=== PATIENT | female | born 1970 | race Caucasian/White ===

== ENCOUNTER 2020-07-13 10:07 | Outpatient (REF) | payer OTHER, SELFPAY ==
[2020-07-13 11:13] LABS: MANUAL DIFF FLAG NO
[2020-07-13 11:23] LABS: Basophils Absolute Auto 0.1 X10*3/uL (0.0-0.2); Basophils Percent Auto 1.2 % (0-2); Eosinophils Absolute Auto 0.1 X10*3/uL (0.0-0.4); Eosinophils Percent Auto 1.4 % (0-4); Hematocrit 41.6 % (37-47); Hemoglobin 13.9 g/dl (12.0-16.0); Imm Gran Abs Auto 0.05 X10*3/uL (0.00-0.03); Imm Gran Pct Auto 0.8 % (0.0-0.4); Lymphocytes Absolute Auto 1.7 X10*3/uL (1.2-4.9); Lymphocytes Percent Auto 29.2 % (20-40); Mean Corpuscular HGB Conc 33.4 g/dl (31.0-35.0); Mean Corpuscular Hemoglobin 30.6 pg (27.0-33.0); Mean Corpuscular Volume 91.6 fL (80-98); Mean Platelet Volume 10.9 fL (9.4-12.3); Monocytes Absolute Auto 0.5 X10*3/uL (0.1-1.2); Monocytes Percent Auto 8.3 % (2-11); Neutrophils Absolute Auto 3.5 X10*3/uL (2.0-8.3); Neutrophils Percent Auto 59.1 % (45-73); Platelet Count 292 X10*3/uL (160-400); Red Blood Count 4.54 X10*6/uL (4.20-5.50); Red Cell Distribution Width 12.1 % (11.0-16.0); White Blood Count 5.9 X10*3/uL (4.8-10.8)
[2020-07-13 11:53] LABS: Alanine Aminotransferase 12 U/L (0-31); Anion Gap 11 (12-20); Aspartate Amino Transferase 15 U/L (5-31); Blood Urea Nitrogen 11 mg/dL (9-16); Calcium 9.1 mg/dL (8.4-10.2); Carbon Dioxide 25 mmol/L (22-29); Chloride 105 mmol/L (96-108); Cholesterol 210 mg/dL; Estimated Glomerular Filt Rate > 60; Glucose Fasting 82 mg/dL (60-99); HDL Cholesterol 84 mg/dL; LDL Cholesterol Calculated 113 mg/dl; Potassium 4.3 mmol/l (3.3-5.1); Sodium 137 mmol/L (135-145); Triglycerides 68 mg/dL
[2020-07-13 12:15] LABS: Free T4 (Free Thyroxine) 1.49 ng/dL (0.71-1.85); Thyroid Stimulating Hormone 1.07 uIU/mL (0.32-4.0)
== END 2020-07-13 10:08 | disposition home or self-care (01) ==
LOC: HO.HMGCLDS 10:07
PROVIDERS: PCP Internal Medicine; Visit Provider Internal Medicine
DX: E03.9 Hypothyroidism, unspecified (principal); Z00.01 Encounter for general adult medical examination with abnormal findings; I10 Essential (primary) hypertension
CPT/HCPCS: 36415; 80048; 80061; 84439; 84443; 84450; 84460; 85025

== ENCOUNTER → 2020-10-25 14:42 | Outpatient (REF) | payer OTHER, SELFPAY ==
--- NOTE | 2020-10-25 14:46 | CA_ITS ---
Transthoracic Echocardiogram Patient (Last, First, Middle): Sujey Rodriguez, Gender: Female Date of : 1970 Age: 50 Procedure Date: 10/25/2020 Procedure Type: Transthoracic Echocardiogram Location: OP Height: 157.48 cm Weight: 58.97 kg BSA: 1.59 m2 Heart Rate: bpm BP: 110 / 50 mmHg General Practice: [facility] Referring MD: Corin Shah MD Symptoms: R00.2 - Palpitations Study Quality: Good ECG Rhythm: Sinus Conclusions: - The left ventricular systolic function is normal. The visually estimated ejection fraction is between 60-65%. - No obvious valvular pathology seen on this study. Findings Left Ventricle Normal left ventricular cavity size. There is normal left ventricular wall thickness. The left ventricular systolic function is normal. The visually estimated ejection fraction is between 60-65%. The calculated ejection fraction is 67% by biplane method. There is no evidence of regional wall motion abnormalities. Diastolic function is normal for age. Right Ventricle Normal right ventricular cavity size and systolic function. Atria Both atria are normal in size. Aortic Valve There is a normal trileaflet aortic valve. There is no aortic valve stenosis. There is no aortic valve regurgitation. Mitral Valve The mitral valve appears normal. There is trace mitral valve regurgitation. There is no mitral valve stenosis. Pulmonic Valve The pulmonic valve was not well visualized. Tricuspid Valve Normal tricuspid valve structure. There is trace tricuspid valve regurgitation. The pulmonary artery systolic pressure is normal. Great Vessels The aortic annulus, sinuses of valsalva, and asc aorta are normal in size. Venous The inferior vena cava is normal in size and collapses greater than 50% with inspiration. Pericardium/Pleural There is no evidence of pericardial effusion. Prior Study Comparison No prior study available for comparison. Recommendations, Care & Conclusions No obvious valvular pathology seen on this study. Measurements 2D Linear Measurements IVSd: 0.72 0.6-0.9/0.6-1.0 cm LVIDd: 4.31 3.9-5.3/4.2-5.9 cm LVIDd Index: 2.71 2.4-3.2/2.2-3.1 cm/m2 LVIDs: 3.11 2.0-3.6 cm LVPWd: 0.68 0.7-1.1 cm Ao Root: 2.80 2.1-3.5 cm LA Diam: 2.90 2.7-3.8/3.0-4.0 cm LAIDs Index: 1.82 1.5-2.3 cm/m2 LV Mass: 110.55 67-162/88-224 g LV Mass Index: 69.53 43-95/49-115 g/m2 LVOT Diam: 2.00 3.0+(-)1.3 cm 2D Systolic Function EF 4C: 65.50 >55% EF 2C: 67.40 >55% EF BiP: 66.80 >55% Mitral Valve MV Pk E: 0.88 MV PK A: 0.52 MV Decel Time: 246.00 E/A: 1.70 E'Lateral: 12.70 E'Medial: 10.30 E/E' Med: 8.60 E/E' Lat: 6.90 PHT: 72.00 MVA PHT: 3.06 Decel Clarke: 3.58 Aortic Valve AoV Pk Michael: 1.52 AoV Mn Michael: 0.94 AoV VTI: 0.27 AoV Pk Grad: 9.00 Aov Mn Grad: 4.00 KARIE Cont.VTI: 2.12 LVOT LVOT Pk Michael: 1.00 LVOT Mn Michael: 0.61 LVOT VTI: 0.18 LVOT Pk Grad: 4.00 LVOT Mn Grad: 2.00 LVOT Diam: 2.00 LVOT Area: 3.14 Diastolic Function MV Pk E: 0.88 MV Pk A: 0.52 E/A: 1.70 E'Medial: 10.30 E/E' Med: 8.60 E' Laterial: 12.70 E/E' Lat: 6.90 Tricuspid Valve TR Pk Michael: 2.02 TR Pk Grad: 16.00 RA Press: 3.00 RVSP: 19.00 Great Vessels Aorta Ao Root-2D: 2.80 2.0-3.7 cm Ao Asc: 2.60 2.1-3.4 cm Ao Arch: 2.70 Updated in Other Vendor System with Status of Final Kehinde Valenzuela MD electronically signed on 10/27/2020 2:31:32 PM with status of Final
== END ==
LOC: HO.CARD 14:42
PROVIDERS: PCP Internal Medicine; Visit Provider Internal Medicine
DX: R00.2 Palpitations (principal)
CPT/HCPCS: 93306

== ENCOUNTER → 2020-11-27 14:45 | Outpatient (BNVA) | payer OTHER, SELFPAY | PROVIDERS: PCP Internal Medicine; Visit Provider Anesthesiology ==

== ENCOUNTER 2021-01-16 06:25 | Outpatient (REF) | payer OTHER, SELFPAY ==
--- NOTE | ~2021-01-16 | FL_ITS ---
EXAMINATION: XR FLUOROSCOPY WITH IMAGES CLINICAL INFORMATION: Sacrococcygeal disorder. COMPARISON: None. TECHNIQUE: Fluoroscopy performed by Desiree Haas. Fluoroscopy time: 0.1 minutes DAP: 1.25 Gycm2 Images: 2 FINDINGS: There are 2 images obtained of left SI joint with needle overlying the left SI joint and contrast opacifying the soft tissues adjacent to left SI joint. Visualized bones and soft tissues are normal. FL/FL guidance in treatment room IMPRESSION: Fluoroscopy was provided to Desiree Haas for left SI joint injection
== END 2021-01-16 06:26 | disposition home or self-care (01) ==
LOC: HO.RADIR 06:25
PROVIDERS: Visit Provider Anesthesiology
DX: M53.3 Sacrococcygeal disorders, not elsewhere classified (principal)
CPT/HCPCS: 27096; J3300; Q9967

== ENCOUNTER 2021-02-06 12:23 | Outpatient (REF) | payer OTHER, SELFPAY ==
[2021-02-06 14:41] LABS: Free T4 (Free Thyroxine) 1.74 ng/dL (0.71-1.85); Thyroid Stimulating Hormone 0.47 uIU/mL (0.32-4.0)
== END 2021-02-06 12:24 | disposition home or self-care (01) ==
LOC: HO.HMGCLDS 12:23
PROVIDERS: PCP Internal Medicine; Visit Provider Internal Medicine
DX: E03.9 Hypothyroidism, unspecified (principal)
CPT/HCPCS: 36415; 84439; 84443

== ENCOUNTER → 2021-02-28 10:59 | Outpatient (BNVA) | payer OTHER, SELFPAY | PROVIDERS: PCP Internal Medicine; Visit Provider Anesthesiology ==

== ENCOUNTER 2021-07-13 12:30 | Outpatient (REF) | payer OTHER, SELFPAY ==
[2021-07-13 14:35] LABS: Alanine Aminotransferase 15 U/L (0-31); Anion Gap 14 (12-20); Aspartate Amino Transferase 17 U/L (5-31); Blood Urea Nitrogen 9 mg/dL (9-16); Calcium 9.8 mg/dL (8.4-10.2); Carbon Dioxide 24 mmol/L (22-29); Chloride 105 mmol/L (96-108); Cholesterol 238 mg/dL; Estimated Glomerular Filt Rate > 60; Glucose Fasting 77 mg/dL (60-99); Potassium 4.3 mmol/L (3.3-5.1); Sodium 139 mmol/L (135-145); Triglycerides 74 mg/dL
[2021-07-13 14:41] LABS: HDL Cholesterol 92 mg/dL; LDL Cholesterol Calculated 132 mg/dl
[2021-07-13 14:58] LABS: Free T4 (Free Thyroxine) 1.45 ng/dL (0.71-1.85); Thyroid Stimulating Hormone 1.09 uIU/mL (0.32-4.0); Vitamin D 25-OH Total 22.7 ng/mL (>30)
== END 2021-07-13 12:31 | disposition home or self-care (01) ==
LOC: HO.HMGCLDS 12:30
PROVIDERS: PCP Internal Medicine; Visit Provider Internal Medicine
DX: Z00.01 Encounter for general adult medical examination with abnormal findings (principal); E03.9 Hypothyroidism, unspecified; E55.9 Vitamin D deficiency, unspecified; I10 Essential (primary) hypertension
CPT/HCPCS: 36415; 80048; 80061; 82306; 84439; 84443; 84450; 84460

== ENCOUNTER → 2021-07-18 13:33 | Outpatient (BNVA) | payer OTHER, SELFPAY | PROVIDERS: PCP Internal Medicine; Referring Provider Internal Medicine; Visit Provider Nurse Practitioner Family ==

== ENCOUNTER 2021-09-06 07:25 | Day surgery (SDC) | payer BC, SELFPAY ==
[2021-08-31 10:44] VITALS: BMI 24.7
--- NOTE | 2021-09-05 09:31 | HO.ANESPROP2 ---
Documented by User: Nguyen Rust NP 09/05/21 09:40 HPI - Anesthesia Eval Consult details Narrative: 51yo F Colonoscopy PMFSH Active Problems Active Problems: All Active Problems (Updated 03/08/21 @ 10:32 by Corin Shah MD) Vitamin D deficiency (Acute) Acute anxiety (Acute) Sacroiliac joint dysfunction of left side (Acute) Pain of left sacroiliac joint (Acute) Encounter for general adult medical examination with abnormal findings (Acute) Acquired hypothyroidism (Acute) Adenomyosis (Acute) Past Medical History Medical History Acquired hypothyroidism Acute anxiety Adenomyosis History of diverticulitis Pain of left sacroiliac joint Sacroiliac joint dysfunction of left side Vitamin D deficiency Family History Family History Father Unknown family medical history Substance use disorder Mother CVD (cardiovascular disease) Brother Melanoma Substance use disorder Daughter No problems noted. 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 Current occupational exposures/hazards: No Meds Allergies Allergy/AdvReac Type Severity Reaction Status Date / Time codeine AdvReac Unknown stomach Verified 08/05/21 17:08 upset Home Medications Medication Instructions Recorded Confirmed Last Taken Type norethindrone 1 mg-ethinyl 1 tab PO DAILY 05/25/20 08/31/21 09/05/21 06:30 History estradiol 10 mcg (24)-iron 10 mcg(2) tablet Exam Exam Date and Time: September 05, 2021 0931 Height,Weight and Vital Signs: Height 5 ft 2 in Weight 61.36 kg Pertinent Lab Results Pertinent Lab Results: Laboratory Tests 07/13/20 07/13/21 10:18 12:34 WBC 5.9 Hgb 13.9 Hct 41.6 Plt Count 292 Sodium 139 Potassium 4.3 Chloride 105 Carbon Dioxide 24 BUN 9 Creatinine 0.73 Assessment and Plan Assessment Anesthesia Assessment: Chart Reviewed Documented by User: Racquel Cotton MD 09/06/21 08:05 [facility] Past Medical History Medical History Acquired hypothyroidism Acute anxiety Adenomyosis History of diverticulitis Pain of left sacroiliac joint Sacroiliac joint dysfunction of left side Vitamin D deficiency Functional capacity: independent ambulation Patient : No Family History Family History Father Unknown family medical history Substance use disorder Mother CVD (cardiovascular disease) Brother Melanoma Substance use disorder Daughter No problems noted. 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 Current occupational exposures/hazards: No Meds Allergies Allergy/AdvReac Type Severity Reaction Status Date / Time codeine AdvReac Unknown stomach Verified 08/05/21 17:08 upset Home Medications Medication Instructions Recorded Confirmed Last Taken Type norethindrone 1 mg-ethinyl 1 tab PO DAILY 05/25/20 08/31/21 09/05/21 06:30 History estradiol 10 mcg (24)-iron 10 mcg(2) tablet Exam Airway Mallampati Class: II TM Dist: >3cm Neck ROM: Full Heart: RRR Lungs: CTA Assessment and Plan Final Anesthetic Review Family History of Problems with Anesthesia: No History of Problems with Anesthesia: No NPO: Yes ASA Class: II Final Preanesthetic Review: No Changes in Pt Med Stat, Meds/Allgs Chart Reviewed, Consent Obtained/Reviewed and Anes Risks/Benef Reviewed Patient Risk: Low Procedure Risk: Low Anesthetic Plan Anesthetic Plan: MAC: Disposition: Standard PACU
[2021-09-06 07:54] VITALS: BP 126/67; PULSE 75; RESP 16; TEMP 36.6; O2SAT 99
[2021-09-06] MEDS: Lactated Ringers 1,000 ML 100 ML IVCONT (08:01)
--- NOTE | 2021-09-06 08:34 | MHC.SHP ---
Pre-Procedural Eval Section A Date of Service: 09/06/21 Section B Chief Complaint: Screening Relevant Family History (Specify if Yes): No Relevant Social History: None Present Medications: see Short Stay Collaborative assessment Medical History: Significant History (Acquired hypothyroidism Acute anxiety Adenomyosis History of diverticulitis Pain of left sacroiliac joint Sacroiliac joint dysfunction of left side Vitamin D deficiency) History of Previous Operations: Relevant previous surgery/procedure and date(s) (Hx of cholecystectomy Hx of colonoscopy) Allergies: Allergies Allergy/AdvReac Type Severity Reaction Status Date / Time codeine AdvReac Unknown stomach Verified 08/05/21 17:08 upset Review of Systems Sugical H&P ROS: Negative: Constitution, Cardiovascular, Respiratory, Neurological, Psychiatric, Hem-Onc, Allergic/Immunologic, Gastrointestinal, Genitourinary, Musculoskeletal, Integumentary, Endocrine and Eyes/Ears/Nose/Throat Exam Surgical H&P Exam: Normal: HEENT, Normal: Heart, Normal: Lungs, Normal: Extremities, Normal: Abdomen, Normal: Skin and Normal: Neurological Plan Diagnosis/Plan: Unchanged I have reviewed the history and physical and performed a pertinent physical examination on my patient. No changes have occurred unless specified.
--- NOTE | 2021-09-06 08:36 | P.BOP_ITS ---
Brief Operative Note Date of Service: 09/06/21 Pre-op diagnosis: colon screening Post-op diagnosis: same Procedure: see op note Surgeon: Jeni Miller MD Anesthesia: MAC Was an [employer] used for this Procedure?: No Estimated blood loss (mL): 0 Condition: stable Disposition: PACU
--- NOTE | 2021-09-06 08:59 | W.PM.OPN ---
Operative Note Operative Note Date of Service: 09/06/21 Narrative: Operative Information Procedure Description: Colonoscopy COLONOSCOPY Instrument: Olympus variable stiffness pediatric scope 190L Colonoscopy Monitoring: Vital signs and clinical assessment, continuous EKG monitoring, Pulse oximetry, Carbon Dioxide monitoring and blood pressure monitoring were done throughout the procedure. Colon withdrawal time was 7 minutes. Procedure: The patient was placed in the left lateral decubitis position and pre-procedure medications were administered. After a digital rectal examination of the ano-rectum, the video colonoscope was inserted into the rectum and advanced through the colon to the cecum/TI. The colonoscope was slowly withdrawn in a retrograde panoramic fashion and the colon mucosa was carefully examined including a retroflexed view of the rectum. Findings and interventions are described below. Procedure Difficulty: easy Findings: Terminal Ileum-normal right sided retroflexion was normal Cecum: 4-5- mm sessile polyp removed with forceps Ascending Colon: normal Transverse Colon -normal Descending Colon:normal Sigmoid Colon: moderate severe diverticula of varying sizes with tight colon, and mucosal hypertrophy Rectum: Retroflexion with small internal hemorrhoids, grade II Anorectum - internal hemorrhoids seen at anal verge Colon preparation: Paterson Bowel Preparation Scale Right colon; 2 Transverse colon: 3 Left colon; 2 (0 = Unprepared colon segment with mucosa not seen due to solid stool that cannot be cleared. 1 = Portion of mucosa of the colon segment seen, but other areas of the colon segment not well seen due to staining, residual stool and/or opaque liquid. 2 = Minor amount of residual staining, small fragments of stool and/or opaque liquid, but mucosa of colon segment seen well. 3 = Entire mucosa of colon segment seen well with no residual staining, small fragments of stool or opaque liquid) Impression and Post Procedure Diagnosis: polyp internal hemorrhoids diverticular disease Plan: High fiber diet leaflet Avoid straining at stool, epsom salts and sitz bath, anusol supps or cream Repeat Colonoscopy in 5-7 years if adenomatous polyp or 10 yrs if benign or earlier if clinically indicated Above findings were reviewed with the patient and relevant handouts were provided if indicated.
[2021-09-06 09:02] VITALS: BP 103/56; PULSE 68; RESP 16; TEMP 36.1; O2SAT 99
--- NOTE | 2021-09-06 09:11 | PC.NURSE ---
patient sitting up in bed. md kirby by bedside.
[2021-09-06 09:17] VITALS: BP 127/57; PULSE 66; RESP 16; TEMP 36.2; O2SAT 100
--- NOTE | 2021-09-06 12:54 | HO.POSTANES ---
Post Anesthesia Evaluation Post Anesthesia Evaluation Vital Signs: Vital Signs Temp Pulse Resp BP Pulse Ox 09/06/21 09:17 97.1 F 66 16 127/57 L 100 09/06/21 09:02 96.9 F 68 16 103/56 L 99 09/06/21 07:54 97.8 F 75 16 126/67 99 Anesthesia: Monitored Mental Status: Awake Pain Control: Satisfactory Nausea/Vomiting: None Hydration: Adequate Anesthesia-Related Issues: No Anes. Related Issues
== END 2021-09-06 09:53 | disposition home or self-care (01) ==
PROVIDERS: PCP Internal Medicine; Visit Provider Internal Medicine Gastroenterology
PROC: 0DJD8ZZ Inspection of Lower Intestinal Tract, Via Natural or Artificial Opening Endoscopic (ICD-10-PCS; CPT 45378; principal; 2021-09-06 08:30)
DX: Z12.11 Encounter for screening for malignant neoplasm of colon (principal); D12.0 Benign neoplasm of cecum; K57.30 Diverticulosis of large intestine without perforation or abscess without bleeding; K64.1 Second degree hemorrhoids; E03.9 Hypothyroidism, unspecified; F41.1 Generalized anxiety disorder; E55.9 Vitamin D deficiency, unspecified; N80.0 Endometriosis of uterus; Z79.899 Other long term (current) drug therapy; Z90.49 Acquired absence of other specified parts of digestive tract
CPT/HCPCS: 45380; 88305

== ENCOUNTER → 2021-09-25 08:00 | Outpatient (BNVA) | payer BC, SELFPAY | PROVIDERS: Referring Provider Internal Medicine; Visit Provider Nurse Practitioner Family ==

== ENCOUNTER 2022-11-01 08:33 | Outpatient (REF) | payer BC, SELFPAY ==
[2022-11-01 12:46] LABS: Alanine Aminotransferase 13 U/L (0-31); Anion Gap 10 (12-20); Aspartate Amino Transferase 14 U/L (5-31); Blood Urea Nitrogen 8 mg/dL (9-16); Carbon Dioxide 26 mmol/L (22-29); Chloride 109 mmol/L (96-108); Cholesterol 206 mg/dL; Estimated Glomerular Filt Rate > 60; Free T4 (Free Thyroxine) 1.25 ng/dL (0.71-1.85); Glucose Fasting 90 mg/dL (60-99); HDL Cholesterol 89 mg/dL; LDL Cholesterol Calculated 104 mg/dl; Potassium 4.1 mmol/L (3.3-5.1); Sodium 141 mmol/L (135-145); Thyroid Stimulating Hormone 4.48 uIU/mL (0.32-4.0); Triglycerides 69 mg/dL; Vitamin D 25-OH Total 31.4 ng/mL (>30)
== END 2022-11-01 08:34 | disposition home or self-care (01) ==
LOC: HO.HMGCLDS 08:33
PROVIDERS: PCP Internal Medicine; Visit Provider Internal Medicine
DX: E03.9 Hypothyroidism, unspecified (principal); E55.9 Vitamin D deficiency, unspecified; F41.9 Anxiety disorder, unspecified
CPT/HCPCS: 36415; 80048; 80061; 82306; 84439; 84443; 84450; 84460

== ENCOUNTER 2022-11-05 10:27 | Outpatient (AMB) | payer BC, SELFPAY ==
[2022-11-05 10:41] VITALS: BP 122/80; PULSE 74; O2SAT 98; BMI 25.0
--- NOTE | 2022-11-05 10:41 | A.OFFPC_ITS ---
Vital Signs 11/05/22 10:41 Height 5 ft 2 in Weight 137 lb 2 oz BMI 25.0 BP 122/80 Blood Pressure Location Lt brachial Position Sitting Pulse 74 Pulse Source Pulse Oximeter Pulse Oximetry (%) 98 Oxygen Delivery Method Room Air Intake Visit Reasons: Medication follow up Intake Note: Pt is here today for med f/u Allergies codeine Adverse Reaction (Unknown, Verified 05/22/23 13:05) stomach upset Medication List - Last Reconciled 11/05/22 by Corin Shah MD hydroxyzine HCl 25 mg PO BEDTIME PRN levothyroxine 112 mcg PO DAILY norethindrone-e.estradiol-iron 1 mg-10 mcg (24)/10 mcg (2) (Lo Loestrin Fe) 0 tabs PO Tobacco use date assessed: 11/05/22 HPI Medication follow up HPI Details 52-year-old lady with hypothyroidism, he re today for follow-up. Currently on levothyroxine 112 mcg once a day, states she is feeling well on medication. Has anxiety disorder, currently takes hydroxyzine as needed [facility] Medical History (Updated 11/05/22 @ 10:53 by Corin Shah MD) History of diverticulitis Vitamin D deficiency Acute anxiety Sacroiliac joint dysfunction of left side Pain of left sacroiliac joint Acquired hypothyroidism Adenomyosis Surgical History Hx of colonoscopy Hx of cholecystectomy Family History Father Unknown family medical history Substance use disorder Mother CVD (cardiovascular disease) Brother Melanoma Substance use disorder Daughter No problems noted. 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 1. Little interest or pleasure in doing things: not at all 2. Feeling down, depressed, or hopeless: not at all 3. Trouble falling or staying asleep, or sleeping too much: not at all 4. Feeling tired or having little energy: not at all 5. Poor appetite or overeating: not at all 6. Feeling bad about yourself - or that you are a failure or have let yourself or your family down: not at all 7. Trouble concentrating on things, such as reading the newspaper or watching television: not at all 8. Moving or speaking so slowly that other people could have noticed. Or the opposite - being so fidgety or restless that you have been moving around a lot more than usual: not at all 9. Thoughts that you would be better off or of hurting yourself in some way: not at all Total score: 0 Depression Screening Interpretation: Negative 42131 - PHQ-9 Billing: Yes Source: Developed by Drs. Christian Aden, Vicky Nayak, Dayton Ziegler and colleagues, with an educational harjeet from [employer]. Thrive Questionnaire Date Thrive assessed: 11/05/22 I am a: Patient What is your living situation today?: I have a steady place to live Within the past 12 months, did the food you bought not last and you didn't have the money to get more?: Never true Within the past 12 months, did you worry whether your food would run out before you got money to buy more?: Never true Do you have trouble paying for medicines?: No Do you have trouble getting transportation to medical appointments?: No Do you have trouble paying your heating and electricity bill?: No Do you have trouble taking care of your child, family member or friend?: No Do you have trouble with day-to-day activities such as bathing, preparing meals, shopping, managing finances, etc.?: No Are you currently unemployed and looking for a job?: No Are you interested in more education?: No AUDIT C Alcohol Use Questionnaire (AUDIT-C) 1. How often do you have a drink containing alcohol?: Monthly or less 2. How many drinks containing alcohol do you have on a typical day when you are drinking?: 1 or 2 3. How often do you have six or more drinks on one occasion?: Never Total Score: 1 LOGAN-7 AMB Questionnaire LOGAN-7 Date LOGAN - 7 assessed: 11/05/22 Feeling nervous, anxious, or on edge: 0 = Not at all Not being able to stop or control worryin = Not at all Worrying too much about different things: 0 = Not at all Trouble relaxin = Not at all Being so restless that it is hard to sit still: 0 = Not at all Becoming easily annoyed or irritable: 0 = Not at all Feeling afraid as if something awful might happen: 0 = Not at all Total LOGAN-7 score (0-4 normal; 5-9 mild; 10-14 moderate; 15-21 severe): 0 Source: Developed by Drs. Christian Aden, Vicky Nayak, Dayton Ziegler and colleagues, with an educational harjeet from [employer]. LOGAN-7 Assessment Billing LOGAN-7 Assessment Tool: LOGAN-7 Assessment 80082 Review of Systems Const Denies fever(s), Denies headache(s) and Denies malaise Eyes Denies change in vision ENT Reports no additional complaints, Reports Normal hearing present, Denies dysphagia, Denies dizziness, Denies headache(s) and Denies nasal congestion Card Reports no additional complaints Resp Reports no additional complaints GI Denies abdominal pain, Denies melena, Denies change in bowel habits, Denies dysphagia, Denies dyspepsia and Denies heartburn Reports no additional complaints Musc Reports no additional complaints Neuro Reports no additional complaints, Reports Normal hearing present, Denies dizziness, Denies headache(s) and Denies Sensory deficit (Neuro) Psych Reports no additional complaints Endo Reports no additional complaints Physical exam (Primary Care) Vital Signs: Last Vital Signs Pulse 74 11/05/22 10:41 BP 122/80 11/05/22 10:41 Pulse Ox 98 11/05/22 10:41 Oxygen Delivery Method Room Air 11/05/22 10:41 BMI result Body Mass Index 25.0 Tobacco/Smoking Status: Tobacco use Status Tobacco use date assessed 11/05/22 11/05/22 10:48 Patient Tobacco Use Status Never used Tobacco 11/05/22 10:48 e-Cigarette/Vaping Use Never Used 11/05/22 10:48 PHQ-9: PHQ-9 Score PHQ-9: Total score 0 11/05/22 10:53 Depression Screening Interpretation: Negative Thrive Assessment: Date of Thrive Assessment Date Thrive assessed 11/05/22 11/05/22 10:48 Const General: cooperative, healthy appearing, no acute distress and alert Limitations: no limitations HENMT Head: Yes normal to inspection and Yes normocephalic Face and sinus: Yes normal facial exam and Yes face symmetric Mouth: Normal oral and palatal mucosa present, oropharynx normal and moist mucous membranes Eyes Conjunctivae: conjunctivae normal Sclerae: sclerae normal Pupils: Equal, round and reactive pupils present EOM: EOMs intact bilaterally Neck Neck: Yes full ROM and Yes no lymphadenopathy Thyroid: Thyroid normal Carotids: normal carotid upstroke Lymphatic: no lymphadenopathy noted Resp Effort & Inspection: normal respiratory effort and able to speak in complete sentences Auscultation: clear to auscultation bilaterally Cardio Jugular venous distension: no JVD Rate: regular rate Rhythm: regular rhythm Heart sounds: S1 normal heart sound present and S2 normal heart sound present GI Inspection: Yes normal to inspection Palpation (GI): Soft to palpation Auscultation: normal bowel sounds Neuro Cranial nerves: Yes Equal, round and reactive pupils present and Yes Normal hearing present Sensory Exam: No Sensory deficit (Neuro) Extrem General: Yes normal to inspection, Yes full ROM, Yes no pedal edema and Yes normal gait Psych Appearance: grossly normal and well kempt Mental Status: mental status grossly normal Speech and movement: Normal speech and movement present Affect: normal affect Attitude: cooperative Thought process: Normal thought process present Thought content: Normal thought content present Results Reviewed Results Reviewed: RUN: 11/05/22 1053 PAGE 1 [facility] [address] [place] [id number] Carburetor Mechanic: Fabricio Saldana M.D. Specimen Inquiry Name: Sujey Rodriguez Age/Sex: 52/F : 1970 [id number]#: [id number] Attend Dr: Corin Shah MD Re11/01/22 Status: DEP [facility] Disch: SPEC : [id number] ANDRES: 11/01/22 STATUS: COMP REQ : [id number] RECD: 11/01/[address]: Corin Shah MD COMP: 11/01/22 ENTERED: 11/01/[address] [facility] [address]: ORDERED: Met Prof Fast, AST, ALT, Lipid Panel, Vitamin D 25-OH, Free T4, TSH Test Result Flag Reference Site Sodium 141 135-145 mmol/L Potassium 4.1 3.3-5.1 mmol/L CL 109 H 96-108 mmol/L CO2 26 22-29 mmol/L Gap 10 L 12-20 BUN 8 L 9-16 mg/dL Creat 0.78 0.5-1.4 mg/dL EGFR > 60 NOTE: For -[place] individuals, multiply the result by 1.210. Chronic Kidney Disease: Estimated GFR < 60 mL/min/1.73m2 Severe Kidney Disease: Estimated GFR < 15 mL/min/1.73m2 FBS 90 60-99 mg/dL CA 9.0 # 8.4-10.2 mg/dL AST (GOT) 14 5-31 U/L ALT (GPT) 13 0-31 U/L Triglyceride 69 mg/dL Desirable Triglyceride: less than 150 mg/dL Borderline High Triglyceride 150-199 mg/dL High Triglyceride: 200-499 mg/dL Very High Triglyceride: greater than or equal to 5OO mg/dL Chol 206 mg/dL Desirable Cholesterol: less than 200 mg/dL Borderline High Cholesterol: 200-239 mg/dL High Cholesterol: greater than 239 mg/dL LDL Calculated 104 mg/dl Desirable LDL: less than 100 mg/dL Near Optimal/Above Optimal LDL: 110-129 mg/dL Borderline High LDL: 130-159 mg/dL High LDL: 160-189 mg/dL Very High LDL: greater than or equal to 190 mg/dL HDL 89 mg/dL Desirable HDL: greater than 40 mg/dL Note: This HDL assay may give artificially low results in patients with liver disease. Vit D 25-OH Tot 31.4 >30 ng/mL Health Based Reference Values* < 20 ng/mL Deficient 20-30 ng/mL Insufficient > 30 ng/mL Sufficient *Joss CARNEY. N Engl J Med. 2007;357:266-280 Care must be taken in interpreting Vitamin D results from different laboratories and methodologies. Published data demonstrated that results from patients undergoing hemodialysis may show a negative bias when tested with various automated 25-OH vitamin D assays when compared to LC-MS/MS. When testing samples from patients whose predominant form of Vitamin D is Vitamin D2, such as patients receiving Vitamin D2 supplementation, results that are subtherapeutic should be confirmed with another method such as LC-MS/MS. Free T4 1.25 0.71-1.85 ng/dL TSH 3rd Gen. 4.48 H 0.32-4.0 uIU/mL Note: A sustained TSH level above 2.5 uIU/mL may warrant further investigation. TSH 3rd Generation ([facility]) Assessment and Plan Assessment & Plan (1) Acquired hypothyroidism: Code(s): E03.9 - Hypothyroidism, unspecified Plan: Reviewed thyroid levels, within normal limits, continued on current dose of levothyroxine, recheck again in 6 my Orders: Orders Free T4 (Free Thyroxine) 6 Months E03.9 - Hypothyroidism, unspecified, Z78.0 - Asymptomatic menopausal state, Z00.01 - Encounter for general adult medical examination with abnormal findings Lipid Panel 6 Months E03.9 - Hypothyroidism, unspecified, Z78.0 - Asymptomatic menopausal state, Z00.01 - Encounter for general adult medical examination with abnormal findings Alanine Aminotransferase 6 Months E03.9 - Hypothyroidism, unspecified, Z78.0 - Asymptomatic menopausal state, Z00.01 - Encounter for general adult medical examination with abnormal findings Glucose Fasting 6 Months E03.9 - Hypothyroidism, unspecified, Z78.0 - Asymptomatic menopausal state, Z00.01 - Encounter for general adult medical examination with abnormal findings Vitamin D 25-OH Total 6 Months E03.9 - Hypothyroidism, unspecified, Z78.0 - Asymptomatic menopausal state, Z00.01 - Encounter for general adult medical examination with abnormal findings Thyroid Stimulating Hormone 6 Months E03.9 - Hypothyroidism, unspecified, Z78.0 - Asymptomatic menopausal state, Z00.01 - Encounter for general adult medical examination with abnormal findings Aspartate Amino Transferase 6 Months E03.9 - Hypothyroidism, unspecified, Z78.0 - Asymptomatic menopausal state, Z00.01 - Encounter for general adult medical e xamination with abnormal findings Medications: New norethindrone-e.estradiol-iron 1 mg-10 mcg (24)/10 mcg (2) (Lo Loestrin Fe) 0 tabs PO Refilled levothyroxine 112 mcg PO DAILY 90 tabs 3RF E03.9 - Hypothyroidism, unspecified Coding Level of Care Code Est Pt Level 3 (58464) Diagnoses Acquired hypothyroidism E03.9 Additional Codes LOGAN-7 Assessment Billing - LOGAN-7 Assessment Tool: LOGAN-7 Assessment 70131 ([id number])
== END 2022-11-05 11:06 | disposition home or self-care (01) ==
LOC: HO.HMGC 10:27
PROVIDERS: PCP Internal Medicine; Visit Provider Internal Medicine
DX: E03.9 Hypothyroidism, unspecified (principal)
CPT/HCPCS: 99213

== ENCOUNTER 2023-05-22 12:52 | Outpatient (AMB) | payer BC, SELFPAY ==
--- NOTE | 2023-05-22 12:55 | MHC.PC.OV ---
Vital Signs 05/22/23 12:57 Height 5 ft 2 in Weight 135 lb 2 oz BMI 24.7 BP 130/88 Blood Pressure Location Lt brachial Position Sitting Pulse 91 Pulse Source Pulse Oximeter Pulse Oximetry (%) 99 Oxygen Delivery Method Room Air Intake Visit Reasons: Annual PE Intake Note: pt is here for annual PE Is last menstrual period known: Yes Last menstrual period: 09/04/22 Allergies codeine Adverse Reaction (Unknown, Verified 05/22/23 13:05) stomach upset Medication List - Last Reconciled 05/22/23 by Corin Shah MD fluorouracil 5% 1 appl topical BID hydroxyzine HCl 25 mg PO BEDTIME PRN levothyroxine 112 mcg PO DAILY norethindrone-e.estradiol-iron 1 mg-10 mcg (24)/10 mcg (2) (Lo Loestrin Fe) 0 tabs PO valacyclovir 1,000 mg PO TID Tobacco use date assessed: 05/22/23 Dental Screening Dental Screen Date: 05/22/23 Did you have a dental visit in the last 12 months?: Yes Did you have a dental problem in the last 6 months where you did not have access to dental care?: No Was dental information given to patient?: Patient has dentist [facility] Medical History (Updated 05/22/23 @ 13:45 by Corin Shah MD) History of adenomatous polyp of colon Actinic keratosis Herpes zoster History of diverticulitis Vitamin D deficiency Acute anxiety Sacroiliac joint dysfunction of left side Pain of left sacroiliac joint Acquired hypothyroidism Adenomyosis Surgical History (Updated 05/22/23 @ 13:23 by Corin Shah MD) History of arthroscopic surgery of shoulder Hx of colonoscopy Hx of cholecystectomy Family History Father Unknown family medical history Substance use disorder Mother CVD (cardiovascular disease) Brother Melanoma Substance use disorder Daughter No problems noted. 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 Depression Screening Interpretation: Negative Depression Screening Done: Yes Source: Developed by Drs. Christian Aden, Vicky Nayak, Dayton Ziegler and colleagues, with an educational harjeet from [employer] [place]. Thrive Questionnaire Date Thrive assessed: 11/05/22 LOGAN-7 AMB Questionnaire LOGAN-7 Date LOGAN - 7 assessed: 11/05/22 Source: Developed by Drs. Christian Aden, Vicky Nayak, Dayton Ziegler and colleagues, with an educational harjeet from [place]. Review of Systems Const Denies fever(s), Denies headache(s) and Denies malaise Eyes Details: sees Dr Russell at [facility] Denies change in vision ENT Details: She goes to her dentist for dental prophylaxis every 6 months Reports no additional complaints, Reports Normal hearing present, Denies dysphagia, Denies dizziness, Denies headache(s) and Denies nasal congestion Card Reports no additional complaints Resp Reports no additional complaints GI Details: Up-to-date with her screening colonoscopy Denies abdominal pain, Denies melena, Denies change in bowel habits, Denies dysphagia, Denies dyspepsia and Denies heartburn Details: Up-to-date with her screening for cervical cancer, goes to [facility] in [place] Reports no additional complaints Musc Reports no additional complaints Skin/Breast Details: She sees [facility], up-to-date her screening mammogram, recently diagnosed with herpes zoster in left anterior cervical area, currently on Valtrex Denies breast skin changes, Denies breast pain and Denies breast mass Neuro Reports no additional complaints, Reports Normal hearing present, Denies dizziness, Denies headache(s) and Denies Sensory deficit (Neuro) Psych Reports no additional complaints Endo Reports no additional complaints Jim/Lymph Reports no additional complaints Aller/Immun Reports no additional complaints Physical exam (Primary Care) Vital Signs: Last Vital Signs Pulse 91 05/22/23 12:57 BP 130/88 05/22/23 12:57 Pulse Ox 99 05/22/23 12:57 Oxygen Delivery Method Room Air 05/22/23 12:57 BMI result Body Mass Index 24.7 Tobacco/Smoking Status: Tobacco use Status Tobacco use date assessed 05/22/23 05/22/23 13:04 Patient Tobacco Use Status Never used Tobacco 05/22/23 12:56 e-Cigarette/Vaping Use Never Used 05/22/23 12:56 Depression Screening Interpretation: Negative Thrive Assessment: Date of Thrive Assessment Date Thrive assessed 11/05/22 05/22/23 12:56 Const General: cooperative, healthy appearing, no acute distress and alert Limitations: no limitations HENMT Head: Yes normal to inspection and Yes normocephalic Ears: Abnormal EAC present cerumen impaction bilateral Face and sinus: Yes normal facial exam and Yes face symmetric Mouth: Normal oral and palatal mucosa present, oropharynx normal and moist mucous membranes Eyes Conjunctivae: conjunctivae normal Sclerae: sclerae normal Pupils: Equal, round and reactive pupils present EOM: EOMs intact bilaterally Neck Neck: Yes full ROM and Yes no lymphadenopathy Thyroid: Thyroid normal Carotids: normal carotid upstroke Lymphatic: no lymphadenopathy noted Resp Effort & Inspection: normal respiratory effort and able to speak in complete sentences Auscultation: clear to auscultation bilaterally Cardio Jugular venous distension: no JVD Rate: regular rate Rhythm: regular rhythm Heart sounds: S1 normal heart sound present and S2 normal heart sound present GI Inspection: Yes normal to inspection Palpation (GI): Soft to palpation Auscultation: normal bowel sounds General: Yes no CVA tenderness Back/Spine/Pelvis Back: no CVA tenderness and No back tenderness Skin General skin exam: no rashes or lesions noted Neuro Cranial nerves: Yes Equal, round and reactive pupils present and Yes Normal hearing present Sensory Exam: No Sensory deficit (Neuro) Extrem General: Yes normal to inspection, Yes full ROM, Yes no pedal edema and Yes normal gait Psych Appearance: grossly normal and well kempt Mental Status: mental status grossly normal Speech and movement: Normal speech and movement present Affect: normal affect Attitude: cooperative Thought process: Normal thought process present Thought content: Normal thought content present Assessment and Plan Assessment & Plan (1) Annual visit for general adult medical examination with abnormal findings: Code(s): Z00.01 - Encounter for general adult medical examination with abnormal findings Plan: Will check appropriate labs. Continue regular dental visit every 6 months and regular eye exams, at least every 2 years. Take adequate calcium in diet and vitamin-D 3 at 2000 IU per cap once a day, in addition to weight-bearing exercises to help maintain good muscle tone and weight control. Instructed to do self-breast exam, and is up-to-date with her yearly mammogram,, and cervical cancer screening up-to-date with her screening colonoscopy due again in 2026. Patient does not want to get the new COVID booster or her yearly flu vaccine (2) Actinic keratosis: Comment: ff'd at [facility] Code(s): L57.0 - Actinic keratosis Plan: Followed by [facility] (3) Acquired hypothyroidism: Code(s): E03.9 - Hypothyroidism, unspecified Plan: Continue with current dose of levothyroxine, lab ordered check for TSH and free T4 (4) Adenomyosis: Comment: By her OBGYN- [facility] Code(s): N80.0 - Endometriosis of uterus Plan: Followed by her OBGYN [facility] in [place], up-to-date with her pelvic exam and her cervical cancer screening (5) History of adenomatous polyp of colon: Code(s): Z86.010 - Personal history of colonic polyps Plan: Due for her screening colonoscopy in 2026 Coding Level of Care Code Est Pt Prev Care 40-64y(98585) Diagnoses Annual visit for general adult medical examination with abnormal findings Z00.01 Actinic keratosis L57.0 Acquired hypothyroidism E03.9 Adenomyosis N80.0 History of adenomatous polyp of colon Z86.010
[2023-05-22 12:57] VITALS: BP 130/88; PULSE 91; O2SAT 99; BMI 24.7
== END 2023-05-22 13:34 | disposition home or self-care (01) ==
PROVIDERS: Visit Provider Internal Medicine
DX: Z00.01 Encounter for general adult medical examination with abnormal findings (principal); L57.0 Actinic keratosis; E03.9 Hypothyroidism, unspecified; N80.00 Endometriosis of the uterus, unspecified; Z86.010 Personal history of colon polyps
CPT/HCPCS: 99396

== ENCOUNTER 2023-05-29 11:25 | Outpatient (REF) | payer BC, SELFPAY ==
[2023-05-29 13:44] LABS: Free T4 (Free Thyroxine) 1.41 ng/dL (0.71-1.85); Thyroid Stimulating Hormone 0.81 uIU/mL (0.32-4.0); Vitamin D 25-OH Total 49.4 ng/mL (>30)
== END 2023-05-29 11:26 | disposition home or self-care (01) ==
LOC: HO.HMGCLDS 11:25
PROVIDERS: PCP Internal Medicine; Visit Provider Internal Medicine
DX: Z00.01 Encounter for general adult medical examination with abnormal findings (principal); E03.9 Hypothyroidism, unspecified; Z78.0 Asymptomatic menopausal state
CPT/HCPCS: 36415; 82306; 84439; 84443

== ENCOUNTER 2024-09-10 12:42 | Outpatient (AMB) | payer BC, SELFPAY ==
--- NOTE | 2024-09-10 12:39 | MHC.PC.OV ---
Intake Visit Reasons: left lower quad abd pain/abt Allergies codeine Adverse Reaction (Unknown, Verified 09/10/24 12:50) stomach upset Medication List - Last Reconciled 09/10/24 by Corin Shah MD levothyroxine 112 mcg PO DAILY Tobacco use date assessed: 09/10/24 Dental Screening Dental Screen Date: 09/10/24 Did you have a dental visit in the last 12 months?: Yes Did you have a dental problem in the last 6 months where you did not have access to dental care?: No Was dental information given to patient?: Patient has dentist HPI left lower quad abd pain/abt HPI Details 54-year-old lady with history of hypothyroidism, and sigmoid diverticulosis, here today complaining of gradual onset of cramping, occasionaly sharp pain in her left lower quadrant, accompanied by bloating which has been present now on and off for a week and and getting worse over the last 3 days. Patient has been passing a regular bowel movement, denies fever or chills, no nausea . Eating makes it worse. Patient states she has had acute diverticulitis in the past and her symptoms feels the same. [facility] Medical History (Updated 09/10/24 @ 12:56 by Corin Shah MD) History of herpes zoster History of adenomatous polyp of colon Actinic keratosis History of diverticulitis Vitamin D deficiency Acute anxiety Sacroiliac joint dysfunction of left side Acquired hypothyroidism Adenomyosis Surgical History History of arthroscopic surgery of shoulder Hx of colonoscopy Hx of cholecystectomy Family History Father Unknown family medical history Substance use disorder Mother CVD (cardiovascular disease) Brother Melanoma Substance use disorder Daughter No problems noted. 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 1. Little interest or pleasure in doing things: not at all 2. Feeling down, depressed, or hopeless: not at all 3. Trouble falling or staying asleep, or sleeping too much: not at all 4. Feeling tired or having little energy: not at all 5. Poor appetite or overeating: not at all 6. Feeling bad about yourself - or that you are a failure or have let yourself or your family down: not at all 7. Trouble concentrating on things, such as reading the newspaper or watching television: not at all 8. Moving or speaking so slowly that other people could have noticed. Or the opposite - being so fidgety or restless that you have been moving around a lot more than usual: not at all 9. Thoughts that you would be better off or of hurting yourself in some way: not at all Total score: 0 Depression Screening Interpretation: Negative Depression Screening Done: Yes 60220 - PHQ-9 Billing: Yes Source: Developed by Drs. Christian Aden, Vicky Nayak, Dayton Ziegler and colleagues, with an educational harjeet from [employer]. Thrive Questionnaire Date Thrive assessed: 09/10/24 I am a: Patient What is your living situation today?: I have a steady place to live Within the past 12 months, did the food you bought not last and you didn't have the money to get more?: Never true Within the past 12 months, did you worry whether your food would run out before you got money to buy more?: Never true Do you have trouble paying for medicines?: No Do you have trouble getting transportation to medical appointments?: No Do you have trouble paying your heating and electricity bill?: No Do you have trouble taking care of your child, family member or friend?: No Do you have trouble with day-to-day activities such as bathing, preparing meals, shopping, managing finances, etc.?: No Are you currently unemployed and looking for a job?: No Are you interested in more education?: No THRIVE Score: 0 AUDIT C Alcohol Use Questionnaire (AUDIT-C) 1. How often do you have a drink containing alcohol?: Monthly or less 2. How many drinks containing alcohol do you have on a typical day when you are drinking?: 1 or 2 3. How often do you have six or more drinks on one occasion?: Never Total Score: 1 LOGAN-7 AMB Questionnaire LOGAN-7 Date LOGAN - 7 assessed: 09/10/24 Feeling nervous, anxious, or on edge: 0 = Not at all Not being able to stop or control worryin = Not at all Worrying too much about different things: 0 = Not at all Trouble relaxin = Not at all Being so restless that it is hard to sit still: 0 = Not at all Becoming easily annoyed or irritable: 0 = Not at all Feeling afraid as if something awful might happen: 0 = Not at all Total LOGAN-7 score (0-4 normal; 5-9 mild; 10-14 moderate; 15-21 severe): 0 Source: Developed by Drs. Christian Aden, Vicky Nayak, Dayton Ziegler and colleagues, with an educational harjeet from [employer]. LOGAN-7 Assessment Billing LOGAN-7 Assessment Tool: LOGAN-7 Assessment 55405 Review of Systems Const All systems reviewed & are unremarkable except as noted in HPI and below Physical exam (Primary Care) Tobacco/Smoking Status: Tobacco use Status Tobacco use date assessed 09/10/24 09/10/24 12:42 Patient Tobacco Use Status Never used Tobacco 09/10/24 12:42 e-Cigarette/Vaping Use Never Used 09/10/24 12:42 PHQ-9: PHQ-9 Score PHQ-9: Total score 0 09/11/24 17:22 Depression Screening Interpretation: Negative Thrive Assessment: Date of Thrive Assessment Date Thrive assessed 09/10/24 09/10/24 12:42 Telehealth Telehealth Telehealth Platform: [facility] Location of provider rendering services: practice address Location of patient: address on file Patient Identification confirmed using: Name, : Yes Telehealth method: video Patient verbally consented to treatment: Yes Patient verbally consented to billing insurance company: Yes Patient informed of any privacy concerns related to visit: Yes Minutes spent on Phone/Video with Pt.: 15 Coding Level of Care Code Tele Est Pt Level 3 (89910) Diagnoses Left lower quadrant abdominal pain R10.32 Acquired hypothyroidism E03.9 Additional Codes PHQ-9 - 99136 - PHQ-9 Billing: Yes ([id number]) LOGAN-7 Assessment Billing - LOGAN-7 Assessment Tool: LOGAN-7 Assessment 57521 ([id number]) Assessment & Plan Assessment & Plan (1) Left lower quadrant abdominal pain: Code(s): R10.32 - Left lower quadrant pain Category: Medical Plan: Empirically treated for possible acute diverticulitis, with ciprofloxacin 500 mg to take 1 tablet every 12 hours for 10 days. Together with metronidazole 500 mg to take 1 tablet every 12 hours for 10 days as well. Always take medication with food. As possible side effects of medication which may cause diarrhea, metallic taste in the mouth. Advise patient to go to the ER if symptoms does not improve with antibiotics after to 3 days especially if accompanied by any fever, nausea, hematochezia or vomiting. (2) Acquired hypothyroidism: Code(s): E03.9 - Hypothyroidism, unspecified Category: Medical Plan: Already to get her thyroid levels checked, already ordered, will include fasting lipid panel and liver enzymes as well as vitamin-D and CBC Orders: Orders Lipid Panel 09/10/24 E03.9 - Hypothyroidism, unspecified, R10.32 - Left lower quadrant pain, Z13.220 - Encounter for screening for lipoid disorders, Z78.0 - Asymptomatic menopausal state, Z86.010 - Personal history of colon polyps Aspartate Amino Transferase 09/10/24 E03.9 - Hypothyroidism, unspecified, R10.32 - Left lower quadrant pain, Z13.220 - Encounter for screening for lipoid disorders, Z78.0 - Asymptomatic menopausal state, Z86.010 - Personal history of colon polyps Basic Metabolic Panel Fasting 09/10/24 E03.9 - Hypothyroidism, unspecified, R10.32 - Left lower quadrant pain, Z13.220 - Encounter for screening for lipoid disorders, Z78.0 - Asymptomatic menopausal state, Z86.010 - Personal history of colon polyps Vitamin D 25-OH Total 09/10/24 E03.9 - Hypothyroidism, unspecified, R10.32 - Left lower quadrant pain, Z13.220 - Encounter for screening for lipoid disorders, Z78.0 - Asymptomatic menopausal state, Z86.010 - Personal history of colon polyps Complete Blood Count Auto Diff 09/10/24 E03.9 - Hypothyroidism, unspecified, R10.32 - Left lower quadrant pain, Z13.220 - Encounter for screening for lipoid disorders, Z78.0 - Asymptomatic menopausal state, Z86.010 - Personal history of colon polyps Alanine Aminotransferase 09/10/24 E03.9 - Hypothyroidism, unspecified, R10.32 - Left lower quadrant pain, Z13.220 - Encounter for screening for lipoid disorders, Z78.0 - Asymptomatic menopausal state, Z86.010 - Personal history of colon polyps Medications: New ciprofloxacin HCl 500 mg PO Q12H 20 tabs 0RF R10.32 - Left lower quadrant pain metronidazole Take with food 500 mg PO Q12H 20 tabs 0RF R10.32 - Left lower quadrant pain
--- OUTSIDE RECORDS SUMMARY | 2024-09-10 13:22 | XMS_ITS ---
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 Yes How often did you have a dri nk containing alcohol in the past year? 2 to 3 times a week (3 points) How many drinks did you have on a typical day when you were drinking in the past year? 1 or 2 drinks (0 point) How often did you have 6 or more drinks on one occasion in the past year? Never (0 point) Points 3 Interpretation Positive Vital Signs Temperature 97.3 degrees Fahrenheit 05/04/20 24 Blood pressure systolic 110 mm Hg 05/04/20 24 Blood pressure diastolic 80 mm Hg 024 Height 62 in 05/04/2024 Weight 131 lbs 05/04/2024 BMI 23.96 kg/m2 05/04/2024 Encounters Encounter Location Date Provider Diagnosis [facility] [address] 05/04/2024 RADHACarmen MADRIDTAMEZ Encounter for gynecological examination (general) (routine) without abnormal findings Z01.419 ; Encounter for screening mammogram for malignant neoplasm of breast Z12.31 and Other benign neoplasm of uterus, unspecified D26.9 Assessments Encounter Date Diagnosis (ICD Code) Assessment Notes Treatment Notes Treatment Clinical Notes Section Notes 05/04/2024 Encounter for gynecological examination (general) (routine) without abnormal findings (ICD-10 - Z01.419) During the visit, the following areas of concern were addressed: Discussed cervical cancer screening with either cytology alone every 3 years or high risk HPV co-testing every 5 years as per ASCCP guidelines. Advised continued annual pelvic exams. Patient encouraged to increase her level of exercise. SBE technique encouraged/tau ght. Patient reminded when annual mammogram is due. Patient encouraged to keep colon screening up to date. 05/04/2024 Encounter for screening mammogram for malignant neoplasm of breast (ICD-10 - Z12.31) 05/04/2024 Other benign neoplasm of uterus, unspecified (ICD-10 - D26.9) She states her can get her a low or no-cost ultrasound where he works. Ultrasound is to rule out uterine fibroid or adnexal mass (there is a fullness palpable behind the uterus) Plan Of Treatment Treatment Notes Assessment Notes Encounter for gynecological examination (general) (routine) without abnormal findings During the visit, the following areas of concern were addressed: Discussed cervical cancer screening with either cytology alone every 3 years or high risk HPV co-testing every 5 years as per ASCCP guidelines. Advised continued annual pelvic exams. Patient encouraged to increase her level of exercise. SBE technique encouraged/taught. Patient reminded when annual mammogram is due. Patient encouraged to keep colon screening up to date. Other benign neoplasm of uterus, unspeci fied She states her can get her a low or no-cost ultrasound where he works. Ultrasound is to rule out uterine fibroid or adnexal mass (there is a fullness palpable behind the uterus) Pending Test Test Name Order Date ULTRASOUND: PELVIC W/TRANSVAGINAL 2023 MM Digital Screening Mammogram 3D 2023 Next Appt Details Follow Up: 1 Year, Reason: Y early School Adjustment Counselor Exam Provider Name:RADHA Schaffer, 05/12/2025 09:00:00 AM, [address], [address], [place], [address], Progress Notes * CANDY MCCORDB:[birth year] (54 yo F)Acc No.[id number]:05/04/2024 PROGRESS NOTES Patient:SUJEY DUFFY Provider:?RADHA TAMEZ MD :1970???Age:54 Y???Sex:Female D ate:05/04/2024 Address:[address] [place], [place] [id number] Pcp:EMELIA SOLARES MD Subjective: * Chief Complaints: * ???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 ? She has been in state of good health since her last exam. She has the following concerns: none ? She has received the Moderna Covid-19 vaccine. ? Relationship status: for 31 years.? She is sexually active. Sexual partner(s): male. She does not wish to have STI testing. ? Menses: absent;? ?she actually stopped taking OCPs in 11/2023 - has had no bleeding since then. ? Contraception:? none, is likely menopausal ? She does not report vaginal dryness. She does not have hot flashes/night sweats. ? The patient has never had an abnormal pap smear. Her most recent pap smear was 07/04/2020 - NIL, neg HR HPV. Next due for cotesting in 2024. ? She has not been diagnosed with breast cancer. She does not have a family history of breast cancer. Her last mammogram was 09/24/22 at [facility]?- incomplete due to inadequate film of axilla due to lack of mobility of arm. She feels she's had one in the last year. ? She does not have a family history of colon cancer. She a has had a colonoscopy. The last colonoscopy was 09/06/21 - polyp found, to be repeated in 5 yrs. ? The patient does not exercise. She feels she is active at home. * ROS:?Annual School Adjustment Counselor Exam ROS:?Bowel habit changes?denies.?Bladder symptoms?denies.?Vaginal discharge, unusual?denies.?Vaginal itch or odor?denies.?weight or appetite changes?denies.?Chest pains, SOB?denies.?depression?denies.?Breast:?Denies?Breast lump.?Denies?Nipple discharge.?Hematology:?Denies?Swollen glands.?Skin:?Patient denies?changing moles.?Comments?gets yearly skin check.?Psychiatric:?Denies?Anxiety.? * Medical History:? * School Adjustment Counselor History:?/ Para?08/04.?Sexual activity?currently sexually active.?Last Pap Smear:?07/04/20 NIL, NEG HPV, 03/28/20 No Interpretation Possible, 03/2019, neg.?Mammogram:?09/24/22 > 75% density, 05/08/2021 > 75% density, 04/27/20 > 75% density, 07/21/17.?Abnormal Pap Smear:?no history of abnormal pap smears.?History of STD's:?none.?Menarche?11.?Colonoscopy?09/06/2021 WNL.?Gardasil:?has not had vaccine.?*Hep B Vac?2009.? * OB History:?Total pregnancies?.? # 1:?normal spontaneous vaginal delivery (), 01/19/96, Ivis, 6lb 8oz, no complications.? * Surgical History:?Cholecyste ctomy 2013R Breast Biopsy (benign) 2008L Shoulder surgery 05/2022 * Hospitalization/Major Diagno stic Procedure:?childbirth * Family History:?Mother: elaina sandhu 74 yrs, heart flutter.?Father: alive 74 yrs, estranged.?Spouse: alive 57 yrs, well.?StepFather: alive 73 yrs, well.? brother - Nash - at age 43 from melanoma Denies family history of breast, colon, uterine or ovarian cancers. * Social History:?Tobacco Use:?Tobacco Use/Smoking?Are you a?nonsmoker ???Sexual History:?Details of Sexual History?Are you sexually active??Yes ???Drugs/Alcohol:?Drugs?Have you used drugs other than those for medical reasons in the past 12 months??No ?Alcohol Screen (Audit-C)?Did you have a drink containing alcohol in the past year??Yes ?How often did you have a drink containing alcohol in the past year??2 to 3 times a week (3 points) ?How many drinks did you have on a typical day when you were drinking in the past year??1 or 2 drinks (0 point) ?How often did you have 6 or more drinks on one occasion in the past year??Never (0 point) ?Points?3 ?Interpretation?Positive ???Miscellaneous:?Children: yes, 1. ?Domestic violence: no. ?Home smoke detector use: yes, smoke detectors, carbon monoxide detector. ?Housing: owns a home. ?Living with: spouse. ?Marital status: , Christopher. ?Natural support system: yes. 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. ?Pets: none. ?Sexual abuse: no. ?Sexually active: yes, monogamous relationship. ?Verbal abuse: no. * Medications:?TakingLevothyro xine Sodium 112 MCG Tablet Orally Taking Levothyroxine Sodium 112 MCG Tablet Orally DiscontinuedLo Loestrin Fe 1 MG-10 MCG / 10 MCG Tablet 1 tablet Orally one active pill a day. Skip inactive pills Medication List reviewed and reconciled with the patientDiscontinued Lo Loestrin Fe 1 MG-10 MCG / 10 MCG Tablet 1 tablet Orally one active pill a day. Skip inactive pills Medication List reviewed and reconciled with the patient * Allergies:?Codeine: Vomiting - Side Effectsno[Allergies Verified] Objective: * Vitals:?Ht: 62 in, Wt:131lbs , BMI:23.96Index, BP:110/80mm Hg, Temp:97.3F. * Examination: ???General Examination: ?GENERAL APPEARANCE:?in no acute distress, well developed, well nourished, maternity floor supervisor present in room.?HEAD:?normocephalic, atraumatic.?NECK/THYROID:?neck supple, full range of motion, thyroid normal.?LYMPH NODES:?no axillary or supraclavicular adenopathy.?SKIN:? normal, good turgor, no rashes, no suspicious lesions.?BREASTS:? normal, no dimpling, no discharge, no drainage, no masses palpable bilaterally, nontender.?ABDOMEN:? soft, non-tender, non distended without masses or hepatosplenomegay.?RECTAL:?deferred at patient request.?BACK:? no costovertebral angle tenderness.?FEMALE GENITOURINARY:?Vulva without lesions or masses, vagina pink without abnormal discharge, lesions or masses, cervix appears normal and is not tender to palpation, uterus is normal size, mobile, nontender and anteverted, posterior uterine fullness detected - ?fibroid vs ovary vs retroflexed uterus?, ovaries are not palpable.?NEUROLOGIC:? alert and oriented, gait normal.?PSYCH:? alert, oriented, cognitive function intact, cooperative with exam, good eye contact, mood/affect full range, speech clear.? Assessment: * Assessment: 1.?Encounter for gynecologic al examination (general) (routine) without abnormal findings - Z01.419 (Primary)???2.?Encounter for screening mammogram for malignant neoplasm of breast - Z12.31???3.?Other benign neoplasm of uterus, unspecified - D26.9? ? Plan: * Treatment: 2.?Encounter for screening m ammogram for malignant neoplasm of breast?Imaging: MM Digital Screening Mammogram 3D 3.?Other benign neoplasm of uterus, unspecified?Imaging: ULTRASOUND: PELVIC W/TRANSVAGINAL Notes: She states her can get her a low or no-cost ultrasound where he works. Ultrasound is to rule out uterine fibroid or adnexal mass (there is a fullness palpable behind the uterus)?? * Procedure Codes:? * Follow Up:?1 Year (Reason: Y early School Adjustment Counselor Exam) * Images: Billing Information: * Visit Code:? 06029 Preventive Care Est Pt. Age 40-64. * Procedure Codes:? * Sign off status: Completed true * Provider:?RADHA TAMEZ MD Date:?2023 Generated for Low ureña/Giuliano/eTransmitting on:?09/10/2024 01:22 PM EST History and Physical Notes * HPI (History of Present Illness) Category Sub-Category Detail Notes Category Not es Constitutional Sujey is a 54yo with amenorrhea. She has been in state of good health since her last exam. She has the following concerns: none She has received the Moderna Covid-19 vaccine. Relationship status: for 31 years. She is sexually active. Sexual partner(s): male. She does not wish to have STI testing. Menses: absent; she actually stopped taking OCPs in 11/2023 - has had no bleeding since then. Contraception: none, is likely menopausal She does not report vaginal dryness. She does not have hot flashes/night sweats. The patient has never had an abnormal pap smear. Her most recent pap smear was 07/04/2020 - NIL, neg HR HPV. Next due for cotesting in 2024. She has not been diagnosed with breast cancer. She does not have a family history of breast cancer. Her last mammogram was 09/24/22 at [facility] - incomplete due to inadequate film of axilla due to lack of mobility of arm. She feels she's had one in the last year. She does not have a family history of colon cancer. She a has had a colonoscopy. The last colonoscopy was 09/06/21 - polyp found, to be repeated in 5 yrs. The patient does not exercise. She feels she is active at home. Examination Category Sub-Category Detail Notes Category Not es General Examination GENERAL APPEARANCE: in no ac clint distress, well developed, well nourished, maternity floor supervisor present in room HEAD: normocephalic, atrau matic NECK/THYROID: neck supple, full ra nge of motion, thyroid normal ABDOMEN: soft, non-tender, no n distended without masses or hepatosplenomegay NEUROLOGIC: alert and oriented, gait normal SKIN: normal, good turgor, no rashes, no suspicious lesions BACK: no costovertebral an gle tenderness BREASTS: normal, no dimpling, no discharge, no drainage, no masses palpable bilaterally, nontender LYMPH NODES: no axillary or supra clavicular adenopathy RECTAL: deferred at patient request PSYCH: alert, oriented, cog nitive function intact, cooperative with exam, good eye contact, mood/affect full range, speech clear FEMALE GENITOURINARY: Vulva without lesi ons or masses, vagina pink without abnormal discharge, lesions or masses, cervix appears normal and is not tender to palpation, uterus is normal size, mobile, nontender and anteverted, posterior uterine fullness detected - ?fibroid vs ovary vs retroflexed uterus?, ovaries are not palpable
--- OUTSIDE RECORDS SUMMARY | 2024-09-10 13:22 | XMS_ITS ---
Author Organization [facility] Address [address] [facility] [address] [place] [address] Care Team Providers Care Patient Care Representative Name Role Phone BECK TORRES, EMELIA Primary Care Provider Unav ailable RADHA TAMEZ Unavailable [phone] REASON FOR VISIT Bleeding, non-urgent Encounters Encounter Location Date Provider Diagnosis [facility] [address] [place] [address] 06/15/2024 RADHA TAMEZ Plan Of Treatment Next Appt Details Provider Name:RADHA Schaffer, 05/12/2025 09:00:00 AM, [address] [place] [address], [facility] [address], [place], [address], Progress Notes * SURI GLADYSADOB:[birth year] (54 yo F)Acc No.[id number]:06/15/2024 Patient:?GLADYS MCCORDA :1970???Age:54 Y???Sex:Female Address:[address] [place] [address], [address] * true * Date:? Generated for Low ureña/Giuliano/eTransmitting on:?09/10/2024 01:22 PM EST
--- OUTSIDE RECORDS SUMMARY | 2024-09-10 13:22 | XMS_ITS ---
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 Skip inactive pills for 84 days Active Social History Tobacco Use: Social History [...] Never (0 point) Points 3 Interpretation Positive Problems Problem Type SNOMED Code ICD Code Onset Dates Problem Status W/U Status Risk Notes Problem COVID-19 (723800581) COVID-19 (U07.1) Active confirmed Vital Signs Temperature 96.9 degrees Fahrenheit 05/01/20 23 Blood pressure systolic 102 mm Hg 05/01/20 23 Blood pressure diastolic 76 mm Hg 023 Height 62 in 05/01/2023 Weight 131 lbs 05/01/2023 BMI 23.96 kg/m2 05/01/2023 Encounters Encounter Location Date Provider Diagnosis Total [address] [place] [address] 05/01/2023 RADHA TAMEZ Encounter for gynecological examination (general) (routine) without abnormal findings Z01.419 ; Encounter for screening mammogram for malignant neoplasm of breast Z12.31 and Encounter for surveillance of contraceptive pills Z30.41 Assessments Encounter Date Diagnosis (ICD Code) Assessment Notes Treatment Notes Treatment Clinical Notes Section Notes 05/01/2023 Encounter for gynecological examination (general) (routine) without [...] to keep colon screening up to date. 05/01/2023 Encounter for screening mammogram for malignant neoplasm of breast (ICD-10 - Z12.31) 05/01/2023 Encounter for surveillance of contraceptive pills (ICD-10 - Z30.41) No contraindications to combined hormonal contraception use. Symptoms of thromboembolic events weree reviewed using the ACHES acronym. Plan Of Treatment Medication Medication Name Sig Start Date Stop Date Notes Lo Loestrin Fe 1 MG-10 MCG / 10 MCG 1 tablet Orally one active pill a day. Skip inactive pills for 84 days Treatment Notes Assessment Notes Encounter for gynecological [...] to keep colon screening up to date. Encounter for surveillance o f contraceptive pills No contraindications to combined hormona l contraception use. Symptoms of thromboembolic events weree reviewed using the ACHES acronym. 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 She did have 3 cycles when she came off OCPs last year, so was restarted on them. ? She has been in state of good health since her last exam. She has the following concerns: post void dribbling (no loss with sneezing, coughing) - not bothersome enough to warrant a referral to urology. ? She has received the Moderna Covid-19 vaccine. ? Relationship status: for 30 years. Going to visit friends in [place] this weekend to celebrate. Going to [facility] in August. She is sexually active. Sexual partner(s): male. She does not wish to have STI testing. ? Menses: absent ? Contraception: OCPs continuously - will attempt another cessation of pills after her trip to [facility] ? She does not report vaginal dryness. She does not have hot flashes/night sweats. ? The patient has not ever had an abnormal pap smear. Her most recent pap smear was 07/04/2020 - NIL, neg HR HPV. Next due for cotesting in 2024. ? She has not been diagnosed with breast cancer. She does not have a family history of breast cancer. Her last mammogram was 09/24/22 - incomplete due to inadequate film of axilla due to lack of mobility of arm. ? She does not have a family history of colon cancer. She a has had a colonoscopy. The last colonoscopy was 09/06/21 - polyp found, to be repeated in 5 yrs. ? The patient does exercise. She exercises by walking a couple of times per week. * ROS:?Annual Manager Business Intelligence Exam ROS:?Bowel habit changes?denies.?Bladder symptoms? admits,?dripping after voiding concludes.?Vaginal discharge, unusual?denies.?Vaginal itch or odor?denies.?weight or appetite changes?denies.?Chest pains, SOB?denies.?depression?denies.?Breast:?Denies?Breast lump.?Denies?Nipple discharge.?Hematology:?Denies?Swollen glands.?Skin:?Patient denies?changing moles.?Psychiatric:?Admits?Anxiety,?has a prescription for meds if needed, rarely uses; does use breathing.? * Medical History:? * Manager Business Intelligence History:?/ Para?08/04.?Sexual activity?currently sexually active.?Last Pap Smear:?07/04/20 NIL, NEG HPV, 03/28/20 No Interpretation Possible, 03/2019, neg.?Mammogram:?09/24/22 > 75% density, 05/08/2021 > 75% density, 04/27/20 > 75% density, 07/21/17.?Abnormal Pap Smear:?no history of abnormal pap smears.?LMP and menses?Cont OCP.?History of STD's:?none.? Control:?LO Loestrin Fe 1mg.?Menarche?11.?Colonoscopy? 09/06/2021 WNL.?Gardasil:?has not had vaccine.?*Hep B Vac?2009.? * OB History:?Total pregnancies?.? # 1:?normal spontaneous vaginal delivery (), 01/19/96, Ivis, 6lb 8oz, no complications.? * Surgical History:?Cholecyste ctomy 2013R Breast Biopsy (benign) 2009L Shoulder surgery 05/2022 * Hospitalization/Major Diagno stic Procedure:?childbirth * Family History:?Mother: elaina e 73 yrs, heart flutter.?Father: alive 73 yrs, estranged.?Spouse: alive 56 yrs, well.?StepFather: alive 72 yrs, well.? brother - Nash - at [...] (0 point) ?Points?3 ?Interpretation?Positive ???Miscellaneous:?Children: yes, 1. ?no Domestic violence. ?Home smoke detector use: yes, smoke detectors, carbon monoxide detector. ?Housing: owns a home. ?Living with: spouse. ?Marital status: , Christopher. ?Natural support system: yes. 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 ?Pets: none. ?no Sexual abuse. ?Sexually active: yes, monogamous relationship. ?no Verbal abuse. * Medications:?TakingLevothyro xine Sodium 112 MCG Tablet Orally Lo Loestrin Fe 1 MG-10 MCG / 10 MCG Tablet 1 tablet Orally one active pill a day. Skip inactive pillsMedication List reviewed and reconciled with the patientTaking Levothyroxine Sodium 112 MCG Tablet Orally Taking Lo Loestrin Fe 1 MG-10 MCG / 10 MCG Tablet 1 tablet Orally one active pill a day. Skip inactive pillsMedication List reviewed and reconciled with the patient * Allergies:?Codeine: Vomiting - Side Effectsno[Allergies Verified] Objective: * Vitals:?Ht: 62 in, Wt:131 lb s, BMI:23.96 Index, BP:102/76 mm Hg, Temp:96.9 F. * Examination: ???General Examination: ?GENERAL APPEARANCE:?in no acute distress, well developed, well nourished, well testing operator present in room.?HEAD:?normocephalic, atraumatic.?NECK/THYROID:?neck supple, full range of motion, thyroid normal.?LYMPH NODES:?no axillary or supraclavicular adenopathy.?SKIN:? normal, good turgor, no rashes, no suspicious lesions.?BREASTS:? normal, no dimpling, no discharge, no drainage, no masses palpable bilaterally, nontender.?ABDOMEN:? soft, non-tender, non distended without masses or hepatosplenomegay.?RECTAL:? normal tone, no masses palpable.?BACK:? no costovertebral angle tenderness.?FEMALE GENITOURINARY:?Vulva without lesions or masses, vagina pink without abnormal discharge, lesions or masses, cervix appears normal and is not tender to palpation, uterus is normal size, mobile, nontender and anteverted, ovaries are not palpable.?NEUROLOGIC:? alert and oriented, gait normal.?PSYCH:? alert, oriented, cognitive function intact, cooperative with exam, good eye contact, mood/affect full range, speech clear.? Assessment: * Assessment: 1.?Encounter for gynecologic al examination (general) (routine) without abnormal findings - Z01.419 (Primary)?2.?Encounter for screening mammogram for malignant neoplasm of breast - Z12.31?3.?Encounter for surveillance of contraceptive pills - Z30.41? Plan: * Treatment: 2.?Encounter for screening m ammogram for malignant neoplasm of breast?Imaging: MM Digital Screening Mammogram 3D 3.?Encounter for surveillanc e of contraceptive pills? Refill Lo Loestrin Fe Tablet, 1 MG-10 MCG / 10 MCG, 1 tablet, Orally, one active pill a day. Skip inactive pills, 84 days, 4 Pack, Refills 4.?? Notes: No contraindications to combined hormonal contraception use. Symptoms of thromboembolic events weree reviewed using the ACHES acronym.?? * Procedure Codes:? * Preventive Medicine:?There are risks to being on estrogen-containing contraception (pills, patch, vaginal ring.) The risks are low for healthy people. The risks increase with the presence of high blood pressure, diabetes, migraines with aura, a family history of clotting disorders and if you are a smoker over the age of 35. It appears to me that you have none of these risk factors. Despite not having risk factors, your risk is not zero. The biggest and scariest risk is the formation of blood clots in your blood vessels, which can lead to heart attacks, stroke, pulmonary embolism and . I want you to be aware of the warning signs using the ACHES acronym. You should call immediately with severe Abdominal pain, Chest pain, severe Headaches, Eye changes, or Severe leg cramps. ~~~~~~~~~~~~~ STRENGTH TRAINING ~~~~~~~~~~~~~ Anyone, at any fitness level, can and should add strength training to their routine. Strength training is an important part of an overall fitness program, mainly because lean muscle mass naturally diminishes with age. You'll increase the percentage of fat in your body if you don't do anything to replace the lean muscle you lose over time. Strength training can help you preserve and enhance your muscle mass (at any age!), develop strong bones and reduce the risk of osteoporosis, manage or lose weight and increase your metabolism to help you burn more calories. It will also improve your ability to do everyday activities and reduce symptoms of chronic conditions such as arthritis, back pain, obesity, heart disease and diabetes. Some research suggests that regular strength training may help improve thinking and learning skills. Don't be intimidated. You can strength train at home or in the gym, and you have plenty of options. You can rely on your body weight and do many exercises with little or no equipment, like pushups, pullups, planks and leg squats. Or you can go pro and choose to go with resistance tubing (a lightweight tubing that provides resistance when stretched), free weights like barbells and dumbbells, or weight machines at the gym. ~~~~~~~~~~~~~~~~~~~~~~~~~~~~~~~~~~~~~~~~~~~ SARCOPENIA AND THE IMPORTANCE OF STRENGTH TRAINING EXERCISE ~~~~~~~~~~~~~~~~~~~~~~~~~~~~~~~~~~~~~~~~~~~ What is sarcopenia? ~~~~~~~~~~~~ Sarcopenia refers to the process of losing skeletal muscle mass and strength. 'Sarco' is the Welsh word referring to flesh, and 'penia' means a reduction in amount. Thus, the word describes a progressive weakening of the body caused by a 'change in body compensation in favor of fat and at the expense of muscle.' Everyone, beginning around age 25, starts to lose muscle mass, though the actual symptoms of this loss do not usually begin showing up until around the age of 40 or so. The process begins really picking up speed after the age of 65. In fact, around the age of 40, most women will lose almost a half-pound of muscle every year and replace it with fat. The result of this gradual loss of muscle is an insidious weakening of the body, loss of balance, loss of confidence upon walking, and a reduced ability to recover from near falls. As we lose strength, we become more inactive. This makes sense, because if we have less muscle, it takes much more effort to move, and we fatigue more easily. But also, with loss of strength comes loss of balance and stability. The fear of falling keeps many people sedentary, and a sedentary lifestyle opens the door for chronic illness. ~~~~~~~~~~~~~~ Take back your muscle ~~~~~~~~~~~~~~ And now for great news: you can delay sarcopenia and even reverse it. How? By lifting weights. Even though you cannot grow new muscles cells to replace the ones you have already lost, you can develop the ones that you have left. In fact, you can become stronger than you ever have in your life by simply beginning a strength training program. No matter how old you are, it is not too late to start. Even patients in nursing homes have seen transformation. After strength training, bedridden patients were able to begin walking with walkers, walker-dependent patients graduated to canes, and so on. And no matter how young you are, it is not too early to start! By starting early, you can significantly delay the effects of sarcopenia. As you begin lifting weights, you will notice a transformation in your body. You will have more energy, you will perform everyday tasks with noticeably more ease and your clothes will begin sagging on you, because you will be building muscle and burning up the fat deposits. You will have greater balance and more confidence. And perhaps best of all is the insurance policy you pay premiums on every time you choose to lift, because you are laying a strong, solid foundation for your later years. You are laying up health, independence and the ability to live well, not just long. DON'T LET ANOTHER DAY GO BY THAT YOU ARE LOSING MUSCLE. Take it back, and get ready to feel better than you ever have!. * Follow Up:?1 Year (Reason: Y early Manager Business Intelligence Exam) * Images: Billing Information: * Visit Code:? 36684 Preventive Care Est Pt. Age 40-64. * Procedure Codes:? 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 She did have 3 cycles when she came off OCPs last year, so was restarted on them. She has been in state of good health since her last exam. She has the following concerns: post void dribbling (no loss with sneezing, coughing) - not bothersome enough to warrant a referral to urology. She has received the Moderna Covid-19 vaccine. Relationship status: for 30 years. Going to visit friends in [place] this weekend to celebrate. Going to [facility] in August. She is sexually active. Sexual partner(s): male. She does not wish to have STI testing. Menses: absent Contraception: OCPs continuously - will attempt another cessation of pills after her trip to [facility] She does not report vaginal dryness. She does not have hot flashes/night sweats. The patient has not ever had an abnormal pap smear. Her most recent pap smear was 07/04/2020 - NIL, neg HR HPV. Next due for cotesting in 2024. She has not been diagnosed with breast cancer. She does not have a family history of breast cancer. Her last mammogram was 09/24/22 - incomplete due to inadequate film of axilla due to lack of mobility of arm. She does not have a family history of colon cancer. She a has had a colonoscopy. The last colonoscopy was 09/06/21 - polyp found, to be repeated in 5 yrs. The patient does exercise. She exercises by walking a couple of times per week. Examination Category Sub-Category Detail Notes Category Not es General Examination GENERAL APPEARANCE: in no ac clint distress, well developed, well nourished, well testing operator present in room HEAD: normocephalic, atrau matic [...] no axillary or supra clavicular adenopathy RECTAL: normal tone, no mass es palpable PSYCH: alert, oriented, cog nitive function intact, cooperative with exam, good eye contact, mood/affect full range, speech clear FEMALE GENITOURINARY: Vulva without lesi ons or masses, vagina pink without abnormal discharge, lesions or masses, cervix appears normal and is not tender to palpation, uterus is normal size, mobile, nontender and anteverted, ovaries are not palpable
--- OUTSIDE RECORDS SUMMARY | 2024-09-10 13:22 | XMS_ITS | Clinical Summary ---
Author Organization [facility] Address [address] [place] [address] Phone Care Team Providers Care Emissions Engineer Name Role Phone Unavailable Primary Care Provider Unavailabl e Surgical History Surgery Date Site/Laterality Comments OTHER SURGICAL HISTORY PROCEDURE: ---- OTHER ----; COMMENT: breast biopsy CHOLECYSTECTOMY PROCEDURE: HISTORICAL CHOLECYSTECTOMY BREAST BIOPSY 2008 Right PROCEDURE: BX BREAST; PERC NEEDLE CORE W/IMAG GUID; COMMENT: neg Medical History Medical History Date Comments Hypothyroid DX:Hypothyroid Vitamin D deficiency DX:Vitamin D deficiency Family History Medical History Relation Name Comments Other: skin ca Brother 1 melanoma Other: unknown Father Relation Name Status Comments Brother 1 Brother 2 Alive MELANOMA Father Alive ? Maternal Grandfather (Age early 60's) Maternal Grandmother Alive Mother Alive SVT Paternal Grandfather Paternal Grandmother Social History Tobacco Use Types Packs/Day Years Used Date Smoking Tobacco: Never Smokeless Tobacco: Never Alcohol Use Standard Drinks/Week Comments Yes 0.8 (1 standard drink = 0.6 oz p ure alcohol) Sex and Gender Information Value Date Recorded Sex Assigned at Not on file Gender Identity Not on file Sexual Orientation Not on file Obstetrics History Plan of Treatment Health Maintenance Due Date Last Done Comments Cervical Cancer Screening: Pap Smear 1990 Hepatitis B Vaccines (2 of 3 - 19+ 3-dose series) 07/25/2010 06/27/2010 Zoster Vaccines (1 of 2) 2019 DTaP,Tdap,and Td Vaccines (2 - Td or Tdap) 06/06/2020 06/06/2010 Colorectal Cancer Screening: Colonoscopy 07/13/2022 Depression Screening 07/13/2022 HIV Screening 07/13/2022 Hepatitis C Screening 07/13/2022 Social Influencers of Health Screening 07/13/2022 COVID-19 Vaccine (2023- season) 2024 Influenza Vaccine (#1) 2024 Breast Cancer Screening 06/01/2026 06/01/20, 09/24/2022, 05/08/2021, Additional history exists HIB Vaccines Aged Out No longer eligi ble based on patient's age to complete this topic HPV Vaccines Aged Out No longer eligi ble based on patient's age to complete this topic Hepatitis A Vaccines Aged Out No long er eligible based on patient's age to complete this topic IPV Vaccines Aged Out No longer eligi ble based on patient's age to complete this topic MMR Vaccines Aged Out No longer eligi ble based on patient's age to complete this topic Meningococcal ACWY Vaccine Aged Out N o longer eligible based on patient's age to complete this topic Pneumococcal Vaccine: Pediatrics (0 to 5 Years) and At-Risk Patients (6 to 64 Years) Aged Out No longer eligible based on patient's age to complete this topic RSV Immunization Patients Under 20 months Aged Out No longer eligible based on patient's age to complete this topic Varicella Vaccines Aged Out No longer eligible based on patient's age to complete this topic Procedures Procedure Name Priority Date/Time Associated Diagnosis Comments ASHLEY SCREENING DIGITAL Routine 06/01/2024 3:26 PM EDT from Last 3 Months or Most Recently Relevant to Health Maintenance Results * ASHLEY SCREENING DIGITAL (06/01/2024 3:26 PM EDT) Anatomical Region Laterality Modality Mammography 06/01/2024 1:57 PM EDT Narrative 06/01/2024 3:26 PM EDT [facility] Diagnostic Imaging Department [address] [place] [id number] Patient: ??SUJEY MCCORD ?/Age/Sex: 1970 - 54 - F Unit#: ??[id number] ? Location/Status: ??SPDIMAM/REG CLI ? Mnemonic/Ordering Site: ??[facility] Ordering Physician: ??SEVEN SOLARES MD Ashley Screening Digital - 06/01/24 - 1421 Report Status:Signed EXAM: ??SCREENING MAMMOGRAPHY, BILATERAL HISTORY: ??SCREENING. ??No additional history. COMPARISON: ??09/24/2022, 05/08/2021, 04/27/2020, 07/21/2017 TECHNIQUE: Synthesized CC and MLO projections of each breast. ??Tomosynthesis of each breast in the CC and MLO projections. ADDITIONAL IMAGING: None Computer-aided detection was employed with the iCAD ??profound AI 3-D. TISSUE DENSITY: The breasts are heterogeneously dense, which may obscure small masses. (BI-RADS category C) FINDINGS: RIGHT BREAST: No suspicious mass. No suspicious calcification. No distortion. ?? No additional suspicious right breast findings No suspicious change in the region of the biopsy site marker. LEFT BREAST: No suspicious mass. No suspicious calcification. No distortion. ?? No additional suspicious left breast findings IMPRESSION: No mammographic evidence of malignancy. No suspicious interval change. A negative mammogram in the presence of a clinically suspicious palpable abnormality does not preclude the possibility of malignancy or alter the indications for biopsy. ASSESSMENT: BI-RADS 2: BENIGN RECOMMENDATION(S): 1: Routine screening mammogram BILATERAL in 1 year. Dictating Physician: ??Suzanne UMANA BRET MD Electronically Signed by: ??Suzanne UMANA BRET MD Dic Date/Time: ??06/01/24 1455 Sign date/Time: ??06/01/24 1526 Procedure Note Iraj Umana MD - 06/05/2024 [facility] Diagnostic Imaging Department [address] [place] [id number] Patient: SURISUJEY./Age/Sex: 1970 - 54 - F Unit#: [id number] Location/Status: SPDIMAM/REG CLI Mnemonic/Ordering Site: [facility] Ordering Physician: SEVEN SOLARES MD Ashley Screening Digital - 06/01/24 - 1421 Report Status:Signed EXAM: SCREENING MAMMOGRAPHY, BILATERAL HISTORY: SCREENING. No additional history. COMPARISON: 09/24/2022, 05/08/2021, 04/27/2020, 07/21/2017 TECHNIQUE: Synthesized CC and MLO projections of each breast.Tomosynthesis of each breast in the CC and MLO projections. ADDITIONAL IMAGING: None Computer-aided detection was employed with the iCAD profound AI 3-D. TISSUE DENSITY: The breasts are heterogeneously dense, which may obscuresmall masses. (BI-RADS category C) FINDINGS: RIGHT BREAST: No suspicious mass. No suspicious calcification. No distortion. Noadditional suspicious right breast findings No suspicious change in the region of the biopsy site marker. LEFT BREAST: No suspicious mass. No suspicious calcification. No distortion. Noadditional suspicious left breast findings IMPRESSION: No mammographic evidence of malignancy. No suspicious interval change. A negative mammogram in the presence of a clinically suspicious palpable abnormality does not preclude the possibility of malignancy or alter the indications for biopsy. ASSESSMENT: BI-RADS 2: BENIGN RECOMMENDATION(S): 1: Routine screening mammogram BILATERAL in 1 year. Dictating Physician: Suzanne UMANA BRET MD Electronically Signed by: Suzanne UMANA BRET MD Dic Date/Time: 06/01/24 1455 Sign date/Time: 06/01/24 1526 Seven Solares MD IMG BI PROCEDURES from Last 3 Months or Most Recently Relevant to Health Maintenance
--- OUTSIDE RECORDS SUMMARY | 2024-09-10 13:22 | XMS_ITS | Patient Health Record ---
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 Name Role Phone EMELIA SOLARES MD Primary Care Provider RADHA Gar Unavailable [phone] Allergies Allergen (clinical drug ingredient) Drug/Non Drug Allergy documented on EMR Reaction Allergy Type Onset Date Status codeine Codeine Vomiting Drug Allergy Active Reason For Referral No Information Medications Medication SIG (Take, Route, Frequency, Duration) [...] Problem Status W/U Status Risk Notes Problem Hypothyroidism (04420495) Hypothyroidism, unspecified (E03.9) Active confirmed Problem Hemorrhage of colon due to diverticulosis (486793303834120) Diverticulosis of intestine, part unspecified, without perforation or abscess with bleeding (K57.91) Active confirmed Problem Endometriosis of uterus (38814866) Endometriosis of uterus (N80.0) Active confirmed Problem Perimenopausal disorder (443646380) Other specified menopausal and perimenopausal disorders (N95.8) Active confirmed Problem History of gastrointestinal disease (155774683) Personal history of other diseases of the digestive system (Z87.19) Active confirmed Problem Menopause (106826123) Menopausal and female climacteric states (N95.1) Active confirmed Problem COVID-19 (053779031) COVID-19 (U07.1) Active confirmed Vital Signs Temperature 97.3 degrees Fahrenheit 05/04/2024 Blood pressure diastolic 80 mm Hg 05/04/2024 Height 62 in 05/04/2024 Blood pressure systolic 110 mm Hg 05/04/2024 Weight 131 lbs 05/04/2024 BMI 23.96 kg/m2 05/04/2024 Encounters Encounter Location Date Provider Diagnosis [facility] [address] [place] [address] 05/04/2024 RADHA TAMEZ Encounter for gynecological examination (general) (routine) without abnormal findings Z01.419 ; Encounter for screening mammogram for malignant neoplasm of breast Z12.31 and Other benign neoplasm of uterus, unspecified D26.9 [facility] [address] [place] [address] 06/15/2024 RADHA TAMEZ Assessments Encounter Date Diagnosis (ICD Code) Assessment [...] palpable behind the uterus) Plan Of Treatment Pending Test Test Name Order Date FSH and LH 04/10/2021 ESTRADIOL 04/10/2021 ESTRADIOL 03/28/2020 ESTRADIOL 04/23/2022 FSH 04/23/2022 FSH 03/28/2020 LH 03/28/2020 ULTRASOUND: PELVIC W/TRANSVAGINAL 2023 MM Digital Screening Mammogram 3D 2021 MM Digital Screening Mammogram 3D 2020 MM Digital Screening Mammogram 3D 2022 MM Digital Screening Mammogram 3D 2023 Next Appt Details Provider Name:RADHA Stormy Schaffer, 05/12/2025 09:00:00 AM, [address], [address], [place], [address], Insurance Providers Payer Name Payer Address Payer Phone Subscriber Number Group Number Insured Name Patient Relationship to Insured Coverage Start Date Coverage End Date [employer] [place] [address] [place] [address] [id number] GIDEON BOLDEN Spouse - patient is the spouse of the insured Medical (General) History Medical History History ICD Code Adenomyosis Hypothyroidism, unspecified E03.9 Endometriosis of uterus N80.0 Personal history of other diseases of th e digestive system Z87.19 Other specified menopausal and perimenop ausal disorders N95.8 Diverticulosis of intestine, part unspecified, without perforation or abscess with bleeding K57.91 COVID-19 U07.1 Surgical History Surgery Date(Month/Year) Cholecystectomy 2012 R Breast Biopsy (benign) 2008 L Shoulder surgery 05/2022 Hospitalization History Reason Date(Month/Year) childbirth
== END 2024-09-10 13:06 | disposition home or self-care (01) ==
LOC: HO.HMCC 12:42
PROVIDERS: PCP Internal Medicine; Visit Provider Internal Medicine
DX: R10.32 Left lower quadrant pain (principal); E03.9 Hypothyroidism, unspecified

== ENCOUNTER → 2024-09-10 12:42 | Outpatient (BNVA) | payer BC, SELFPAY | PROVIDERS: PCP Internal Medicine; Visit Provider Internal Medicine | DX: R10.32 Left lower quadrant pain (principal); E03.9 Hypothyroidism, unspecified | CPT/HCPCS: 96127 ==

== ENCOUNTER 2024-09-17 08:16 | Outpatient (REF) | payer BC, SELFPAY ==
--- OUTSIDE RECORDS SUMMARY | 2024-09-17 08:24 | XMS_ITS ---
Author Organization [facility] Address [address] [place] [address] Care Team Providers Care Manager Landscape Name Role Phone BECK TORRES, EMELIA Primary Care Provider Unav ailable RADHA TAMEZ Unavailable [phone] REASON FOR VISIT Bleeding, non-urgent Encounters Encounter Location Date Provider Diagnosis [facility] [address] [place] [address] 06/15/2024 RADHA TAMEZ Plan Of Treatment Next Appt Details Provider Name:RADHA Schaffer, 05/12/2025 09:00:00 AM, [address] [place] [address], [facility] [address], [place], [address], Progress Notes * SURI GLADYSADOB:[birth year] (54 yo F)Acc No.[id number]:06/15/2024 Patient:?MICHAEL MCCORDDIA :1970???Age:54 Y???Sex:Female Address:[address] [place] [address], [address] * true * Date:? Generated for Low ureña/Giuliano/eTransmitting on:?09/17/2024 08:23 AM EST
--- OUTSIDE RECORDS SUMMARY | 2024-09-17 08:24 | XMS_ITS | Clinical Summary ---
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 Name Role Phone Unavailable Primary Care Provider [...] drink = 0.6 oz p ure alcohol) Comments Unknown Sex and Gender Information Value Date Recorded Sex Assigned at Not on file Legal Sex Female 5:36 PM EST Gender Identity Not on file Sexual Orientation Not on file Obstetrics History Plan of Treatment Health Maintenance Due Date Last Done Comments Cervical Cancer Screening: Pap Smear 1990 Hepatitis B Vaccines (2 of 3 - 19+ 3-dose series) 07/25/2010 06/27/2010 Pneumococcal Vaccine: 50+ Years (1 of 1 - PCV) 2019 Zoster Vaccines (1 of 2) 2019 DTaP,Tdap,and Td Vaccines (2 - Td or Tdap) 06/06/2020 06/06/2010 Colorectal Cancer Screening: Colonoscopy 07/13/2022 Depression Screening 07/13/2022 HIV Screening 07/13/2022 Hepatitis C Screening 07/13/2022 Social Influencers of Health Screening 07/13/2022 COVID-19 Vaccine ( season) 2024 Influenza Vaccine (#1) 2024 Breast Cancer Screening 06/01/2026 06/01/20 24, 09/24/2022, 05/08/2021, Additional history exists HIB Vaccines [...] patient's age to complete this topic Meningococcal B Vacine Aged Out No lo nger eligible based on patient's age to complete [...] PM EDT Narrative 06/01/2024 3:26 PM EDT [facility] Diagnostic Imaging Department [address] [place] [address] Patient: ??SUJEY MCCORD ?/Age/Sex: 1970 - 54 - F Unit#: ??[id number] ? Location/Status: ??SPDIMAM/REG CLI ? Mnemonic/Ordering Site: [...] Procedure Note Iraj Umana MD - 06/05/2024 [facility] Diagnostic Imaging Department [address] [place] [id number] Patient: MICHAEL MCCORDDIA /Age/Sex: 1970 - 54 - F Unit#: [id number] Location/Status: SPDIMA/REG CLI Mnemonic/Ordering Site: [facility] Ordering Physician: SEVEN SOLARES MD Ashley Screening Digital - 06/01/24 - 1771 Report Status:Signed EXAM: SCREENING MAMMOGRAPHY, BILATERAL HISTORY: SCREENING. No additional history. COMPARISON: 09/24/2022, 05/08/2021, 04/27/2020, 07/21/2017 TECHNIQUE: Synthesized CC and MLO projections of each breast.Tomosynthesis of each breast in the CC and MLO projections. ADDITIONAL IMAGING: None Computer-aided detection was employed with the [employer] AI 3-D. TISSUE DENSITY: The breasts are [...] Date/Time: 06/01/24 1455 Sign date/Time: 06/01/24 1526 us Seven Solares MD IMG BI PROCEDURES Final Res ult from Last 3 Months or Most Recently Relevant to Health Maintenance
--- OUTSIDE RECORDS SUMMARY | 2024-09-17 08:24 | XMS_ITS | Data Portability ---
Author Organization [facility], Main Office Address [address] [facility] [address] [place] [id number] Care Team Providers Care Martial Arts Instructor Name Role Phone NEVILLE KEITH Primary Care Provider KINGSTON BAUTISTA Neuropsychologist [phone] KINGSTON BAUTISTA Rotational Moulding Operator Assessment Encounter Date Assessment Date Assessment LastModified by Organization Details LastModified Time 09/26/2016 09/26/2016 Presents for new patient PE with multiple complaints as below. PT , RICE, NSAIDS, to return in 1 week for possible elbow injection with Dr. Figueroa. [email or web address] Not available 09/26/2016 10:23:32 Plan of Treatment Reminders Order Date Submit Date Provider Last Modified By Organization Details Last Modified Time Details Appointments None record ed. Lab TSH, serum or plasma 2017 018 [facility], [address], [place], [address], 8 16:47:20 vitami n D, 25-hyd leonard, total, serum 2017 018 [facility], [address], [place], [address], 8 17:24:40 CBC w/ auto diff 2017 018 [facility], [address], [place], [address], 8 14:11:13 BMP, serum or plasma 2017 018 [facility], [address], [place], [address], 8 16:37:29 lipid panel, serum 2016 017 [facility], [address], [place], [place], [address], 7 14:58:34 CMP, serum or plasma 2016 017 [facility], [address], [place], [place], [address], 7 14:58:33 vitami n D, 25-hyd leonard, total, serum 2016 017 [facility], [address], [place], [place], [address], 7 23:06:52 CBC w/ auto diff 2016 017 [facility], [address], [place], [address], 7 14:23:51 TSH, serum or plasma 2016 017 [facility], [address], [place], [place], [address], 7 15:07:47 T4, free, serum 2016 017 [facility], [address], [place], [address], 7 15:07:46 Referral physic al therap ist referr al - left hip pain, hx bursit is. 2016 017 [facility], [address] [place] [address], [address], 7 11:48:01 physic al therap y should er referr al - hx left should er disloc ations X 2, feelin g left should er instab ility, worse with specif ic moveme nts, needs streng thenin g 2016 017 [facility], [address] [place] [address], [address], 7 11:48:00 physic al therap ist referr al - right elbow latera l epicon dyliti s, pain, tender ness 2016 017 [facility], [address] [place] [address], [address], 7 11:48:02 Procedures cerume n remova l (PROC) 2017 018 JASMINA In-Office Order, Internal Use Only DO Not Attach Compendium DO Not Attach Compendium, Do Not Delete/merge, [id number] 8 09:38:11 Surgeries None record ed. Imaging None record ed. Medication Orders meloxi cam 7.5 mg tablet 2016 017 [id number], [address], [place], [id number], 8 08:53:03 Patient TargetsNo targets recorded. Patient Instructions Encounter Date Encounter Id Patient Instructions Last Modified By Organization Details Last Modified Time 09/26/2016 [id number] shoulder stretches: exercises [email or web address] Not available 09/26/2016 10:03:26 shoulder dislocation: rehab exercises [email or web address] Not available 09/26/2016 10:03:27 tennis elbow: exercises [email or web address] Not available 09/26/2016 10:03:27 Call or return for worsening or concerns. [email or web address] Not available 09/26/2016 09:36:06 I have reviewed the note and agree with the assessment and plan of care. Medications (OTC, herbal therapies, supplements) reviewed and reconciled with patient and or caregiver, including potential side effects, drug interactions, instructions, and the consequences of not taking medication. Reviewed potential barriers to medication adherence, such as side effects from medication or cost of medication. [email or web address] Not available 09/26/2016 12:56:26 10/02/2016 [id number] tennis elbow: care instructions [email or web address] Not available 10/02/2016 11:04:44 11/11/2017 [id number] call or return for worsening or concerns. [email or web address] Not available 11/11/2017 09:17:22 I have reviewed the note and agree with the assessment and plan of care. [email or web address] Not available 11/11/2017 09:56:19 Reason for Referral hx left shoulder dislocation s X 2, feeling left shoulder instability, worse with specific movements, needs strengthening Referring Physician: Neville Keith [facility], Encounter Date: 09/26/2016 left hip pain, hx bursitis. Referring Physician: Neville Keith [facility], Encounter Date: 09/26/2016 right elbow lateral epicondy litis, pain, tenderness Referring Physician: Neville Keith [facility], Encounter Date: 09/26/2016 Results Created Date Observation Date Name Description Value Unit Range Abnormal Flag Note LastModifiedBy Organization Detail LastModifiedTime 09/26/19 17 09/26/2016 CBC w/ auto diff WBC 6.6 K/mm3 (4.0-1 1.0) Not Available [facility] [address] [place], [address], 09/26/2016 14:23:51 09/26/19 17 09/26/2016 CBC w/ auto diff RBC 4.79 M/mm3 (4.20- 5.40) Not Available [facility] [address] [place], [address], 09/26/2016 14:23:51 09/26/19 17 09/26/2016 CBC w/ auto diff HGB 13.9 gm/dL (12.0- 16.0) Not Available [facility] [address] [place], [address], 09/26/2016 14:23:51 09/26/19 17 09/26/2016 CBC w/ auto diff HCT 43.1 % (37.0- 47.0) Not Available [facility] [address] [place], [address], 09/26/2016 14:23:51 09/26/19 17 09/26/2016 CBC w/ auto diff MCV 90.0 fL (80.0- 100.0) Not Available [facility] [address] [place], [address], 09/26/2016 14:23:51 09/26/19 17 09/26/2016 CBC w/ auto diff MCH 29.0 pg (27.0- 34.0) Not Available [facility] [address] [place], [address], 09/26/2016 14:23:51 09/26/19 17 09/26/2016 CBC w/ auto diff MCHC 32.3 g/dL (33.0- 37.0) low Not Available [facility] [address] [place], [address], 09/26/2016 14:23:51 09/26/19 17 09/26/2016 CBC w/ auto diff plt 283 K/mm3 (150-4 60) Not Available [facility] [address] [place], [address], 09/26/2016 14:23:51 09/26/19 17 09/26/2016 CBC w/ auto diff RDW-SD 42.2 fL (<47.0 ) Not Available [facility] [address] [place], [address], 09/26/2016 14:23:51 09/26/19 17 09/26/2016 CBC w/ auto diff MPV 11.0 fL (9.4-1 2.4) Not Available [facility] [address] [place], [address], 09/26/2016 14:23:51 09/26/19 17 09/26/2016 CBC w/ auto diff automated NRBC 0.0 #/100 _WBC' s Not Available [facility] [address] [place], [address], 09/26/2016 14:23:51 09/26/19 17 09/26/2016 CBC w/ auto diff abs. NRBC 0.0 K/mm3 Not Available [facility] [address] [place], [address], 09/26/2016 14:23:51 09/26/19 17 09/26/2016 CBC w/ auto diff neut # 3.9 K/mm3 (1.3-7 .0) Not Available [facility] [address] [place], [address], 09/26/2016 14:23:51 09/26/19 17 09/26/2016 CBC w/ auto diff lymph # 1.8 K/mm3 (0.8-3 .1) Not Available [facility] [address] [place], [address], 09/26/2016 14:23:51 09/26/19 17 09/26/2016 CBC w/ auto diff mono# 0.6 K/mm3 (0.4-0 .9) Not Available [facility] [address] [place], [address], 09/26/2016 14:23:51 09/26/19 17 09/26/2016 CBC w/ auto diff eo # 0.1 K/mm3 (0.0-0 .4) Not Available [facility] [address] [place], [address], 09/26/2016 14:23:51 09/26/19 17 09/26/2016 CBC w/ auto diff baso # 0.1 K/mm3 (0.0-0 .1) Not Available [facility] [address] [place], [address], 09/26/2016 14:23:51 09/26/19 17 09/26/2016 CBC w/ auto diff abs. imm gran 0.1 K/mm3 Not Available [facility] [address] [place], [address], 09/26/2016 14:23:51 09/26/19 17 09/26/2016 CBC w/ auto diff neut 59.5 % (44-76 ) Not Available [facility] [address] [place], [address], 09/26/2016 14:23:51 09/26/19 17 09/26/2016 CBC w/ auto diff lymph 27.6 % (15-43 ) Not Available [facility] [address] [place], [address], 09/26/2016 14:23:51 09/26/19 17 09/26/2016 CBC w/ auto diff monocyte 9.7 % (4.5-1 0.5) Not Available [facility] [address] [place], [address], 09/26/2016 14:23:51 09/26/19 17 09/26/2016 CBC w/ auto diff eo 1.2 % (0-6) Not Available [facility] [address] [place], [address], 09/26/2016 14:23:51 09/26/19 17 09/26/2016 CBC w/ auto diff baso 1.1 % (0-2) Not Available [facility] [address] [place], [address], 09/26/2016 14:23:51 09/26/19 17 09/26/2016 CBC w/ auto diff imm gran 0.9 % (0.0-0 .6) high Not Available [facility] [address] [place], [address], 09/26/2016 14:23:51 09/26/19 17 09/26/2016 CMP, serum or plasm a glucose 90 mg/dL (70-99 ) Not Available [facility] [address] [place], [address], 09/26/2016 14:58:33 09/26/19 17 09/26/2016 CMP, serum or plasm a BUN 9 mg/dL (6-20) Not Available [facility] [address] [place], [address], 09/26/2016 14:58:33 09/26/19 17 09/26/2016 CMP, serum or plasm a creatinine 0.7 mg/dL (0.5-1 .0) Not Available [facility] [address] [place], [address], 09/26/2016 14:58:33 09/26/19 17 09/26/2016 CMP, serum or plasm a sodium 140 mmol/ L (133-1 45) Not Available [facility] [address] [place], [address], 09/26/2016 14:58:33 09/26/19 17 09/26/2016 CMP, serum or plasm a potassium 4.5 mmol/ L (3.6-5 .2) Not Available [facility] [address] [place], [address], 09/26/2016 14:58:33 09/26/19 17 09/26/2016 CMP, serum or plasm a chloride 102 mmol/ L (98-10 7) Not Available [facility] [address] [place], [address], 09/26/2016 14:58:33 09/26/19 17 09/26/2016 CMP, serum or plasm a bicarbonate 27 mmol/ L (22-29 ) Not Available [facility] [address] [place], [address], 09/26/2016 14:58:33 09/26/19 17 09/26/2016 CMP, serum or plasm a anion gap 11 (4-17) Not Available [facility] [address] [place], [address], 09/26/2016 14:58:33 09/26/19 17 09/26/2016 CMP, serum or plasm a albumin 4.4 gm/dL (3.4-4 .8) Not Available [facility] [address] [place], [address], 09/26/2016 14:58:33 09/26/19 17 09/26/2016 CMP, serum or plasm a calcium 9.5 mg/dL (8.6-1 0.5) Not Available [facility] [address] [place], [address], 09/26/2016 14:58:33 09/26/19 17 09/26/2016 CMP, serum or plasm a bilirubin,to suzanna 0.5 mg/dL (0-1.2 ) Not Available [facility] [address] [place], [address], 09/26/2016 14:58:33 09/26/19 17 09/26/2016 CMP, serum or plasm a total protein 6.7 gm/dL (6.2-8 .2) Not Available [facility] [address] [place], [address], 09/26/2016 14:58:33 09/26/19 17 09/26/2016 CMP, serum or plasm a Ag ratio 1.9 Not Available [facility] [address] [place], [address], 09/26/2016 14:58:33 09/26/19 17 09/26/2016 CMP, serum or plasm a AST 18 U/L (0-32) Not Available [facility] [address] [place], [address], 09/26/2016 14:58:33 09/26/19 17 09/26/2016 CMP, serum or plasm a alk phos 59 U/L (35-10 4) Not Available [facility] [address] [place], [address], 09/26/2016 14:58:33 09/26/19 17 09/26/2016 CMP, serum or plasm a ALT 17 U/L (0-33) Not Available [facility] [address] [place], [address], 09/26/2016 14:58:33 09/26/19 17 09/26/2016 CMP, serum or plasm a est GFR non 103 mL/mi n/1.7 3_M2 The CKD-E PI creat inine equat ion has not been valid ated in child mitch (<18 years ), pregn ant women , in some racia l or ethni c subgr oups other than Cauca sians and Afric an Ameri cans. Not Available [facility] [address] [place], [address], 09/26/2016 14:58:33 09/26/19 17 09/26/2016 CMP, serum or plasm a est GFR 120 mL/mi n/1.7 3_M2 The CKD-E PI creat inine equat ion has not been valid ated in child mitch (<18 years ), pregn ant women , in some racia l or ethni c subgr oups other than Cauca sians and Afric an Ameri cans. Not Available [facility] [address] [place], [address], 09/26/2016 14:58:33 09/26/19 17 09/26/2016 lipid panel , serum cholesterol, total 182 mg/dL (<200) Not Available [facility] [address] [place], [address], 09/26/2016 14:58:34 09/26/19 17 09/26/2016 lipid panel , serum triglyceride 56 mg/dL (<150) Not Available [facility] [address] [place], [address], 09/26/2016 14:58:34 09/26/19 17 09/26/2016 lipid panel , serum HDL chol 90 mg/dL (>39) Not Available [facility] [address] [place], [address], 09/26/2016 14:58:34 09/26/19 17 09/26/2016 lipid panel , serum LDL cholesterol, calculated 81 mg/dL (0-130 ) Not Available [facility] [address] [place], [address], 09/26/2016 14:58:34 09/26/19 17 09/26/2016 lipid panel , serum non HDL cholesterol (calc) 92 mg/dL (<160) Not Available [facility] [address] [place], [address], 09/26/2016 14:58:34 09/26/19 17 09/26/2016 T4, free, serum free T4 2.59 NG/dL (0.70- 1.80) high Not Available [facility] [address] [place], [address], 09/26/2016 15:07:46 09/26/19 17 09/26/2016 TSH, serum or plasm a TSH 0.16 mIU/m L (0.40- 4.00) low Not Available [facility] [address] [place], [address], 09/26/2016 15:07:47 09/26/19 17 09/26/2016 vitam in D, 25-hy droxy , total , serum 25OH vitamin D 25.9 NG/mL (20-50 ) SERUM 25OHD : 20 TO 50 NG/ML : SUFFI CIENT IN VITAM IN D. Refer ence: [facility] Data Brief : No.59 October: Vitam in D Statu s: Unite d State s: 2000- 2005 Not Available [facility] [address] [place], [address], 09/26/2016 23:06:52 10/30/19 17 10/29/2016 T4, free, serum free T4 1.62 NG/dL (0.70- 1.80) Not Available [facility] [address] [place], [address], 10/29/2016 16:45:36 10/30/19 17 10/29/2016 TSH, serum or plasm a TSH 3.43 mIU/m L (0.40- 4.00) Not Available [facility] [address] [place], [address], 10/29/2016 16:45:37 11/12/19 18 11/11/2017 CBC w/ auto diff WBC 6.7 K/mm3 (4.0-1 1.0) Not Available [facility] [address] [place], [address], 11/11/2017 14:11:13 11/12/19 18 11/11/2017 CBC w/ auto diff RBC 4.80 M/mm3 (4.20- 5.40) Not Available [facility] [address] [place], [address], 11/11/2017 14:11:13 11/12/19 18 11/11/2017 CBC w/ auto diff HGB 14.4 gm/dL (12.0- 16.0) Not Available [facility] [address] [place], [address], 11/11/2017 14:11:13 11/12/19 18 11/11/2017 CBC w/ auto diff HCT 43.8 % (37.0- 47.0) Not Available [facility] [address] [place], [address], 11/11/2017 14:11:13 11/12/19 18 11/11/2017 CBC w/ auto diff MCV 91.3 fL (80.0- 100.0) Not Available [facility] [address] [place], [address], 11/11/2017 14:11:13 11/12/19 18 11/11/2017 CBC w/ auto diff MCH 30.0 pg (27.0- 34.0) Not Available [facility] [address] [place], [address], 11/11/2017 14:11:13 11/12/19 18 11/11/2017 CBC w/ auto diff MCHC 32.9 g/dL (33.0- 37.0) low Not Available [facility] [address] [place], [address], 11/11/2017 14:11:13 11/12/19 18 11/11/2017 CBC w/ auto diff plt 278 K/mm3 (150-4 60) Not Available [facility] [address] [place], [address], 11/11/2017 14:11:13 11/12/19 18 11/11/2017 CBC w/ auto diff RDW-SD 45.6 fL (<47.0 ) Not Available [facility] [address] [place], [address], 11/11/2017 14:11:13 11/12/19 18 11/11/2017 CBC w/ auto diff MPV 11.2 fL (9.4-1 2.4) Not Available [facility] [address] [place], [address], 11/11/2017 14:11:13 11/12/19 18 11/11/2017 CBC w/ auto diff automated NRBC 0.0 #/100 _WBC' s Not Available [facility] [address] [place], [address], 11/11/2017 14:11:13 11/12/19 18 11/11/2017 CBC w/ auto diff abs. NRBC 0.0 K/mm3 Not Available [facility] [address] [place], [address], 11/11/2017 14:11:13 11/12/19 18 11/11/2017 CBC w/ auto diff neut # 4.1 K/mm3 (1.3-7 .0) Not Available [facility] [address] [place], [address], 11/11/2017 14:11:13 11/12/19 18 11/11/2017 CBC w/ auto diff lymph # 1.8 K/mm3 (0.8-3 .1) Not Available [facility] [address] [place], [address], 11/11/2017 14:11:13 11/12/19 18 11/11/2017 CBC w/ auto diff mono# 0.5 K/mm3 (0.4-0 .9) Not Available [facility] [address] [place], [address], 11/11/2017 14:11:13 11/12/19 18 11/11/2017 CBC w/ auto diff eo # 0.1 K/mm3 (0.0-0 .4) Not Available [facility] [address] [place], [address], 11/11/2017 14:11:13 11/12/19 18 11/11/2017 CBC w/ auto diff baso # 0.1 K/mm3 (0.0-0 .1) Not Available [facility] [address] [place], [address], 11/11/2017 14:11:13 11/12/19 18 11/11/2017 CBC w/ auto diff abs. imm gran 0.0 K/mm3 Not Available [facility] [address] [place], [address], 11/11/2017 14:11:13 11/12/19 18 11/11/2017 CBC w/ auto diff neut 62.0 % (44-76 ) Not Available [facility] [address] [place], [address], 11/11/2017 14:11:13 11/12/19 18 11/11/2017 CBC w/ auto diff lymph 27.5 % (15-43 ) Not Available [facility] [address] [place], [address], 11/11/2017 14:11:13 11/12/19 18 11/11/2017 CBC w/ auto diff monocyte 7.8 % (4.5-1 0.5) Not Available [facility] [address] [place], [address], 11/11/2017 14:11:13 11/12/19 18 11/11/2017 CBC w/ auto diff eo 1.2 % (0-6) Not Available [facility] [address] [place], [address], 11/11/2017 14:11:13 11/12/19 18 11/11/2017 CBC w/ auto diff baso 1.2 % (0-2) Not Available [facility] [address] [place], [address], 11/11/2017 14:11:13 11/12/19 18 11/11/2017 CBC w/ auto diff imm gran 0.3 % (0.0-0 .6) Not Available [facility] [address] [place], [address], 11/11/2017 14:11:13 11/12/19 18 11/11/2017 BMP, serum or plasm a glucose 92 mg/dL (70-99 ) Not Available [facility] [address] [place], [address], 11/11/2017 16:37:29 11/12/19 18 11/11/2017 BMP, serum or plasm a BUN 9 mg/dL (6-20) Not Available [facility] [address] [place], [address], 11/11/2017 16:37:29 11/12/19 18 11/11/2017 BMP, serum or plasm a creatinine 0.7 mg/dL (0.5-1 .0) Not Available [facility] [address] [place], [address], 11/11/2017 16:37:29 11/12/19 18 11/11/2017 BMP, serum or plasm a sodium 141 mmol/ L (133-1 45) Not Available [facility] [address] [place], [address], 11/11/2017 16:37:29 11/12/19 18 11/11/2017 BMP, serum or plasm a potassium 4.6 mmol/ L (3.6-5 .2) Not Available [facility] [address] [place], [address], 11/11/2017 16:37:29 11/12/19 18 11/11/2017 BMP, serum or plasm a chloride 104 mmol/ L (98-10 7) Not Available [facility] [address] [place], [address], 11/11/2017 16:37:29 11/12/19 18 11/11/2017 BMP, serum or plasm a bicarbonate 25 mmol/ L (22-29 ) Not Available [facility] [address] [place] [place], [address], 11/11/2017 16:37:29 11/12/19 18 11/11/2017 BMP, serum or plasm a anion gap 12 (4-17) Not Available [facility] [address] [place], [address], 11/11/2017 16:37:29 11/12/19 18 11/11/2017 BMP, serum or plasm a calcium 9.3 mg/dL (8.6-1 0.5) Not Available [facility] [address] [place], [address], 11/11/2017 16:37:29 11/12/19 18 11/11/2017 BMP, serum or plasm a est GFR non 102 mL/mi n/1.7 3_M2 Creat inine based estim ated glome rular filtr ation rate (eGFR ) is calcu lated using the Chron ic Kidne y Disea se Epide miolo gy Colla borat ion (CKD- EPI). The CKD-E PI creat inine equat ion has not been valid ated in child mitch (<18 years ), pregn ant women or in some racia l or ethni c subgr oups other than Cauca sians and Afric an Ameri cans. Not Available [facility] [address] [place], [address], 11/11/2017 16:37:29 11/12/19 18 11/11/2017 BMP, serum or plasm a est GFR 119 mL/mi n/1.7 3_M2 Creat inine based estim ated glome rular filtr ation rate (eGFR ) is calcu lated using the Chron ic Kidne y Disea se Epide miolo gy Colla borat ion (CKD- EPI). The CKD-E PI creat injose equat ion has not been valid ated in child mitch (<18 years ), pregn ant women or in some racia l or ethni c subgr oups other than Cauca sians and Afric an Ameri cans. Not Available [facility] [address] [place], [address], 11/11/2017 16:37:29 11/12/19 18 11/11/2017 TSH, serum or plasm a TSH 1.56 mIU/m L (0.40- 4.00) Not Available [facility] [address] [place], [address], 11/11/2017 16:47:20 11/12/19 18 11/11/2017 vitam in D, 25-hy droxy , total , serum 25OH vitamin D 23.0 NG/mL (20-50 ) Serum 25OHD : 20 to 50 ng/mL : suffi cient in vitam in D. Refer ence: [facility] Data Brief : No.59 October: Vitam in D Statu s: Unite d State s: 2000- 2005 As of , Vitam in D, 25-Hy droxy assay has been virk ed. In some [facility], the new assay may yield a highe r value (up to 15% incre ase) in sg rison to the old assay . These incre ases would mainl y be notic eable at value s of great er than 50 ng/ml . Not Available [facility] [address] [place], [address], 11/11/2017 17:24:40 11/12/19 18 11/11/2017 micahum arjun montgomery al (PROC ) done by Amie Not Available In-Office Order Internal Use Only DO Not Attach Compendium DO Not Attach Compendium, Do Not Delete/merge, [id number] 11/11/2017 09:19:54 09/16/19 17 07/19/2016 MAMMO , scree kelly, bilat eral No observ ation record ed. [email or web address] Not Available 2016 11:21:16 07/23/20 17 07/21/2017 MAMMO , scree kelly, digit al, bilat eral No observ ation record ed. [facility] ([facility]) [address], [place], [address], 07/25/2017 14:10:22 Result Notes None recorded. Problems Name Problem SNOMED Code Status Onset Date Resolution Date Notes Provider Name and Address Organization Details Recorded Time Hypothyroid ism 10403751 Active 2016 DIDIER Osorio [address] [facility] [address], [place], [address], [facility] 7 09:29:01 Lateral epicondylit is 984175419 Active 2016 SHRAVAN Wiggins [facility] 7 10:24:00 Greater trochanteri c pain syndrome 8080538 Completed 201610/02/2016 SHRAVAN Wiggins [facility] 7 10:26:31 Problem Notes None recorded. Procedures Surgical History Date Name Laterality Status Provider Name and Address Organization Details Recorded Time 07/21/20 17 Most Recent Mammogram completed Wade Gant [facility] 07/25/2017 14:10:17 07/21/20 17 Mammogram screening completed Wade Gant [facility] 07/25/2017 14:10:05 10/03/19 17 Corticosteroid Injection completed Hardeep Figueroa MD [address] [facility] [address], [place], [address], [facility] 10/02/2016 11:06:17 02/24/20 15 Date of Last Pap Smear completed Amie duvall [place] [facility] 11/11/2017 08:51:07 10/03/19 13 Cholecystectomy completed Amie duvall MA [facility] 10/02/2016 10:34:47 Dxa bone density mohsen vrt fx completed Amie duvall [place] [facility] 11/11/2017 08:49:12 Colonoscopy completed Amie duvall [place] [facility] 11/11/2017 08:49:21 Imaging Results Imaging Date Name Status LastModified by Organiz ation Details LastModified Time 07/19/2016 MAMMO, screening, bilateral completed [email or web address] Information not available 09/25/2016 11:21:16 07/21/2017 MAMMO, screening, digital, bilateral completed [facility] ([facility]) [address] [place], [address], 07/25/2017 14:10:22 Procedure Notes None recorded. Medical Equipment None Reported. Allergies No known drug allergies Medications Name Sig Start Date Stop Date Status Note LastModified by Organization Details LastModified Time meloxicam 7.5 mg tablet Take 1 tablet twice a day by oral route as directed for 30 days. 11/11 completed Not Available Not Available Not Available levothyroxi ne 100 mcg tablet 09/26 completed Not Available Not Available Not Available levothyroxi ne 150 mcg tablet 1 tab daily orally 11/11 completed Not Available Not Available Not Available levothyroxi ne 112 mcg tablet take 1 tablet by mouth once daily as directed 2018 active Not Available Not Available Not Avai lable Vitals Date Recorded Body weight Body height Body mass index (BMI) Body temperature Heart rate Oxygen saturation Oxygen saturation in Arterial blood by Pulse oximetry Systolic blood pressure Diastolic blood pressure Provider Name and Address Organization Details Last Updated DateTime 7 03149.4 2 g 157.48 cm 23.6 kg/m2 98.6 [degF] 90 /min 98 % 98 % 111 mm[Hg] 74 mm[Hg] Elizabeth Chapa MA [facility] 7 09:14:17 Date Recorded Body height Oxygen saturation Oxygen saturation in Arterial blood by Pulse oximetry Heart rate Body temperature Body weight Body mass index (BMI) Systolic blood pressure Diastolic blood pressure Provider Name and Address Organization Details Last Updated DateTime 7 157.48 cm 100 % 100 % 77 /min 98.4 [degF] 76711.6 g 24 kg/m2 96 mm[Hg] 62 mm[Hg] Amie graf MA [facility] 10:28:14 Date Recorded Oxygen saturation Oxygen saturation in Arterial blood by Pulse oximetry Heart rate Body temperature Body weight Body mass index (BMI) Body height Systolic blood pressure Diastolic blood pressure Provider Name and Address Organization Details Last Updated DateTime 8 99 % 99 % 77 /min 98.4 [degF] 49489.6 g 24 kg/m2 157.48 cm 90 mm[Hg] 64 mm[Hg] Amie graf MA [facility] 8 08:55:20 Social History Question Answer Notes LastModified by Organizat ion Details LastModified Time Tobacco Smoking Status Never Smoker SHRAVAN Vides [facility] 09/26/2016 09:08:03 Do You Have An Advance Directive? Yes HCP Signed 09/26/2016 Information not available 09/26/2016 What Is Your Level Of Alcohol Consumption? Occasional Information not available 09/26/2016 Is Blood Transfusion Acceptable In An Emergency? Yes Information not available 09/26/2016 What Is Your Level Of Caffeine Consumption? Moderate Coffee 1 Cup Daily Information not available 09/26/2016 How Much Tobacco Do You Chew? None Information not available 10/02/2016 Are You Currently Employed? Yes Information not available 09/26/2016 What Type Of Diet Are You Following? REGULAR Information not available 09/26/2016 Which Illicit Or Recreational Drugs Have You Used? 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 With Others (Ángel r), Daughter Information not available 09/26/2016 Do You Take Precautions To Prevent Distracted Driving? Yes Information not available 09/26/2016 How Often Do You Need To Have Someone Help You When You Read Instructions, Pamphlets, Or Other Written Material From Your Doctor Or Pharmacy? Never Information not available 09/26/2016 Have You Served In The ? No Information not available 09/26/2016 What Was The Date Of Your Most Recent Tobacco Screening? 11/11/2017 Information not available 02/25/2019 How Many Children Do You Have? 1 Information not available 09/26/2016 Do You Use Protection During Sex? Usually Information not available 09/26/2016 Seat Belts Used Routinely Yes Information not available 09/26/2016 Are You Sexually Active? Yes Information not available 09/26/2016 Smoke Alarm In Home Yes Information not available 09/26/2016 At What Age Did You Start Smoking Tobacco? 0 Information not available 10/02/2016 Are You Passively Exposed To Smoke? No Information not available 09/26/2016 How Much Tobacco Do You Smoke? No Information not available 10/02/2016 Do You Use Sunscreen Routinely? Yes Information not available 09/26/2016 How Many Years Have You Smoked Tobacco? 0 Information not available 10/02/2016 Sex: Unknown Functional Status Question Answer Note LastModified by Organization D etails LastModified Time Are you able to care for yourself? Yes Information n ot available 09/26/2016 What is your exercise level? None Information not available 09/26/2016 Mental Status None recorded. Family History Relationship Description Onset Age of this Age Resolved Age Notes LastModified by Organization Details LastModified Time Brother Malignant neoplastic disease skin abolcun Not available 2016 09:06:57 Mother Supraventric ular tachycardia [email or web address] Not available 09/05 09:41:02 Medical History Condition Response Thyroid Problems Y Gynecological History Statement/Question Response Abnormal Pap N Flow Moderate Duration of Flow (days) 4 Most Recent Mammogram 07/21/2017 Current Control Method None Age at Menarche 11 Age at First Child 25 Date of Last Colonoscopy Menses Monthly Y Date of Last Pap Smear 02/23/2015 LMP Approximate Obstetrics History GPAL:G 0 P 0 0 0 0 Immunizations Vaccine Type Date Status Note Provider Nam e and Address Organization Details Recorded Time Hep B, adult 0 completed Kadi olivas [facility] 09/16/2016 11:49:53 Tdap 0 completed Kadi olivas [facility] 09/16/2016 11:50:01 Influenza, split virus, quadrivalent , PF 8 cancelled [facility] objection Not [facility] 02:[facility]08 Past Encounters Encounter ID Performer Location Encounter Start Date Encounter Closed Date Diagnosis/Indication Diagnosis SNOMED-CT Code Diagnosis ICD10 Code Diagnosis Note [id number] Verónica de la o Main Office [address] [place] [address] 09/26/2016 08:52:20 09/26/2016 10:20:06 Adult health examination 552063484 Z00.00 UTD on pap and mammo, will check blood work Hypothyroidism 41898591 E03.9 Hyperlipidemia 63696402 E78.5 Fatigue 15868415 R53.83 Shoulder joint pain 2679 67267 M25.519 Elbow joint pain 1261483 01 M25.529 Greater tr ochanteric pain syndrome 2542941 M70.62 [id number] Hardeep Figueroa MD Main Office [address] [address] 10/02/2016 10:12:52 10/02/2016 11:04:55 Lateral epicondylitis 468001321 M77.11 [id number] Josue allred Main Office [address] [address] 11/11/2017 08:39:41 11/11/2017 09:27:14 Hypothyroidism 67556286 E03.9 will recheck labs. Immunization refused 275 960070 Z28.21 Fatigue 39309007 R53.83 c/o fatigue x 2 weeks. med dosing was changed lasy year and had been doing well. Impacted cerumen 4009832 6 H61.22 lavage left. Health Concerns Section Related Observation LastModified by Organization Detai ls LastModified Time None Recorded Concern Status LastModified by Organization Details LastModified Time None Recorded Advance Directives Directive Y: HCP signed 09/26/2016 Payers Encounter Date Sequence Insurance Name Policy Number Policy Dockery Covered Member ID Dockery Member ID Guarantor Name 09/26/2016 1 [place] [employer] [place] [id number] Tay Rodriguez [id number] Tay Rodriguez 10/02/2016 1 [place] [employer] [place] [id number] Tay Rodriguez [id number] Tay Rodriguez 11/11/2017 1 [place] [id number] Tay Rodriguez [id number] Tay Rodriguez Notes Date Note Type Note Provider Name and Address Organization Details Recorded Time 09/26/2016 text/html Generic HPI TemplateReported bypatient.Notes:Presen ts for new patient PE, Concerns re:- Right elbow pain- sx x 2 months, no injury or trauma that she can recall. Deniesnumbness or tingling.-Left shoulder issues, hx dislocation x 2 , she would like strengthening exercises, this am she states she reached behind her and felt it slightly dislocate, she states it usually pops back in on it's own. She was seen in ED for her previous dislocations, saw ortho but very briefly.- Patient notes when she is stressed she does this weird jaw clicking, ? clenching teeth, she feels her jaw gets very tight, dis have a mouth juventino at some point.Hx hypothyroid, last checked last March 2016. Verónica olivas, [facility] 09/26/2016 12:56:40 10/02/2016 text/html Musculoskeletal PainReported bypatient.Location:rig ht elbow Quality:aching;dull Severity:same Duration:present for 1-6 months Timing:constant; pain at night; gradual Context:no obvious trauma or overuse Associated Symptoms:no fever; no weak limbs; no tingling ADL (Activities of Daily Living)improve with medication (started meloxicam with some improvement) Hardeep Figueroa MD [address] [address], [place], [address], [facility] 10/02/2016 11:08:21 11/11/2017 text/html Generic HPI TemplateReported bypatient.Notes:Presen ts for recheck of thyroid symptoms, feeling more tired in the last couple of weeks. does note some discomfort in her chest intermittently- tightness. denies constipation, diarrhea, sometimes feels thirsty. does not drink enough. No MVI. Josue olivas, [facility] 11/11/2017 09:56:48 OBGyn Episode No OBEpisode recorded.
--- OUTSIDE RECORDS SUMMARY | 2024-09-17 08:24 | XMS_ITS ---
Author Organization [facility] Address [address] [address] Care Team Providers Care Risk Control Product Liability Director Name Role Phone BECK TORRES, EMELIA Primary Care Provider Unav ailable RADHA TAMEZ Unavailable [phone] Allergies Allergen (clinical drug ingredient) Drug/Non Drug Allergy documented on EMR Reaction Allergy Type Onset Date Status codeine Codeine Vomiting Drug Allergy Active REASON FOR VISIT Annual HOME CARE COORDINATOR Physical Medications Medication SIG (Take, Route, Frequency, [...] 05/04/2024 Encounters Encounter Location Date Provider Diagnosis [facility] [employer] [address] 05/04/2024 RADHACarmen MADRIDTAMEZ Encounter for gynecological examination [...] Follow Up: 1 Year, Reason: Y early Lump Inspector Exam Provider Name:RADHA Schaffer, 05/12/2025 09:00:00 AM, [address], [address], [place], [address], Progress Notes * CANDY MCCORDB:[birth year] (54 yo F)Acc No.[id number]:05/04/2024 PROGRESS NOTES Patient:SUJEY DUFFY Provider:?RADHA TAMEZ MD :1970???Age:54 Y???Sex:Female D ate:05/04/2024 Address:[address] [place], [place] [id number] Pcp:EMELIA SOLARES MD Subjective: * Chief Complaints: * ???Annual HOME CARE COORDINATOR Physical * HPI: ???Constitutional:?Sujey is a 54yo [...] cancer. Her last mammogram was 09/24/22 at [facility]?- incomplete due to inadequate film of axilla [...] she is active at home. * ROS:?Annual Lump Inspector Exam ROS:?Bowel habit changes?denies.?Bladder symptoms?denies.?Vaginal discharge, unusual?denies.?Vaginal itch or odor?denies.?weight or appetite changes?denies.?Chest pains, SOB?denies.?depression?denies.?Breast:?Denies?Breast lump.?Denies?Nipple discharge.?Hematology:?Denies?Swollen glands.?Skin:?Patient denies?changing moles.?Comments?gets yearly skin check.?Psychiatric:?Denies?Anxiety.? * Medical History:? * Lump Inspector History:?/ Para?08/04.?Sexual activity?currently sexually active.?Last Pap Smear:?07/04/20 [...] , Christopher. ?Natural support system: yes. 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 ?Pets: none. ?Sexual abuse: no. ?Sexually [...] no acute distress, well developed, well nourished, job press operator present in room.?HEAD:?normocephalic, atraumatic.?NECK/THYROID:?neck supple, full [...] * Follow Up:?1 Year (Reason: Y early Lump Inspector Exam) * Images: Billing Information: * Visit Code:? 07857 Preventive Care Est Pt. Age 40-64. * Procedure Codes:? * Sign off status: Completed true * Provider:?RADHA TAMEZ MD Date:?2023 Generated for Low ureña/Giuliano/eTransmitting on:?09/17/2024 08:24 AM EST History and Physical Notes * HPI [...] cancer. Her last mammogram was 09/24/22 at [facility] - incomplete due to inadequate film of [...] ac clint distress, well developed, well nourished, job press operator present in room HEAD: normocephalic, atrau [...]
--- OUTSIDE RECORDS SUMMARY | 2024-09-17 08:25 | XMS_ITS | Patient Health Record ---
Author Organization [email or web address] [facility] Address [address] [place] [address] Care Team Providers Care Licensed Massage Therapist Name Role Phone EMELIA SOLARES MD Primary Care Provider RADHA Gar Unavailable [phone] Allergies Allergen (clinical drug ingredient) Drug/Non Drug [...] Status W/U Status Risk Notes Problem Hypothyroidism (90428164) Hypothyroidism, unspecified (E03.9) Active confirmed Problem Hemorrhage of colon due to diverticulosis (215994295827919) Diverticulosis of intestine, part unspecified, without perforation or abscess with bleeding (K57.91) Active confirmed Problem Endometriosis of uterus (90837122) Endometriosis of uterus (N80.0) Active confirmed Problem Perimenopausal disorder (787005047) Other specified menopausal and perimenopausal disorders (N95.8) Active confirmed Problem History of gastrointestinal disease (424760783) Personal history of other diseases of the digestive system (Z87.19) Active confirmed Problem Menopause (789819560) Menopausal and female climacteric states (N95.1) Active confirmed Problem COVID-19 (932548749) COVID-19 (U07.1) Active confirmed Vital Signs Temperature 97.3 degrees Fahrenheit 05/04/2024 Blood pressure diastolic 80 mm Hg 05/04/2024 Height 62 in 05/04/2024 Blood pressure systolic 110 mm Hg 05/04/2024 Weight 131 lbs 05/04/2024 BMI 23.96 kg/m2 05/04/2024 Encounters Encounter Location Date Provider Diagnosis [employer] [address] [place] [address] 05/04/2024 RADHA TAMEZ Encounter for gynecological examination (general) (routine) without abnormal findings Z01.419 ; Encounter for screening mammogram for malignant neoplasm of breast Z12.31 and Other benign neoplasm of uterus, unspecified D26.9 [employer] [address] [place] [address] 06/15/2024 RADHA TAMEZ Assessments Encounter Date Diagnosis [...] Name:RADHA Stormy Schaffer, 05/12/2025 09:00:00 AM, [address], [address], [place], [address], Insurance Providers Payer Name Payer Address Payer Phone Subscriber Number Group Number Insured Name Patient Relationship to Insured Coverage Start Date Coverage End Date [employer] [address] [place] [address] [id number] GIDEON BOLDEN Spouse - patient is the [...]
[2024-09-17 09:49] LABS: MANUAL DIFF FLAG NO
[2024-09-17 10:06] LABS: Basophils Absolute Auto 0.1 X10*3/uL (0.0-0.2); Basophils Percent Auto 1.7 % (0-2); Eosinophils Absolute Auto 0.2 X10*3/uL (0.0-0.4); Eosinophils Percent Auto 3.2 % (0-4); Imm Gran Abs Auto 0.02 X10*3/uL (0.00-0.03); Imm Gran Pct Auto 0.3 % (0.0-0.4); Lymphocytes Absolute Auto 2.2 X10*3/uL (1.2-4.9); Lymphocytes Percent Auto 36.6 % (20-40); Mean Corpuscular HGB Conc 32.6 g/dl (31.0-35.0); Mean Corpuscular Hemoglobin 29.5 pg (27.0-33.0); Mean Corpuscular Volume 90.5 fL (80.0-98.0); Mean Platelet Volume 10.4 fL (9.4-12.3); Monocytes Absolute Auto 0.5 X10*3/uL (0.1-1.2); Monocytes Percent Auto 8.5 % (2-11); Neutrophils Absolute Auto 2.9 x10*3/uL (2.0-8.3); Neutrophils Percent Auto 49.7 % (45-73); Platelet Count 283 X10*3/uL (160-400); Red Blood Count 4.75 X10*6/uL (4.20-5.50); Red Cell Distribution Width 12.3 % (11.0-16.0); White Blood Count 5.9 X10*3/uL (4.8-10.8)
[2024-09-17 10:29] LABS: Alanine Aminotransferase 25 U/L (0-31); Anion Gap 10 (12-20); Aspartate Amino Transferase 24 U/L (5-31); Blood Urea Nitrogen 11 mg/dL (9-16); Calcium 9.4 mg/dL (8.4-10.2); Carbon Dioxide 26 mmol/L (22-29); Chloride 108 mmol/L (96-108); Cholesterol 208 mg/dL (<200); Estimated Glomerular Filt Rate > 60; Glucose Fasting 89 mg/dL (60-99); HDL Cholesterol 82 mg/dL (>40); LDL Cholesterol Calculated 115 mg/dL (<100); Potassium 3.9 mmol/L (3.3-5.1); Sodium 140 mmol/L (135-145); Triglycerides 59 mg/dL (<150)
[2024-09-17 10:51] LABS: Free T4 (Free Thyroxine) 1.56 ng/dL (0.71-1.85); Vitamin D 25-OH Total 55.2 ng/mL (>30)
== END 2024-09-17 08:17 | disposition home or self-care (01) ==
LOC: HO.HMGCLDS 08:16
PROVIDERS: PCP Internal Medicine; Visit Provider Internal Medicine
DX: E03.9 Hypothyroidism, unspecified (principal); R10.32 Left lower quadrant pain; Z13.220 Encounter for screening for lipoid disorders; Z78.0 Asymptomatic menopausal state; Z86.0100 Personal history of colon polyps, unspecified
CPT/HCPCS: 36415; 80048; 80061; 82306; 84439; 84443; 84450; 84460; 85025

== ENCOUNTER 2025-02-03 13:30 | Outpatient (AMB) | payer BC, SELFPAY ==
--- OUTSIDE RECORDS SUMMARY | 2025-02-03 13:38 | XMS_ITS | Patient Health Record ---
Author Organization [employer] [facility] Address [address] [place] [address] Care Team Providers Care Laundry Or Dry Cleaners Counter Clerk Name Role Phone EMELIA SOLARES MD Primary Care Provider RADHA Gar Unavailable [phone] Allergies Allergen (clinical drug ingredient) Drug/Non Drug [...] Status W/U Status Risk Notes Problem Hypothyroidism (02701134) Hypothyroidism, unspecified (E03.9) Active confirmed Problem Hemorrhage of colon due to diverticulosis (698592589513478) Diverticulosis of intestine, part unspecified, without perforation or abscess with bleeding (K57.91) Active confirmed Problem Endometriosis of uterus (19175729) Endometriosis of uterus (N80.0) Active confirmed Problem Perimenopausal disorder (957202092) Other specified menopausal and perimenopausal disorders (N95.8) Active confirmed Problem History of gastrointestinal disease (537282762) Personal history of other diseases of the digestive system (Z87.19) Active confirmed Problem Menopause (621658932) Menopausal and female climacteric states (N95.1) Active confirmed Problem COVID-19 (577948052) COVID-19 (U07.1) Active confirmed Vital Signs Temperature 97.3 degrees Fahrenheit 05/04/2024 Blood pressure diastolic 80 mm Hg 05/04/2024 Height 62 in 05/04/2024 Blood pressure systolic 110 mm Hg 05/04/2024 Weight 131 lbs 05/04/2024 BMI 23.96 kg/m2 05/04/2024 Encounters Encounter Location Date Provider Diagnosis [facility] [employer] [address] [place] [address] 05/04/2024 RADHA TAMEZ Encounter for gynecological examination (general) (routine) without abnormal findings Z01.419 ; Encounter for screening mammogram for malignant neoplasm of breast Z12.31 and Other benign neoplasm of uterus, unspecified D26.9 [employer] [address] [place] [address] 06/15/2024 RADHA TAMEZ Assessments Encounter Date Diagnosis [...] Appt Details Provider Name:RADHA Stormy Schaffer, 05/12/2025 09:10:00 AM, [address], [place], [address], Insurance Providers Payer Name Payer Address Payer Phone Subscriber Number Group Number Insured Name Patient Relationship to Insured Coverage Start Date Coverage End Date [employer] [place] [address] [place] [address] [id number] GIDEON BOLDEN Spouse - patient is the [...]
--- OUTSIDE RECORDS SUMMARY | 2025-02-03 13:38 | XMS_ITS | Data Portability ---
Author Organization [facility], Main Office Address [address] [facility] [address] [place] [id number] Care Team Providers Care Regional Clinical Research Associate Name Role Phone CAROLA KEITHPAO Primary Care Provider KINGSTON BAUTISTA Neuropsychologist [phone] KINGSTON BAUTISTA Configuration Management Specialist Assessment Encounter Date Assessment Date Assessment LastModified by Organization Details LastModified Time 09/26/2016 09/26/2016 Presents for new patient PE with multiple complaints as below. PT , RICE, NSAIDS, to return in 1 week for possible elbow injection with Dr. Figueroa. [email or web address] Not available 09/26/2016 10:23:32 Plan of Treatment Reminders Order Date Submit Date Provider Last Modified By Organization Details Last Modified Time Details Appointments None record ed. Lab TSH, serum or plasma 2017 018 JASMINA [facility], [address], [place], [id number], 8 16:47:20 vitami n D, 25-hyd leonard, total, serum 2017 018 JASMINA [facility], [address], [place], [id number], 8 17:24:40 CBC w/ auto diff 2017 018 [facility]MIN[facility], [address], [place], [address], 8 14:11:13 BMP, serum or plasma 2017 018 JASMINA [facility], [address], [place], [place], [address], 8 16:37:29 lipid panel, serum 2016 017 JASMINA [facility], [address], [place], [address], 7 14:58:34 CMP, serum or plasma 2016 017 JASMINA [facility], [address], [place], [address], 7 14:58:33 vitami n D, 25-hyd leonard, total, serum 2016 017 JASMINA [facility], [address], [place], [place], [address], 7 23:06:52 CBC w/ auto diff 2016 017 J[facility]MINA [facility], [address], [place], [address], 7 14:23:51 TSH, serum or plasma 2016 017 [facility], [address], [place], [place], [address], 7 15:07:47 T4, free, serum 2016 017 J[facility]MIN[facility], [address], [place], [address], 7 15:07:46 Referral physic al therap ist referr al - left hip pain, hx bursit is. 2016 017 zulema [facility], [address] [place] [address], [id number], 7 11:48:01 physic al therap y should er referr al - hx left should er disloc ations X 2, feelin g left should er instab ility, worse with specif ic moveme nts, needs streng thenin g 2016 017 [facility], [address] [place] [address], [id number], 7 11:48:00 physic al therap ist referr al - right elbow latera l epicon dyliti s, pain, tender ness 2016 017 [facility], [address] [place] [address], [id number], 7 11:48:02 Procedures cerume n remova l (PROC) 2017 018 JASMINA In-Office Order, Internal Use Only DO Not Attach Compendium DO Not Attach Compendium, Do Not Delete/merge, [id number] 8 09:38:11 Surgeries None record ed. Imaging None record ed. Medication Orders meloxi cam 7.5 mg tablet 2016 017 [id number] [address] [place], [place], [id number], 8 08:53:03 Patient TargetsNo targets recorded. Patient Instructions Encounter Date Encounter Id Patient Instructions Last Modified By Organization Details Last Modified Time 09/26/2016 [id number] shoulder stretches: exercises [email or web address] Not available 09/26/2016 [...] medication. [email or web address] Not available 09/26/2016 12:56:26 10/02/2016 [id number] tennis elbow: care instructions [email or web address] Not available 10/02/2016 11:04:44 11/11/2017 [id number] call or return for worsening or concerns. [email or web address] Not available 11/11/2017 09:17:22 I have reviewed the note and agree with the assessment and plan of care. [email or web address] Not available 11/11/2017 09:56:19 Reason for Referral hx left shoulder dislocation s X 2, feeling left shoulder instability, worse with specific movements, needs strengthening Referring Physician: Suly Keith [facility], Encounter Date: 09/26/2016 left hip pain, hx bursitis. Referring Physician: Suly Keith [facility], Encounter Date: 09/26/2016 right elbow lateral epicondy litis, pain, tenderness Referring Physician: Suly Keith [facility], Encounter Date: 09/26/2016 Results Created Date Observation Date Name Description Value Unit Range Abnormal Flag Note LastModifiedBy Organization Detail LastModifiedTime 09/26/1909/26/2016 CBC w/ auto diff WBC 6.6 K/mm3 (4.0-1 1.0) Not Available [facility] (Centralized Electronic Ordering - All Locations) Patient Can Go To The Location Of Their Choice, 09/26/2016 14:23:51 09/26/1909/26/2016 CBC w/ auto diff RBC 4.79 M/mm3 (4.20- 5.40) Not Available [facility] (Centralized Electronic Ordering - All Locations) Patient Can Go To The Location Of Their Choice, 09/26/2016 14:23:51 09/26/1909/26/2016 CBC w/ auto diff HGB 13.9 gm/dL (12.0- 16.0) Not Available [facility] (Centralized Electronic Ordering - All Locations) Patient Can Go To The Location Of Their Choice, 09/26/2016 14:23:51 09/26/1909/26/2016 CBC w/ auto diff HCT 43.1 % (37.0- 47.0) Not Available [facility] (Centralized Electronic Ordering - All Locations) Patient Can Go To The Location Of Their Choice, 09/26/2016 14:23:51 09/26/1909/26/2016 CBC w/ auto diff MCV 90.0 fL (80.0- 100.0) Not Available [facility] (Centralized Electronic Ordering - All Locations) Patient Can Go To The Location Of Their Choice, 09/26/2016 14:23:51 09/26/1909/26/2016 CBC w/ auto diff MCH 29.0 pg (27.0- 34.0) Not Available [facility] (Centralized Electronic Ordering - All Locations) Patient Can Go To The Location Of Their Choice, 09/26/2016 14:23:51 09/26/1909/26/2016 CBC w/ auto diff MCHC 32.3 g/dL (33.0- 37.0) low Not Available [facility] (Centralized Electronic Ordering - All Locations) Patient Can Go To The Location Of Their Choice, 09/26/2016 14:23:51 09/26/1909/26/2016 CBC w/ auto diff plt 283 K/mm3 (150-4 60) Not Available [facility] (Centralized Electronic Ordering - All Locations) Patient Can Go To The Location Of Their Choice, 09/26/2016 14:23:51 09/26/1909/26/2016 CBC w/ auto diff RDW-SD 42.2 fL (<47.0 ) Not Available [facility] (Centralized Electronic Ordering - All Locations) Patient Can Go To The Location Of Their Choice, 09/26/2016 14:23:51 09/26/1909/26/2016 CBC w/ auto diff MPV 11.0 fL (9.4-1 2.4) Not Available [facility] (Centralized Electronic Ordering - All Locations) Patient Can Go To The Location Of Their Choice, 09/26/2016 14:23:51 09/26/1909/26/2016 CBC w/ auto diff automated NRBC 0.0 #/100 _WBC' s Not Available [facility] (Centralized Electronic Ordering - All Locations) Patient Can Go To The Location Of Their Choice, 09/26/2016 14:23:51 09/26/1909/26/2016 CBC w/ auto diff abs. NRBC 0.0 K/mm3 Not Available [facility] (Centralized Electronic Ordering - All Locations) Patient Can Go To The Location Of Their Choice, 09/26/2016 14:23:51 09/26/1909/26/2016 CBC w/ auto diff neut # 3.9 K/mm3 (1.3-7 .0) Not Available [facility] (Centralized Electronic Ordering - All Locations) Patient Can Go To The Location Of Their Choice, 09/26/2016 14:23:51 09/26/1909/26/2016 CBC w/ auto diff lymph # 1.8 K/mm3 (0.8-3 .1) Not Available [facility] (Centralized Electronic Ordering - All Locations) Patient Can Go To The Location Of Their Choice, 09/26/2016 14:23:51 09/26/1909/26/2016 CBC w/ auto diff mono# 0.6 K/mm3 (0.4-0 .9) Not Available [facility] (Centralized Electronic Ordering - All Locations) Patient Can Go To The Location Of Their Choice, 09/26/2016 14:23:51 09/26/1909/26/2016 CBC w/ auto diff eo # 0.1 K/mm3 (0.0-0 .4) Not Available [facility] (Centralized Electronic Ordering - All Locations) Patient Can Go To The Location Of Their Choice, 09/26/2016 14:23:51 09/26/1909/26/2016 CBC w/ auto diff baso # 0.1 K/mm3 (0.0-0 .1) Not Available [facility] (Centralized Electronic Ordering - All Locations) Patient Can Go To The Location Of Their Choice, 09/26/2016 14:23:51 09/26/1909/26/2016 CBC w/ auto diff abs. imm gran 0.1 K/mm3 Not Available [facility] (Centralized Electronic Ordering - All Locations) Patient Can Go To The Location Of Their Choice, 09/26/2016 14:23:51 09/26/1909/26/2016 CBC w/ auto diff neut 59.5 % (44-76 ) Not Available [facility] (Centralized Electronic Ordering - All Locations) Patient Can Go To The Location Of Their Choice, 09/26/2016 14:23:51 09/26/1909/26/2016 CBC w/ auto diff lymph 27.6 % (15-43 ) Not Available [facility] (Centralized Electronic Ordering - All Locations) Patient Can Go To The Location Of Their Choice, 09/26/2016 14:23:51 09/26/1909/26/2016 CBC w/ auto diff monocyte 9.7 % (4.5-1 0.5) Not Available [facility] (Centralized Electronic Ordering - All Locations) Patient Can Go To The Location Of Their Choice, 09/26/2016 14:23:51 09/26/1909/26/2016 CBC w/ auto diff eo 1.2 % (0-6) Not Available [facility] (Centralized Electronic Ordering - All Locations) Patient Can Go To The Location Of Their Choice, 09/26/2016 14:23:51 09/26/1909/26/2016 CBC w/ auto diff baso 1.1 % (0-2) Not Available [facility] (Centralized Electronic Ordering - All Locations) Patient Can Go To The Location Of Their Choice, 09/26/2016 14:23:51 09/26/1909/26/2016 CBC w/ auto diff imm gran 0.9 % (0.0-0 .6) high Not Available [facility] (Centralized Electronic Ordering - All Locations) Patient Can Go To The Location Of Their Choice, 09/26/2016 14:23:51 09/26/1909/26/2016 CMP, serum or plasm a glucose 90 mg/dL (70-99 ) Not Available [facility] (Centralized Electronic Ordering - All Locations) Patient Can Go To The Location Of Their Choice, 09/26/2016 14:58:33 09/26/1909/26/2016 CMP, serum or plasm a BUN 9 mg/dL (6-20) Not Available [facility] (Centralized Electronic Ordering - All Locations) Patient Can Go To The Location Of Their Choice, 09/26/2016 14:58:33 09/26/1909/26/2016 CMP, serum or plasm a creatinine 0.7 mg/dL (0.5-1 .0) Not Available [facility] (Centralized Electronic Ordering - All Locations) Patient Can Go To The Location Of Their Choice, 09/26/2016 14:58:33 09/26/1909/26/2016 CMP, serum or plasm a sodium 140 mmol/ L (133-1 45) Not Available [facility] (Centralized Electronic Ordering - All Locations) Patient Can Go To The Location Of Their Choice, 09/26/2016 14:58:33 09/26/1909/26/2016 CMP, serum or plasm a potassium 4.5 mmol/ L (3.6-5 .2) Not Available [facility] (Centralized Electronic Ordering - All Locations) Patient Can Go To The Location Of Their Choice, 09/26/2016 14:58:33 09/26/1909/26/2016 CMP, serum or plasm a chloride 102 mmol/ L (98-10 7) Not Available [facility] (Centralized Electronic Ordering - All Locations) Patient Can Go To The Location Of Their Choice, 09/26/2016 14:58:33 09/26/1909/26/2016 CMP, serum or plasm a bicarbonate 27 mmol/ L (22-29 ) Not Available [facility] (Centralized Electronic Ordering - All Locations) Patient Can Go To The Location Of Their Choice, 09/26/2016 14:58:33 09/26/1909/26/2016 CMP, serum or plasm a anion gap 11 (4-17) Not Available [facility] (Centralized Electronic Ordering - All Locations) Patient Can Go To The Location Of Their Choice, 09/26/2016 14:58:33 09/26/1909/26/2016 CMP, serum or plasm a albumin 4.4 gm/dL (3.4-4 .8) Not Available [facility] (Centralized Electronic Ordering - All Locations) Patient Can Go To The Location Of Their Choice, 09/26/2016 14:58:33 09/26/1909/26/2016 CMP, serum or plasm a calcium 9.5 mg/dL (8.6-1 0.5) Not Available [facility] (Centralized Electronic Ordering - All Locations) Patient Can Go To The Location Of Their Choice, 09/26/2016 14:58:33 09/26/1909/26/2016 CMP, serum or plasm a bilirubin,to suzanna 0.5 mg/dL (0-1.2 ) Not Available [facility] (Centralized Electronic Ordering - All Locations) Patient Can Go To The Location Of Their Choice, 09/26/2016 14:58:33 09/26/1909/26/2016 CMP, serum or plasm a total protein 6.7 gm/dL (6.2-8 .2) Not Available [facility] (Centralized Electronic Ordering - All Locations) Patient Can Go To The Location Of Their Choice, 09/26/2016 14:58:33 09/26/1909/26/2016 CMP, serum or plasm a Ag ratio 1.9 Not Available [facility] (Centralized Electronic Ordering - All Locations) Patient Can Go To The Location Of Their Choice, 09/26/2016 14:58:33 09/26/1909/26/2016 CMP, serum or plasm a AST 18 U/L (0-32) Not Available [facility] (Centralized Electronic Ordering - All Locations) Patient Can Go To The Location Of Their Choice, 09/26/2016 14:58:33 09/26/1909/26/2016 CMP, serum or plasm a alk phos 59 U/L (35-10 4) Not Available [facility] (Centralized Electronic Ordering - All Locations) Patient Can Go To The Location Of Their Choice, 09/26/2016 14:58:33 09/26/1909/26/2016 CMP, serum or plasm a ALT 17 U/L (0-33) Not Available [facility] (Centralized Electronic Ordering - All Locations) Patient Can Go To The Location Of Their Choice, 09/26/2016 14:58:33 09/26/1909/26/2016 CMP, serum or plasm a est GFR non 103 mL/mi n/1.7 3_M2 The CKD-E PI creat inine equat ion has not been valid ated in child mitch (<18 years ), pregn ant women , in some racia l or ethni c subgr oups other than Cauca sians and Afric an Ameri cans. Not Available [facility] (Centralized Electronic Ordering - All Locations) Patient Can Go To The Location Of Their Choice, 09/26/2016 14:58:33 09/26/1909/26/2016 CMP, serum or plasm a est GFR 120 mL/mi n/1.7 3_M2 The CKD-E PI creat inine equat ion has not been valid ated in child mitch (<18 years ), pregn ant women , in some racia l or ethni c subgr oups other than Cauca sians and Afric an Ameri cans. Not Available [facility] (Centralized Electronic Ordering - All Locations) Patient Can Go To The Location Of Their Choice, 09/26/2016 14:58:33 09/26/1909/26/2016 lipid panel , serum cholesterol, total 182 mg/dL (<200) Not Available [facility] (Centralized Electronic Ordering - All Locations) Patient Can Go To The Location Of Their Choice, 09/26/2016 14:58:34 09/26/1909/26/2016 lipid panel , serum triglyceride 56 mg/dL (<150) Not Available [facility] (Central[facility] Ordering - All Locations) Patient Can Go To The Location Of Their Choice, 09/26/2016 14:58:34 09/26/1909/26/2016 lipid panel , serum HDL chol 90 mg/dL (>39) Not Available [facility] (Centralized Electronic Ordering - All Locations) Patient Can Go To The Location Of Their Choice, 09/26/2016 14:58:34 09/26/1909/26/2016 lipid panel , serum LDL cholesterol, calculated 81 mg/dL (0-130 ) Not Available [facility] (Centralized Electronic Ordering - All Locations) Patient Can Go To The Location Of Their Choice, 09/26/2016 14:58:34 09/26/1909/26/2016 lipid panel , serum non HDL cholesterol (calc) 92 mg/dL (<160) Not Available [facility] (Centralized Electronic Ordering - All Locations) Patient Can Go To The Location Of Their Choice, 09/26/2016 14:58:34 09/26/1909/26/2016 T4, free, serum free T4 2.59 NG/dL (0.70- 1.80) high Not Available [facility] (Centralized Electronic Ordering - All Locations) Patient Can Go To The Location Of Their Choice, 09/26/2016 15:07:46 09/26/19 17 09/26/2016 TSH, serum or plasm a TSH 0.16 mIU/m L (0.40- 4.00) low Not Available [facility] (Centralized Electronic Ordering - All Locations) Patient Can Go To The Location Of Their Choice, 09/26/2016 15:07:47 09/26/19 17 09/26/2016 vitam in D, 25-hy droxy , total , serum 25OH vitamin D 25.9 NG/mL (20-50 ) SERUM 25OHD : 20 TO 50 NG/ML : SUFFI CIENT IN VITAM IN D. Refer ence: [facility] Data Brief : No.59 October: Vitam in D Statu s: Unite d State s: 2000- 2005 Not Available [facility] (Centralized Electronic Ordering - All Locations) Patient Can Go To The Location Of Their Choice, 09/26/2016 23:06:52 10/30/1910/29/2016 T4, free, serum free T4 1.62 NG/dL (0.70- 1.80) Not Available [facility] (Centralized Electronic Ordering - All Locations) Patient Can Go To The Location Of Their Choice, 10/29/2016 16:45:36 10/30/19 17 10/29/2016 TSH, serum or plasm a TSH 3.43 mIU/m L (0.40- 4.00) Not Available [facility] (Centralized Electronic Ordering - All Locations) Patient Can Go To The Location Of Their Choice, 10/29/2016 16:45:37 11/12/1911/11/2017 CBC w/ auto diff WBC 6.7 K/mm3 (4.0-1 1.0) Not Available [facility] (Centralized Electronic Ordering - All Locations) Patient Can Go To The Location Of Their Choice, 11/11/2017 14:11:13 11/12/19 18 11/11/2017 CBC w/ auto diff RBC 4.80 M/mm3 (4.20- 5.40) Not Available [facility] (Centralized Electronic Ordering - All Locations) Patient Can Go To The Location Of Their Choice, 11/11/2017 14:11:13 11/12/1911/11/2017 CBC w/ auto diff HGB 14.4 gm/dL (12.0- 16.0) Not Available [facility] (Centralized Electronic Ordering - All Locations) Patient Can Go To The Location Of Their Choice, 11/11/2017 14:11:13 11/12/1911/11/2017 CBC w/ auto diff HCT 43.8 % (37.0- 47.0) Not Available [facility] (Centralized Electronic Ordering - All Locations) Patient Can Go To The Location Of Their Choice, 11/11/2017 14:11:13 11/12/1911/11/2017 CBC w/ auto diff MCV 91.3 fL (80.0- 100.0) Not Available [facility] (Centralized Electronic Ordering - All Locations) Patient Can Go To The Location Of Their Choice, 11/11/2017 14:11:13 11/12/1911/11/2017 CBC w/ auto diff MCH 30.0 pg (27.0- 34.0) Not Available [facility] (Centralized Electronic Ordering - All Locations) Patient Can Go To The Location Of Their Choice, 11/11/2017 14:11:13 11/12/1911/11/2017 CBC w/ auto diff MCHC 32.9 g/dL (33.0- 37.0) low Not Available [facility] (Centralized Electronic Ordering - All Locations) Patient Can Go To The Location Of Their Choice, 11/11/2017 14:11:13 11/12/1911/11/2017 CBC w/ auto diff plt 278 K/mm3 (150-4 60) Not Available [facility] (Centralized Electronic Ordering - All Locations) Patient Can Go To The Location Of Their Choice, 11/11/2017 14:11:13 11/12/1911/11/2017 CBC w/ auto diff RDW-SD 45.6 fL (<47.0 ) Not Available [facility] (Centralized Electronic Ordering - All Locations) Patient Can Go To The Location Of Their Choice, 11/11/2017 14:11:13 11/12/1911/11/2017 CBC w/ auto diff MPV 11.2 fL (9.4-1 2.4) Not Available [facility] (Centralized Electronic Ordering - All Locations) Patient Can Go To The Location Of Their Choice, 11/11/2017 14:11:13 11/12/1911/11/2017 CBC w/ auto diff automated NRBC 0.0 #/100 _WBC' s Not Available [facility] (Centralized Electronic Ordering - All Locations) Patient Can Go To The Location Of Their Choice, 11/11/2017 14:11:13 11/12/1911/11/2017 CBC w/ auto diff abs. NRBC 0.0 K/mm3 Not Available [facility] (Centralized Electronic Ordering - All Locations) Patient Can Go To The Location Of Their Choice, 11/11/2017 14:11:13 11/12/1911/11/2017 CBC w/ auto diff neut # 4.1 K/mm3 (1.3-7 .0) Not Available [facility] (Centralized Electronic Ordering - All Locations) Patient Can Go To The Location Of Their Choice, 11/11/2017 14:11:13 11/12/1911/11/2017 CBC w/ auto diff lymph # 1.8 K/mm3 (0.8-3 .1) Not Available [facility] (Centralized Electronic Ordering - All Locations) Patient Can Go To The Location Of Their Choice, 11/11/2017 14:11:13 11/12/1911/11/2017 CBC w/ auto diff mono# 0.5 K/mm3 (0.4-0 .9) Not Available [facility] (Centralized Electronic Ordering - All Locations) Patient Can Go To The Location Of Their Choice, 11/11/2017 14:11:13 11/12/1911/11/2017 CBC w/ auto diff eo # 0.1 K/mm3 (0.0-0 .4) Not Available [facility] (Centralized Electronic Ordering - All Locations) Patient Can Go To The Location Of Their Choice, 11/11/2017 14:11:13 11/12/1911/11/2017 CBC w/ auto diff baso # 0.1 K/mm3 (0.0-0 .1) Not Available [facility] (Centralized Electronic Ordering - All Locations) Patient Can Go To The Location Of Their Choice, 11/11/2017 14:11:13 11/12/1911/11/2017 CBC w/ auto diff abs. imm gran 0.0 K/mm3 Not Available [facility] (Centralized [facility] Ordering - All Locations) Patient Can Go To The Location Of Their Choice, 11/11/2017 14:11:13 11/12/1911/11/2017 CBC w/ auto diff neut 62.0 % (44-76 ) Not Available [facility] (Centralized Electronic Ordering - All Locations) Patient Can Go To The Location Of Their Choice, 11/11/2017 14:11:13 11/12/1911/11/2017 CBC w/ auto diff lymph 27.5 % (15-43 ) Not Available [facility] (Centralized Electronic Ordering - All Locations) Patient Can Go To The Location Of Their Choice, 11/11/2017 14:11:13 11/12/1911/11/2017 CBC w/ auto diff monocyte 7.8 % (4.5-1 0.5) Not Available [facility] (Centralized Electronic Ordering - All Locations) Patient Can Go To The Location Of Their Choice, 11/11/2017 14:11:13 11/12/1911/11/2017 CBC w/ auto diff eo 1.2 % (0-6) Not Available [facility] (Centralized Electronic Ordering - All Locations) Patient Can Go To The Location Of Their Choice, 11/11/2017 14:11:13 11/12/1911/11/2017 CBC w/ auto diff baso 1.2 % (0-2) Not Available [facility] (Centralized Electronic Ordering - All Locations) Patient Can Go To The Location Of Their Choice, 11/11/2017 14:11:13 11/12/1911/11/2017 CBC w/ auto diff imm gran 0.3 % (0.0-0 .6) Not Available [facility] (Centralized Electronic Ordering - All Locations) Patient Can Go To The Location Of Their Choice, 11/11/2017 14:11:13 11/12/1911/11/2017 BMP, serum or plasm a glucose 92 mg/dL (70-99 ) Not Available [facility] (Centralized Electronic Ordering - All Locations) Patient Can Go To The Location Of Their Choice, 11/11/2017 16:37:29 11/12/1911/11/2017 BMP, serum or plasm a BUN 9 mg/dL (6-20) Not Available [facility] (Centralized Electronic Ordering - All Locations) Patient Can Go To The Location Of Their Choice, 11/11/2017 16:37:29 11/12/19 18 11/11/2017 BMP, serum or plasm a creatinine 0.7 mg/dL (0.5-1 .0) Not Available [facility] (Centralized Electronic Ordering - All Locations) Patient Can Go To The Location Of Their Choice, 11/11/2017 16:37:29 11/12/19 18 11/11/2017 BMP, serum or plasm a sodium 141 mmol/ L (133-1 45) Not Available [facility] (Centralized Electronic Ordering - All Locations) Patient Can Go To The Location Of Their Choice, 11/11/2017 16:37:29 11/12/19 18 11/11/2017 BMP, serum or plasm a potassium 4.6 mmol/ L (3.6-5 .2) Not Available [facility] (Centralized Electronic Ordering - All Locations) Patient Can Go To The Location Of Their Choice, 11/11/2017 16:37:29 11/12/1911/11/2017 BMP, serum or plasm a chloride 104 mmol/ L (98-10 7) Not Available [facility] (Centralized Electronic Ordering - All Locations) Patient Can Go To The Location Of Their Choice, 11/11/2017 16:37:29 11/12/19 18 11/11/2017 BMP, serum or plasm a bicarbonate 25 mmol/ L (22-29 ) Not Available [facility] (Centralized Electronic Ordering - All Locations) Patient Can Go To The Location Of Their Choice, 11/11/2017 16:37:29 11/12/19 18 11/11/2017 BMP, serum or plasm a anion gap 12 (4-17) Not Available [facility] ([facility]ized Electronic Ordering - All Locations) Patient Can Go To The Location Of Their Choice, 11/11/2017 16:37:29 11/12/19 18 11/11/2017 BMP, serum or plasm a calcium 9.3 mg/dL (8.6-1 0.5) Not Available [facility] (Centralized Electronic Ordering - All Locations) Patient Can Go To The Location Of Their Choice, 11/11/2017 16:37:29 11/12/19 18 11/11/2017 BMP, serum [...] [employer]. Not Available [facility] (Centralized Electronic Ordering - All Locations) Patient Can Go To The Location Of Their Choice, 11/11/2017 16:37:29 11/12/19 18 11/11/2017 BMP, serum [...] [employer]. Not Available [facility] (Centralized Electronic Ordering - All Locations) Patient Can Go To The Location Of Their Choice, 11/11/2017 16:37:29 11/12/1911/11/2017 TSH, serum or plasm a TSH 1.56 mIU/m L (0.40- 4.00) Not Available [facility] (Centralized Electronic Ordering - All Locations) Patient Can Go To The Location Of Their Choice, 11/11/2017 16:47:20 11/12/19 18 11/11/2017 vitam in D, 25-hy droxy , total , serum 25OH vitamin D 23.0 NG/mL (20-50 ) Serum 25OHD : 20 to 50 ng/mL : suffi cient in vitam in D. Refer ence: [facility] Data Brief : No.59 October: Vitam in D Statu s: Unite d State s: 2000- 2005 As of , Vitam in D, 25-Hy droxy assay has been virk ed. In some [facility], the new assay may yield a highe r value (up to 15% incre ase) in sg rison to the old assay . These incre ases would mainl y be notic eable at value s of great er than 50 ng/ml . Not Available [facility] (Centralized Electronic Ordering - All Locations) Patient Can Go To The Location Of Their Choice, [id number] 11/11/2017 17:24:40 11/12/19 18 11/11/2017 elham díaz remov al (PROC ) done by Amie Not Available In-Office Order Internal Use Only DO Not Attach Compendium DO Not Attach Compendium, Do Not Delete/merge, [id number] 11/11/2017 09:19:54 09/16/19 17 07/19/2016 MAMMevelio Andres, bilat eral No observ ation record ed. [email or web address] Not Available 2016 11:21:16 07/23/20 17 07/21/2017 MAMMevelio Andres, digit al, bilat eral No observ ation record ed. [facility] ([facility]) [address] [facility] [facility], [place], [address], 07/25/2017 14:10:22 Result Notes None recorded. Problems Name Problem SNOMED Code Status Onset Date Resolution Date Notes Provider Name and Address Organization Details Recorded Time Hypothyroid ism 02755239 Active 2016 DIDIER Osorio [address], [facility] [place], [address] , [facility] 7 09:29:01 Lateral epicondylit is 747309541 Active 2016 Amie graf MA null, [facility] 7 10:24:00 Greater trochanteri c pain syndrome 3993791 Completed 201610/02/2016 [facility] 10:[facility] Problem Notes None recorded. Procedures Surgical History Date Name Laterality Status Provider Name and Address Organization Details Recorded Time 07/21/20 17 Most Recent Mammogram completed Wade Gant [facility] 07/25/2017 14:10:17 07/21/20 17 Mammogram screening completed Wade Gant [facility] 07/25/2017 14:10:05 10/03/19 17 Corticosteroid Injection completed Hardeep Figueroa MD [address], [address], [facility] 10/02/2016 11:06:17 02/24/20 15 Date of Last Pap Smear completed Amie duvall MA [facility] 11/11/2017 08:51:07 10/03/19 13 Cholecystectomy completed Amie duvall MA [facility] 10/02/2016 10:34:47 Dxa bone density mohsen vrt fx completed Amie duvall MA [facility] 11/11/2017 08:49:12 Colonoscopy completed Amie duvall MA [facility] 11/11/2017 08:49:21 Imaging Results None recorded. Procedure Notes None recorded. Medical Equipment None [...] in Arterial blood by Pulse oximetry Systolic And Diastolic Provider Name and Address Organization Details Last Updated DateTime 7 28825.4 2 g 157.48 cm 23.6 kg/m2 98.6 [degF] 90 /min 98 % 98 % 111/74 mm[Hg] Elizabeth Chapa MA [facility] 7 09:14:17 Date Recorded Body height Oxygen saturation Oxygen saturation in Arterial blood by Pulse oximetry Heart rate Body temperature Body weight Body mass index (BMI) Systolic And Diastolic Provider Name and Address Organization Details Last Updated DateTime 7 157.48 cm 100 % 100 % 77 /min 98.4 [degF] 14543.6 g 24 kg/m2 96/62 mm[Hg] Amie graf MA [facility] 7 10:28:14 Date Recorded Oxygen saturation Oxygen saturation in Arterial blood by Pulse oximetry Heart rate Body temperature Body weight Body mass index (BMI) Body height Systolic And Diastolic Provider Name and Address Organization Details Last Updated DateTime 8 99 % 99 % 77 /min 98.4 [degF] 60667.6 g 24 kg/m2 157.48 cm 90/64 mm[Hg] Amie graf MA [facility] 8 08:55:20 Social History Question Answer Notes LastModified by Organizat ion Details LastModified Time Tobacco Smoking Status [facility]2016 09:08:03 Do You Have An Advance Directive? Yes HCP Signed 09/26/2016 Information not available 09/26/2016 Is Blood Transfusion Acceptable In An Emergency? Yes Information not available 09/26/2016 What Is Your Level Of Caffeine Consumption? Moderate Coffee 1 Cup Daily Information not available 09/26/2016 How Much Tobacco Do You Chew? None Information not available 10/02/2016 What Type Of Diet Are You Following? REGULAR Information not available 09/26/2016 Which Illicit Or Recreational Drugs Have You Used? None Information not available 09/26/2016 Live Alone Or With Others? With Others (Ángel de leon), Daughter Information not available 09/26/2016 Do You [...] Functional Status Question Answer Note LastModified by Organizat ion Details LastModified Time What is your level of alcohol consumption? Occasional Information not available 09/26/2016 Are you currently employed? Yes Information not available 09/26/2016 Are you able to care for yourself? 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 [...] Immunizations Vaccine Type Date Status Note Provider Johan sandhu and Address Organization Details Recorded Time Hep B, adult 0 completed Kadi Dai deisy [facility] 09/16/2016 11:49:53 Tdap 0 completed Kadi Suhas olivas, [facility] 09/16/2016 11:50:01 Influenza, split virus, quadrivalent , PF 8 cancelled patient objection Not Available [facility] 08/21/2019 02:22:08 Past Encounters Encounter ID Performer Location Encounter Start Date Encounter Closed Date Diagnosis/Indication Diagnosis SNOMED-CT Code Diagnosis ICD10 Code Diagnosis Note [id number] DIDIER Osorio Main Office [address] [facility] [address] [facility] [address] 09/26/2016 08:52:20 09/26/2016 10:20:06 Adult health examination 867658220 Z00.00 UTD on pap and mammo, will check blood work Hypothyroidism 10068526 E03.9 Hyperlipidemia 25891210 E78.5 Fatigue 75922302 R53.83 Shoulder joint pain 2679 93492 M25.519 Pain of erika int of elbow 345770194 M25.529 Greater tr ochanteric pain syndrome 6071589 M70.62 [id number] Hardeep Figueroa MD Main Office [address] [facility] [address] [facility] [place] [address] 10/02/2016 10:12:52 10/02/2016 11:04:55 Lateral epicondylitis 049989893 M77.11 [id number] DIDIER Osorio Main Office [address] [facility] [address] [facility] [place] [address] 11/11/2017 08:39:41 11/11/2017 09:27:14 Hypothyroidism 80556665 E03.9 will recheck labs. Immunization refused 275 319442 Z28.21 Fatigue 50345220 R53.83 c/o fatigue x 2 weeks. med dosing was changed lasy year and had been doing well. Impacted cerumen 5282716 6 H61.22 lavage left. Health Concerns Section Related Observation LastModified by Organization Detai ls LastModified Time None Recorded Concern Status LastModified by Organization Details LastModified Time None Recorded Advance Directives Directive Y: HCP signed 09/26/2016 Payers Insurance Date Sequence Insurance Name Policy Number Policy Dockery Covered Member ID Dockery Member ID Guarantor Name 12/22/2017 1 UNSPECIFIED REMIT PAYOR Tay Rodriguez 12/22/2017 1 UNSPECIFIED REMIT PAYOR Tay Rodriguez 05/11/2019 1 [facility]: BLUE CARE ELECT (PPO) [id number] Tay Rodriguez [id number] Tay Rodriguez 07/30/2016 1 [facility] [id number] Sujeyanabella Rodriguez [id number] Tay Rodriguez Notes Date Note Type Note [...] hypothyroid, last checked last March 2016. Verónica olivas [facility] 09/26/2016 12:56:40 10/02/2016 text/html Musculoskeletal PainReported bypatient.Location:rig ht elbow Quality:aching;dull Severity:same Duration:present for 1-6 months Timing:constant; pain at night; gradual Context:no obvious trauma or overuse Associated Symptoms:no fever; no weak limbs; no tingling ADL (Activities of Daily Living)improve with medication (started meloxicam with some improvement) Hardeep Figueroa MD [address], [address], [facility] 10/02/2016 11:08:21 11/11/2017 text/html Generic HPI TemplateReported bypatient.Notes:Presen ts for recheck of thyroid symptoms, feeling more tired in the last couple of weeks. does note some discomfort in her chest intermittently- tightness. denies constipation, diarrhea, sometimes feels thirsty. does not drink enough. No MVI. Josue olivas, [facility] 11/11/2017 09:56:48 OBGyn Episode No OBEpisode recorded.
[2025-02-03 13:40] VITALS: BP 132/80; PULSE 82; TEMP 37; O2SAT 98; BMI 24.1
--- NOTE | 2025-02-03 13:40 | AM.OFFWIN_ITS ---
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 - She has pain in the right wrist, elbow , and shoulder. - She describes that pain as an aching p ain and it is constant. - The pain began approximately a week ag o, worsening significantly over the past three days. - The pain is constant, not alleviated b y rest or reduced activity, and meloxicam has provided some relief. - No numbness or tingling is present. - Past medical history includes joint is sues with sacroiliac joint injection, elbow bursitis, and shoulder surgery for instability. - She does not have trauma or overuse of her computer. - She denies hand numbness, waking up wi th numbness, tingling, shoulder pain. - Has history of joint pain. Physical Exam General: Cooperative, healthy appearing, comfortable, no acute distress and well developed Orientation: Patient oriented x3 Respiratory: Normal respiratory effort and able to speak in complete sentences. Clear to auscultation bilaterally. No w/r/r noted Cardiovascular: Regular rate and rhythm. Normal S1 and S2. No m/r/g noted. Skin: No rashes or lesions noted Neuro: Sensation is intact. Extremities: FROM of the right shoulder, elbow, and wrist. Supination and pronation is intact, Hand backpackers manager is intact and good strength. No TTP of the upper arm or forearm. TTP of the medial epicondyle. TTP of the medial ulna styloid. Negative Finklesteins, negative tinel's and phalen's noted. Negative prayer test. Patient was informed and verbally consented to the use of an ambient scribe for clinic note documentation during this visit. [facility] Medical History History of herpes zoster History of adenomatous polyp of colon Actinic keratosis History of diverticulitis Vitamin D deficiency Acute anxiety Sacroiliac joint dysfunction of left side Acquired hypothyroidism Adenomyosis Surgical History History of arthroscopic surgery of shoulder Hx of colonoscopy Hx of cholecystectomy Family History Father Unknown family medical history Substance use disorder Mother CVD (cardiovascular disease) Brother Melanoma Substance use disorder Daughter No problems noted. 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 Current occupational exposures/hazards: No Cognitive needs: No Hearing needs: No Vision needs: Yes Review of Systems Const All systems reviewed & are unremarkable except as noted in HPI and below Physical Exam Vital Signs: Last Vital Signs Temp 98.6 F 02/03/25 13:40 Pulse 82 02/03/25 13:40 BP 132/80 02/03/25 13:40 Pulse Ox 98 02/03/25 13:40 Oxygen Delivery Method Room Air 02/03/25 13:40 BMI result Body Mass Index 24.1 Assessment & Plan Assessment & Plan (1) Arm pain, right: Code(s): M79.601 - Pain in right arm Plan Most likely arthritis vs tendonitis vs bursitis Plan - Rest, ice or heat to the area - Activities as tolerated - Start naproxen 500 mg twice daily for pain relief. - Obtain x-rays of the wrist and elbow to evaluate for joint inflammation or arthritis. - Follow up with PCP if pain continues and can be referred to PT or ortho Patient was informed and verbally consented to the use of an ambient scribe for clinic note documentation during this visit. Orders: Orders XR wrist RT min 3V Today M79.601 - Pain in right arm XR elbow RT min 3V Today M79.601 - Pain in right arm Coding Level of Care Code Est Pt Level 4 (63814) Diagnoses Arm pain, right M79.601
== END 2025-02-03 14:51 | disposition home or self-care (01) ==
PROVIDERS: PCP Internal Medicine; Visit Provider Physician Assistant Medical
DX: M79.601 Pain in right arm (principal)

== ENCOUNTER 2025-05-12 14:56 | Outpatient (REF) | payer BC, SELFPAY ==
[2025-05-12 16:41] LABS: Blood Urea Nitrogen 11 mg/dL (9-16); Estimated Glomerular Filt Rate > 60
== END 2025-05-12 14:57 | disposition home or self-care (01) ==
LOC: HO.LAB 14:56
PROVIDERS: PCP Internal Medicine; Visit Provider Surgery
DX: K57.90 Diverticulosis of intestine, part unspecified, without perforation or abscess without bleeding (principal)
CPT/HCPCS: 36415; 82565; 84520

== ENCOUNTER 2025-05-12 14:56 | Outpatient (AMB) | payer BC, SELFPAY ==
--- NOTE | 2025-05-12 14:57 | A.OFFVIS_ITS ---
Vital Signs 05/12/25 14:57 Height 5 ft 2 in Intake Visit Reasons: diverticulitis of large intestine Intake Note: This patient was referred by Dr. Shah for an assessment for diverticulitis of large intestine. Pt c/o; 05/07/2025 had a Flare-up, on one round of Ciprofloxacin, reports minimal residual pain from flare-up , has a good appetite. Colonoscopy- 09/06/2021 Dr. Miller Stem Frazer Required: No Accompanied by: Self / Same As Patient Allergies codeine Adverse Reaction (Unknown, Verified 05/12/25 14:58) stomach upset Medication List - Last Reconciled 05/12/25 by Rafael Mcneil MD ciprofloxacin HCl 500 mg PO Q12H levothyroxine 112 mcg PO DAILY HPI HPI diverticulitis of large intestine: Details: [age] year old female referred for history of diverticulitis She says that she has known history of diverticulitis in the past. She says that she had a previous CAT scan in another institution before. She says she has had flare-ups on and off for the past few years. She says that she was on antibiotics just 2 weeks ago for a mild flare up She has good oral intake. She denies any fever or chills She had a colonoscopy in 2021 which showed diverticulosis. [facility] Medical History Diverticulosis Diverticulitis large intestine History of herpes zoster History of adenomatous polyp of colon Actinic keratosis History of diverticulitis Vitamin D deficiency Acute anxiety Sacroiliac joint dysfunction of left side Acquired hypothyroidism Adenomyosis Surgical History History of arthroscopic surgery of shoulder Hx of colonoscopy Hx of cholecystectomy Family History Father Unknown family medical history Substance use disorder Mother CVD (cardiovascular disease) Brother Melanoma Substance use disorder Daughter No problems noted. 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 Current occupational exposures/hazards: No Cognitive needs: No Hearing needs: No Vision needs: Yes Review of Systems Const Denies chills and Denies fever(s) Card Denies chest pain, Denies dyspnea and Denies dyspnea on exertion Resp Denies cough, Denies dyspnea and Denies dyspnea on exertion GI Denies hematochezia and Denies change in bowel habits Denies hematuria Musc Denies back pain and Denies limited range of motion Neuro Denies focal weakness and Denies convulsions Psych Denies depression and Denies mood swings Physical Exam Const General: comfortable and no acute distress Orientation/consciousness: patient oriented x3 Neck Neck: Yes no lymphadenopathy Resp Auscultation: clear to auscultation bilaterally Cardio Rhythm: regular rhythm GI Palpation (GI): Soft to palpation, nontender and no guarding Neuro General: patient oriented x3 Assessment & Plan Assessment & Plan (1) Diverticulosis: Code(s): K57.90 - Diverticulosis of intestine, part unspecified, without perforation or abscess without bleeding Category: Medical Plan: She states that she has had known diverticulitis in the past. She says she has had flare-ups every few months She is concerned about this and is considering definitive treatment with resection She says that she has had a CAT scan in the distant past. I will order for a repeat CAT scan as she had a recent flare up she says. She says that she does her largest studies in [facility] in [place] as her works there. She knew we will need to bring us a copy of the images can review this. I will see her again in the office after her CAT scan. She is also scheduled to have a colonoscopy this year so we will await for that as well. She is comfortable with the plan She currently has a very benign exam. Orders: Orders Blood Urea Nitrogen 05/12/25 K57.90 - Diverticulosis of intestine, part unspec ified, without perforation or abscess without bleeding Creatinine 05/12/25 K57.90 - Diverticulosis of intestine, part unspecified, without perforation or abscess without bleeding CT abdomen pelvis w IV con 05/12/25 K57.90 - Diverticulosis of intestine, part unspecified, without perforation or abscess without bleeding Coding Level of Care Code New Pt Level 3 (72083) Diagnoses Diverticulosis K57.90
== END 2025-05-12 15:16 | disposition home or self-care (01) ==
LOC: HO.HGS 14:57
PROVIDERS: PCP Internal Medicine; Visit Provider Surgery
DX: K57.90 Diverticulosis of intestine, part unspecified, without perforation or abscess without bleeding (principal)
CPT/HCPCS: 99203

== ENCOUNTER 2025-07-04 08:42 | Outpatient (AMB) | payer BC, SELFPAY ==
--- NOTE | 2025-07-04 08:53 | A.OFFPC_ITS ---
Vital Signs 07/04/25 09:13 Height 5 ft 2 in Weight 135 lb BMI 24.7 BP 110/80 Blood Pressure Location Rt brachial Position Sitting Respiration 16 Pulse 81 Pulse Source Pulse Oximeter Temp 97.7 F Temp Source Oral Pulse Oximetry (%) 99 Oxygen Delivery Method Room Air Intake Visit Reasons: Annual PE Intake Note: Pt is here today for her PE: Last mammogram 06/01/24, papsmear 07/04/20, colonoscopy 09/06/21 Audiometric Technician Required: No Allergies codeine Adverse Reaction (Unknown, Verified 07/04/25 09:49) stomach upset Medication List - Last Reconciled 07/04/25 by Corin Shah MD levothyroxine 112 mcg PO DAILY Tobacco use date assessed: 07/04/25 Dental Screening Dental Screen Date: 07/04/25 Did you have a dental visit in the last 12 months?: Yes Did you have a dental problem in the last 6 months where you did not have access to dental care?: No Was dental information given to patient?: Patient has dentist HPI Annual PE HPI Details The patient is a 55 year old individual presenting for a physical exam. The patient's only medication is levothyroxine for thyroid management, and the patient denies taking any vitamin D or multivitamins. No complaints at present time. The patient has a history of diverticulosis and has experienced four or five flare-ups this year. The patient has a follow-up appointment scheduled with Dr. Mcneil for this condition. The patient reports being diligent with diet recently and is unsure if flares are related to diet or stress. A prior colo noscopy in 2021 revealed a precancerous polyp which was removed by Dr. Miller, repeat colonoscopy due again in 2026. She reports being in perimenopause and has not had regular periods. The patient experienced a single episode of bleeding after three months of amenorrhea. The last Pap smear was in 2019, and the patient missed a scheduled appointment in May at [facility] Regarding health screenings, the patient has not had a mammogram this year and is uncertain if a follow-up appointment has been scheduled. The patient has not had a bone density scan and denies any history of fractures. For immunizations, the patient has received the COVID vaccine but declines the flu shot and has not had the shingles vaccine. [facility] Medical History Recurrent diverticulitis Diverticulosis Diverticulitis large intestine History of herpes zoster History of adenomatous polyp of colon Actinic keratosis History of diverticulitis Vitamin D deficiency Acute anxiety Sacroiliac joint dysfunction of left side Acquired hypothyroidism Adenomyosis Surgical History History of arthroscopic surgery of shoulder Hx of colonoscopy Hx of cholecystectomy Family History Father Unknown family medical history Substance use disorder Mother CVD (cardiovascular disease) Brother Melanoma Substance use disorder Daughter No problems noted. 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 1. Little interest or pleasure in doing things: not at all 2. Feeling down, depressed, or hopeless: not at all 3. Trouble falling or staying asleep, or sleeping too much: several days 4. Feeling tired or having little energy: several days 5. Poor appetite or overeating: not at all 6. Feeling bad about yourself - or that you are a failure or have let yourself or your family down: not at all 7. Trouble concentrating on things, such as reading the newspaper or watching television: not at all 8. Moving or speaking so slowly that other people could have noticed. Or the opposite - being so fidgety or restless that you have been moving around a lot more than usual: not at all 9. Thoughts that you would be better off or of hurting yourself in some way: not at all Total score: 2 Depression Screening Interpretation: Negative Depression Screening Done: Yes Source: Developed by Drs. Christian Aden, VickyDayton Yousif and colleagues, with an educational harjeet from [employer]. Thrive Questionnaire Date Thrive assessed: 09/10/24 I am a: Patient What is your living situation today?: I have a steady place to live Within the past 12 months, did the food you bought not last and you didn't have the money to get more?: Never true Within the past 12 months, did you worry whether your food would run out before you got money to buy more?: Never true Do you have trouble paying for medicines?: No Do you have trouble getting transportation to medical appointments?: No Do you have trouble paying your heating and electricity bill?: No Do you have trouble taking care of your child, family member or friend?: No Do you have trouble with day-to-day activities such as bathing, preparing meals, shopping, managing finances, etc.?: No Are you currently unemployed and looking for a job?: No Are you interested in more education?: No Please select the resources that you would like help with: None Currently or been in a relationship where the following occur: No concerns reported THRIVE Score: 0 AUDIT C Alcohol Use Questionnaire (AUDIT-C) 1. How often do you have a drink containing alcohol?: Monthly or less Total Score: 1 LOGAN-7 AMB Questionnaire LOGAN-7 Date LOGAN - 7 assessed: 09/10/24 Feeling nervous, anxious, or on edge: 1 = Several days Not being able to stop or control worryin = Not at all Worrying too much about different things: 0 = Not at all Trouble relaxin = Not at all Being so restless that it is hard to sit still: 0 = Not at all Becoming easily annoyed or irritable: 0 = Not at all Feeling afraid as if something awful might happen: 0 = Not at all Total LOGAN-7 score (0-4 normal; 5-9 mild; 10-14 moderate; 15-21 severe): 1 Source: Developed by Drs. Christian Aden, Dayton Parra and colleagues, with an educational harjeet from [employer]. Review of Systems Const Reports no additional complaints Eyes Reports no additional complaints ENT Reports no additional complaints and Reports Normal hearing present Card Denies chest pain, Denies dyspnea and Denies dyspnea on exertion Resp Denies cough, Denies dyspnea and Denies dyspnea on exertion GI Denies abdominal pain, Denies melena, Denies hematochezia, Denies change in bowel habits and Denies heartburn Details: goes to [facility] Reports abnormal menses (Irregular) and Denies hematuria Musc Denies back pain and Denies limited range of motion Skin/Breast Denies breast pain, Denies breast mass and Denies rash Neuro Reports Normal hearing present, Denies focal weakness, Denies convulsions and Denies Sensory deficit (Neuro) Psych Denies depression and Denies mood swings Endo Reports no additional complaints Jim/Lymph Reports no additional complaints Aller/Immun Reports no additional complaints Physical exam (Primary Care) Vital Signs: Last Vital Signs Temp 97.7 F 07/04/25 09:13 Pulse 81 07/04/25 09:13 Resp 16 07/04/25 09:13 BP 110/80 07/04/25 09:13 Pulse Ox 99 07/04/25 09:13 Oxygen Delivery Method Room Air 07/04/25 09:13 BMI result Body Mass Index 24.7 Tobacco/Smoking Status: Tobacco use Status Tobacco use date assessed 07/04/25 07/04/25 08:57 Patient Tobacco Use Status Never used Tobacco 07/04/25 08:57 e-Cigarette/Vaping Use Never Used 07/04/25 08:57 PHQ-9: PHQ-9 Score PHQ-9: Total score 2 07/04/25 10:04 Depression Screening Interpretation: Negative Thrive Assessment: Date of Thrive Assessment Date Thrive assessed 09/10/24 07/04/25 09:12 Currently or been in a relationship where the following occur: No concerns reported Const General: healthy appearing, no acute distress and alert Limitations: no limitations [facility] Head: Yes normocephalic Face and sinus: Yes face symmetric Mouth: Normal oral and palatal mucosa present, oropharynx normal and moist mucous membranes Eyes Conjunctivae: conjunctivae normal Sclerae: sclerae normal Pupils: Equal, round and reactive pupils present EOM: EOMs intact bilaterally Neck Neck: Yes full ROM and Yes no lymphadenopathy Thyroid: Thyroid normal Lymphatic: no lymphadenopathy noted Chest Breast/axilla inspection: normal inspection of the breasts Breast/axilla palpation: normal palpation of the breasts Resp Effort & Inspection: normal respiratory effort and able to speak in complete sentences Auscultation: clear to auscultation bilaterally Cardio Jugular venous distension: no JVD Rate: regular rate Rhythm: regular rhythm Heart sounds: S1 normal heart sound present and S2 normal heart sound present GI Inspection: Yes normal to inspection Palpation (GI): Soft to palpation Auscultation: normal bowel sounds General: Yes no CVA tenderness Back/Spine/Pelvis Back: no CVA tenderness and No back tenderness Skin General skin exam: no rashes or lesions noted Neuro Cranial nerves: Yes Equal, round and reactive pupils present and Yes Normal hearing present Sensory Exam: No Sensory deficit (Neuro) Extrem General: Yes normal to inspection, Yes full ROM, Yes no pedal edema and Yes normal gait Psych Appearance: grossly normal and well kempt Mental Status: mental status grossly normal Speech and movement: Normal speech and movement present Affect: normal affect Results Reviewed Results Reviewed: Name: Sujey Rodriguez Age/Sex: 54/F : 1970 Unit#: [id number] Attend Dr: Corin Shah MD Re09/17/24 Status: DEP REF Location: [facility] Disch: SPEC : [id number] ANDRES: 09/17/24 STATUS: COMP REQ : [id number] RECD: 09/17/[address]: Corin Shah MD COMP: 09/17/24 ENTERED: 09/17/24 [facility] DR: ORDERED: CBC Auto Diff Test Result Flag Reference WBC 5.9 4.8-10.8 X10*3/uL RBC 4.75 4.20-5.50 X10*6/uL HGB 14.0 12.0-16.0 g/dl HCT 43.0 37.0-47.0 % MCV 90.5 80.0-98.0 fL MCH 29.5 27.0-33.0 pg MCHC 32.6 31.0-35.0 g/dl RDW 12.3 11.0-16.0 % PLT 283 160-400 X10*3/uL MPV 10.4 9.4-12.3 fL Neut Pct Auto 49.7 45-73 % ImGran Pct Auto 0.3 0.0-0.4 % Lymp Pct Auto 36.6 20-40 % Roseau Pct Auto 8.5 2-11 % Eos Pct Auto 3.2 0-4 % Baso Pct Auto 1.7 0-2 % NRBC Pct Auto 0.0 0.0-0.2 /100WBC ANC Neut Abs # 2.9 2.0-8.3 x10*3/uL ImGran Abs Auto 0.02 0.00-0.03 X10*3/uL Lymph Abs Auto 2.2 1.2-4.9 X10*3/uL Roseau Abs Auto 0.5 0.1-1.2 X10*3/uL Eos Abs Auto 0.2 0.0-0.4 X10*3/uL Baso Abs Auto 0.1 0.0-0.2 X10*3/uL NRBC Abs Auto 0.000 0.0-0.012 X10*3/uL Coding Level of Care Code Est Pt Prev Care 40-64y(38840) Diagnoses Annual visit for general adult medical examination with abnormal findings Z00. Adenomyosis N80.0 Acquired hypothyroidism E03.9 Actinic keratosis L57.0 History of adenomatous polyp of colon Z86.010 Recurrent diverticulitis K57.92 Assessment & Plan Assessment & Plan (1) Annual visit for general adult medical examination with abnormal findings: Code(s): Z00.01 - Encounter for general adult medical examination with abnormal findings Plan: Will check appropriate labs. Recommended dental visit every 6 months and regular eye exams, at least every 2 years. Take adequate calcium in diet and vitamin-D 3 at 2000 IU per cap once a day, in addition to weight-bearing exercises to help maintain good muscle tone and weight control. Instructed to do self-breast exam, and continue to get yearly mammogram, currently goes to [facility].. Up-to-date with her cervical cancer screening, goes to [email or web address] in [place]. Declines flu vaccine, up-to-date with her Tdap and shingles vaccination (2) Adenomyosis: Comment: By her OBGYN- [facility] in [facility] Code(s): N80.0 - Endometriosis of uterus Category: Medical Plan: Sees OBGYN at [facility] (3) Acquired hypothyroidism: Code(s): E03.9 - Hypothyroidism, unspecified Category: Medical Plan: Will check free T4 TSH and free T3, currently on levothyroxine 112 mcg daily (4) Actinic keratosis: Comment: ff'd at [facility] Code(s): L57.0 - Actinic keratosis Category: Medical Plan: Followed at [facility] (5) History of adenomatous polyp of colon: Code(s): Z86.010 - Personal history of colon polyps Category: Medical Plan: Last colonoscopy was done by Dr. Miller in 2021, repeat due again in 2026 (6) Recurrent diverticulitis: Code(s): K57.92 - Diverticulitis of intestine, part unspecified, without perforation or abscess without bleeding Category: Medical Plan: Currently followed by Dr. Mcneil, has an upcoming appointment to discuss results of CT abdomen/pelvis results Orders: Orders Free T4 (Free Thyroxine) 07/04/25 E03.9 - Hypothyroidism, unspecified, K57.92 - Diverticulitis of intestine, part unspecified, without perforation or abscess without bleeding, L57.0 - Actinic keratosis, N80.0 - Endometriosis of uterus, Z00.01 - Encounter for general adult medical examination with abnormal findings, Z86.010 - Personal history of colon polyps, Z86.39 - Personal history of other endocrine, nutritional and metabolic disease Complete Blood Count Auto Diff 07/04/25 E03.9 - Hypothyroidism, unspecified, K57.92 - Diverticulitis of intestine, part unspecified, without perforation or abscess without bleeding, L57.0 - Actinic keratosis, N80.0 - Endometriosis of uterus, Z00.01 - Encounter for general adult medical examination with abnormal findings, Z86.010 - Personal history of colon polyps, Z86.39 - Personal history of other endocrine, nutritional and metabolic disease Aspartate Amino Transferase 07/04/25 E03.9 - Hypothyroidism, unspecified, K57.92 - Diverticulitis of intestine, part unspecified, without perforation or abscess without bleeding, L57.0 - Actinic keratosis, N80.0 - Endometriosis of uterus, Z00.01 - Encounter for general adult medical examination with abnormal findings, Z86.010 - Personal history of colon polyps, Z86.39 - Personal history of other endocrine, nutritional and metabolic disease Alanine Aminotransferase 07/04/25 E03.9 - Hypothyroidism, unspecified, K57.92 - Diverticulitis of intestine, part unspecified, without perforation or abscess without bleeding, L57.0 - Actinic keratosis, N80.0 - Endometriosis of uterus, Z00.01 - Encounter for general adult medical examination with abnormal findings, Z86.010 - Personal history of colon polyps, Z86.39 - Personal history of other endocrine, nutritional and metabolic disease Thyroid Stimulating Hormone 07/04/25 E03.9 - Hypothyroidism, unspecified, K57.92 - Diverticulitis of intestine, part unspecified, without perforation or abscess without bleeding, L57.0 - Actinic keratosis, N80.0 - Endometriosis of uterus, Z00.01 - Encounter for general adult medical examination with abnormal findings, Z86.010 - Personal history of colon polyps, Z86.39 - Personal history of other endocrine, nutritional and metabolic disease Basic Metabolic Panel Fasting 07/04/25 E03.9 - Hypothyroidism, unspecified, K57.92 - Diverticulitis of intestine, part unspecified, without perforation or abscess without bleeding, L57.0 - Actinic keratosis, N80.0 - Endometriosis of uterus, Z00.01 - Encounter for general adult medical examination with abnormal findings, Z86.010 - Personal history of colon polyps, Z86.39 - Personal history of other endocrine, nutritional and metabolic disease Vitamin D 25-OH Total 07/04/25 E03.9 - Hypothyroidism, unspecified, K57.92 - Diverticulitis of intestine, part unspecified, without perforation or abscess without bleeding, L57.0 - Actinic keratosis, N80.0 - Endometriosis of uterus, Z00.01 - Encounter for general adult medical examination with abnormal findings, Z86.010 - Personal history of colon polyps, Z86.39 - Personal history of other endocrine, nutritional and metabolic disease Lipid Panel 07/04/25 E03.9 - Hypothyroidism, unspecified, K57.92 - Diverticulitis of intestine, part unspecified, without perforation or abscess without bleeding, L57.0 - Actinic keratosis, N80.0 - Endometriosis of uterus, Z00.01 - Encounter for general adult medical examination with abnormal findings, Z86.010 - Personal history of colon polyps, Z86.39 - Personal history of other endocrine, nutritional and metabolic disease
[2025-07-04 09:13] VITALS: BP 110/80; PULSE 81; RESP 16; TEMP 36.5; O2SAT 99; BMI 24.7
--- OUTSIDE RECORDS SUMMARY | 2025-07-04 09:21 | XMS_ITS | Clinical Summary ---
Author Organization [facility] Address [address] [place] [address] Phone Care Team Providers Care Technical Sales Representative Name Role Phone Unavailable Primary Care Provider [...] Health Maintenance Due Date Last Done Comments Colorectal Cancer Screening: Colonoscopy 1970 Cervical Cancer Screening: Pap Smear 1990 Hepatitis B Vaccines (2 of 3 - 19+ 3-dose series) 07/25/2010 06/27/2010 Pneumococcal Vaccine: 50+ Years (1 of 1 - PCV) 2019 Zoster Vaccines (1 of 2) 2019 DTaP,Tdap,and Td Vaccines (2 - Td or Tdap) 06/06/2020 06/06/2010 HIV Screening 07/13/2022 Hepatitis C Screening 07/13/2022 Social Influencers of Health Screening 07/13/2022 Depression Screening 08/04/2024 COVID-19 Vaccine (1 - season) 2025 Influenza Vaccine (#1) 2025 Breast Cancer Screening 06/01/2026 06/01/20 24, 09/24/2022, 05/08/2021, Additional history exists RSV Immunization Adult Patients (1 - 1-dose 75+ series) 01/13/2044 HIB Vaccines Aged Out No longer eligi [...] age to complete this topic Meningococcal B Vaccine Aged Out No l onger eligible based on patient's age to complete [...] PM EDT Narrative 06/01/2024 3:26 PM EDT [facility] Diagnostic Imaging Department [address] [place] [id number] Patient: SUJEY MCCORD /Age/Sex: 1970 - 54 - F Unit#: [id number] [facility] CLI Mnemonic/Ordering Site: [facility] Ordering Physician: SEVEN SOLARES MD Ashley Screening Digital - 06/01/24 - 1421 Report Status:Signed EXAM: SCREENING MAMMOGRAPHY, BILATERAL HISTORY: SCREENING. No additional history. COMPARISON: 09/24/2022, 05/08/2021, 04/27/2020, 07/21/2017 TECHNIQUE: Synthesized CC and MLO projections of each breast. Tomosynthesis of each breast in the CC and MLO projections. 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 TISSUE DENSITY: The breasts are heterogeneously dense, which may obscure small masses. (BI-RADS category C) FINDINGS: RIGHT BREAST: No suspicious mass. No suspicious calcification. No distortion. No additional suspicious right breast findings No suspicious change in the region of the biopsy site marker. LEFT BREAST: No suspicious mass. No suspicious calcification. No distortion. No additional suspicious left breast findings IMPRESSION: [...] Suzanne UMANA BRET MD Dic Date/Time: 06/01/24 5770 Sign date/Time: 06/01/24 1526 Procedure Note Iraj Umana MD - 06/05/2024 [facility] Diagnostic Imaging Department [address] [place] [address] [id number] Patient: SURISUJEY./Age/Sex: 1970 - 54 - F Unit#: [id number] Location/Status: [facility] CLI Mnemonic/Ordering Site: [facility] Ordering Physician: SEVEN SOLARES MD Ashley Screening Digital - 06/01/24 - 6971 Report Status:Signed EXAM: SCREENING MAMMOGRAPHY, BILATERAL HISTORY: SCREENING. No additional history. COMPARISON: 09/24/2022, 05/08/2021, 04/27/2020, 07/21/2017 TECHNIQUE: Synthesized CC and MLO projections of each breast.Tomosynthesis of each breast in the CC and MLO projections. 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 TISSUE DENSITY: The breasts are [...]
--- OUTSIDE RECORDS SUMMARY | 2025-07-04 09:21 | XMS_ITS | Data Portability ---
Author Organization 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 Name Role Phone CAROLA KEITHPAO Primary Care Provider KINGSTON BAUTISTA Neuropsychologist [phone] KINGSTON BAUTISTA Stock Puller Assessment Encounter Date Assessment Date Assessment LastModified [...] or plasma 2017 018 JASMINA [facility], [address], [place], [address], 8 16:47:20 vitami n D, 25-hyd leonard, total, serum 2017 018 JASMINA [facility], [address], [place], [address], 8 17:24:40 CBC w/ auto diff 2017 018 JASMINA [facility], [address], [place], [address], 8 14:11:13 BMP, serum or plasma 2017 018 AJSMINA [facility], [address], [place], [place], [address], 8 16:37:29 lipid panel, serum 2016 017 JASMINA [facility], [address], [place], [address], 7 14:58:34 CMP, serum or plasma 2016 017 JASMINA [facility], [address], [place], [address], 7 14:58:33 vitami n D, 25-hyd leonard, total, serum 2016 017 JASMINA [facility], [address], [place], [place], [address], 7 23:06:52 CBC w/ auto diff 2016 017 JASMINA [facility], [address], [place], [address], 7 14:23:51 TSH, serum or plasma 2016 017 JASMINA [facility], [address], [place], [place], [address], 7 15:07:47 T4, free, serum 2016 017 JASMINA [facility], [address], [place], [address], 7 15:07:46 Referral physic al therap ist referr al - left hip pain, hx bursit is. 2016 017 zulema [facility], [address] [place] [address], [address], 7 11:48:01 physic al therap y should er referr al - hx left should er disloc ations X 2, feelin g left should er instab ility, worse with specif ic moveme nts, needs streng thenin g 2016 017 [facility], [address] [place] [address], [address], 7 11:48:00 physic al therap ist referr al - right elbow latera l epicon dyliti s, pain, tender ness 2016 017 [facility], [address] [place] [address], [address], 7 11:48:02 Procedures cerume n remova l (PROC) 2017 018 JASMINA In-Office Order, Internal Use Only DO Not Attach Compendium DO Not Attach Compendium, Do Not Delete/merge, [id number] 8 09:38:11 Surgeries None record ed. Imaging None record ed. Medication Orders meloxi cam 7.5 mg tablet 2016 017 [id number], [address] [place], [place], [id number], 8 08:53:03 Patient TargetsNo targets recorded. Patient Instructions Encounter Date Encounter Id Patient Instructions Last Modified By Organization Details Last Modified Time 09/26/2016 [id number] shoulder stretches: exercises [email or web address] Not available 09/26/2016 [...] medication. [email or web address] Not available 09/26/2016 12:56:26 10/02/2016 [id number] tennis elbow: care instructions [email or web address] Not available 10/02/2016 11:04:44 11/11/2017 [id number] call or return for worsening or concerns. [email or web address] Not available 11/11/2017 09:17:22 I have reviewed the note and agree with the assessment and plan of care. [email or web address] Not available 11/11/2017 09:56:19 Reason for Referral hx left shoulder dislocation s X 2, feeling left shoulder instability, worse with specific movements, needs strengthening Referring Physician: Suly [facility], Encounter Date: 09/26/2016 left hip pain, hx bursitis. Referring Physician: Suly [facility], Encounter Date: 09/26/2016 right elbow lateral epicondy litis, pain, tenderness Referring Physician: Suly [facility], Encounter Date: 09/26/2016 Results Created [...] CIENT IN VITAM IN D. Refer ence: [facility] Data Brief : No.59 October: Vitam in [...] cient in vitam in D. Refer ence: [facility] Data Brief : No.59 October: Vitam in D Statu s: Unite d State s: 2000- 2005 As of , Vitam in D, 25-Hy droxy assay has been virk ed. In some [facility] [place], the new assay may yield a highe r value (up to 15% incre ase) in sg rison to the old assay . These incre ases would mainl y be notic eable at value s of great er than 50 ng/ml . Not Available [facility] (Centralized Electronic Ordering - All Locations) Patient Can Go To The Location Of Their Choice, [id number] 11/11/2017 17:24:40 11/12/19 18 11/11/2017 elham díaz remov al (PROC ) done by Amie Not Available In-Office Order Internal Use Only DO Not Attach Compendium DO Not Attach Compendium, Do Not Delete/merge, [id number] 11/11/2017 09:19:54 09/16/19 17 07/19/2016 MAMMevelio Andres, bilat eral No observ ation record ed. [email or web address] Not Available 2016 11:21:16 07/23/20 17 07/21/2017 MAMMevelio Andres, digit al, bilat eral No observ ation record ed. [facility] ([facility]) [address] [facility], [place], [address], 07/25/2017 14:10:22 Result Notes None recorded. Problems Name Problem SNOMED Code Status Onset Date Resolution Date Notes Provider Name and Address Organization Details Recorded Time Hypothyroid ism 45124692 Active 2016 DIDIER Osorio [address] [facility] [address], [facility] [place], [address] , [facility] 7 09:29:01 Lateral epicondylit is 759001450 Active 2016 [facility] [place] null, [facility] 7 10:24:00 Greater trochanteri c pain syndrome 4385983 Completed 201610/02/2016 [facility] 10:26:31 Problem Notes None recorded. Procedures Surgical History Date Name Laterality Status Provider Name and Address Organization Details Recorded Time 07/21/20 17 Most Recent Mammogram completed Wade Gant [facility] 07/25/2017 14:10:17 07/21/20 17 Mammogram screening completed Wade Gant [facility] 07/25/2017 14:10:05 10/03/19 17 Corticosteroid Injection completed Hardeep Figueroa MD [address] [address], [place], [address], [facility] 10/02/2016 11:06:17 02/24/20 15 Date of Last Pap Smear completed mAie duvall [place] [facility] 11/11/2017 08:51:07 10/03/19 13 Cholecystectomy completed Amie duvall MA [facility] 10/02/2016 10:34:47 Dxa bone density mohsen vrt fx completed Amie duvall MA [facility] 11/11/2017 08:49:12 Colonoscopy completed Amie duvall MA [facility] 11/11/2017 08:49:21 Imaging Results None recorded. Procedure [...] (BMI) Body temperature Heart rate Oxygen saturation Systolic And Diastolic Provider Name and Address Organization Details Last Updated DateTime 7 91457.4 2 g 157.48 cm 23.6 kg/m2 98.6 [degF] 90 /min 98 % 111/74 mm[Hg] Elizabeth Chapa MA [facility] 7 09:14:17 Date Recorded Body height Oxygen saturation Heart rate Body temperature Body weight Body mass index (BMI) Systolic And Diastolic Provider Name and Address Organization Details Last Updated DateTime 7 157.48 cm 100 % 77 /min 98.4 [degF] 78701.6 g 24 kg/m2 96/62 mm[Hg] Amie graf MA [facility] 7 10:28:14 Date Recorded Oxygen saturation Heart rate Body temperature Body weight Body mass index (BMI) Body height Systolic And Diastolic Provider Name and Address Organization Details Last Updated DateTime 8 99 % 77 /min 98.4 [degF] 63385.6 g 24 kg/m2 157.48 cm 90/64 mm[Hg] Amie graf MA [facility] 8 08:55:20 Social History Question Answer Notes LastModified by Organizat ion Details LastModified Time Tobacco Smoking Status Never Smoker [place] [facility] 09/26/2016 09:08:03 Do You Have An Advance [...] 09/26/2016 Are you able to care for yourself independently? Yes Information not available 09/26/2016 What is [...] Hep B, adult 0 completed Kadi Dai null, [facility] 09/16/2016 11:49:53 Tdap 0 completed Kadi Dai null, [facility] 09/16/2016 11:50:01 Influenza, split virus, quadrivalent , PF 8 cancelled patient objection Not Available [facility] 02:22:08 Past Encounters Encounter ID Performer Location Encounter Start Date Encounter Closed Date Diagnosis/Indication Diagnosis SNOMED-CT Code Diagnosis ICD10 Code Diagnosis IMO Codes Diagnosis Note [id number] DIDIER Osorio Main Office [address] [place] [address] 09/26/2016 08:52:20 09/26/2016 10:20:06 Adult health examination 436992923 Z00.00 UTD on pap and mammo, will check blood work Hypothyroidism 01383301 E03.9 Hyperlipidemia 26007090 E78.5 Fatigue 36133166 R53.83 Shoulder joint pain 2679 [address] M25.519 Pain of erika int of elbow 495519906 M25.529 Greater tr ochanteric pain syndrome 1387699 M70.62 [id number] Hardeep Figueroa MD Main Office [address] [facility] [address] [place] [address] 10/02/2016 10:12:52 10/02/2016 11:04:55 Lateral epicondylitis 360958980 M77.11 [id number] DIDIER Osorio Main Office [address] [facility] [address] [place] [address] 11/11/2017 08:39:41 11/11/2017 09:27:14 Hypothyroidism 78089873 E03.9 will recheck labs. Immunization refused 275 562029 Z28.21 Fatigue 13192963 R53.83 c/o fatigue x 2 weeks. med dosing was changed lasy year and had been doing well. Impacted micahumen 4748191 6 H61.22 lavage left. 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 Verónica olivas [place] - [facility] 09/26/2016 12:56:40 10/02/2016 text/html Musculoskeletal PainReported by PatientHPIFor quality, patient reportsachinganddull. For location, patient reportsright elbow. For severity, patient reportssame. For duration, patient reportspresent for 1-6 months. For timing, patient reportsconstant,pain at night, andgradual. For associated symptoms, patient reportsno fever,no weak limbs, andno tingling. For adl (activities of daily living), patient reportsimprove with medication (started meloxicam with some improvement). For context, (no obvious trauma or overuse).ROS as noted in the HPI Hardeep Figueroa MD [address] [address], [place], [address], [facility] 10/02/2016 11:08:21 11/11/2017 text/html Generic HPI TemplateReported by PatientPresents for recheck of thyroid symptoms, feeling more tired in the last couple of weeks. does note some discomfort in her chest intermittently- tightness. denies constipation, diarrhea, sometimes feels thirsty. does not drink enough. No MVI. Josue olivas, [facility] 11/11/2017 09:56:48 OBGyn Episode No OBEpisode recorded.
== END 2025-07-04 10:52 | disposition home or self-care (01) ==
LOC: HO.HMCC 08:42
PROVIDERS: PCP Internal Medicine; Visit Provider Internal Medicine
DX: Z00.01 Encounter for general adult medical examination with abnormal findings (principal); N80.00 Endometriosis of the uterus, unspecified; E03.9 Hypothyroidism, unspecified; L57.0 Actinic keratosis; Z86.0100 Personal history of colon polyps, unspecified; K57.92 Diverticulitis of intestine, part unspecified, without perforation or abscess without bleeding